=== PATIENT | female | born 1975 | race African-American/Black ===

== ENCOUNTER 2017-12-27 00:13 | Inpatient (IN) | payer SELFPAY ==
[2017-12-27 00:32] LABS: URINE HCG POC HCG NEGATIVE (Negative)
[2017-12-27 01:10] LABS: BARBITURATES NEG (NEG); BENZODIAZEPINES NEG (NEG); CANNABINOIDS POS (NEG); COCAINE NEG (NEG); METHADONE NEG (NEG); OPIATES NEG (NEG); PHENCYCLIDINE NEG (NEG)
[2017-12-27 01:21] LABS: AMPHETAMINE/METHAMPHETAMINE NEG (NEG); ETHANOL, URINE NEG (NEG)
[2017-12-27] MEDS: cloNIDine HCL 0.1 MG TABLET PO (01:47)
[2017-12-27 02:05] LABS: ADD MAN DIFF? NO
[2017-12-27 02:08] LABS: BASO # 0.1 x10^3/uL (0.0-0.2); BASO % 1 % (0-3); EOS # 0.1 x10^3/uL (0.0-0.7); EOS % 1 % (0-3); HEMATOCRIT 33.3 % (36.0-47.0); HEMOGLOBIN 11.2 g/dL (12.0-15.5); LYMPH # 4.9 x10^3/uL (1.0-4.8); LYMPH % 51 % (24-48); MEAN CORPUSCULAR HEMOGLOBIN 31 pg (25-35); MEAN CORPUSCULAR HGB CONC 34 g/dL (31-37); MEAN CORPUSCULAR VOLUME 91 fL (79-100); MONO # 0.3 x10^3/uL (0.0-1.1); MONO % 4 % (0-9); NEUT # 4.2 x10^3uL (1.8-7.7); NEUT % 44 % (31-73); PLATELET COUNT 275 x10^3/uL (140-400); RED BLOOD COUNT 3.65 x10^6/uL (3.50-5.40); RED CELL DISTRIBUTION WIDTH 13.5 % (11.5-14.5); WHITE BLOOD COUNT 9.6 x10^3/uL (4.0-11.0)
[2017-12-27 02:21] LABS: ANION GAP 9 (6-14); BLOOD UREA NITROGEN 7 mg/dL (7-20); BUN/CREATININE RATIO 12 (6-20); CALCIUM 8.9 mg/dL (8.5-10.1); CARBON DIOXIDE 25 mmol/L (21-32); CHLORIDE 102 mmol/L (98-107); CREATININE 0.6 mg/dL (0.6-1.0); GFR 132.7; GLUCOSE 256 mg/dL (70-99); NEG OBC SER NEG; POS OBC SER POS; POTASSIUM 3.6 mmol/L (3.5-5.1); PREG TEST PT QUAL NEGATIVE (NEG); SODIUM 136 mmol/L (136-145)
[2017-12-27 02:27] LABS: ALBUMIN 3.1 g/dL (3.4-5.0); ALBUMIN/GLOBULIN RATIO 0.8 (1.0-1.7); ALK PHOS 90 U/L (46-116); ALT (SGPT) 11 U/L (14-59); AST (SGOT) 8 U/L (15-37); LIPASE 125 U/L (73-393); TOTAL BILIRUBIN 0.2 mg/dL (0.2-1.0); TOTAL PROTEIN 7.2 g/dL (6.4-8.2)
[2017-12-27 02:29] LABS: TROPONINI < 0.017 ng/mL (0.000-0.055)
[2017-12-27 02:33] LABS: NT-PRO BNP 112 pg/mL (0-124)
[2017-12-27] MEDS: LABETALOL 20 MG/4 ML DISP.SYRIN. IVP (03:30)
[2017-12-27] MEDS ORDERED: LABETALOL 20 MG/4 ML DISP.SYRIN. IVP (03:30)
[2017-12-27] MEDS ORDERED: ONDANSETRON PF 4 MG/2 ML VIAL. IV (03:30)
[2017-12-27] MEDS ORDERED: INFLUENZA VAX SCREEN BY RX. MC (09:00)
[2017-12-27] MEDS: FLU VACC QS2017-18 (36MOS+)/PF 0.5 ML SYRINGE. VAX IM (09:00)
[2017-12-27 09:50] LABS: TROPONINI < 0.017 ng/mL (0.000-0.055)
[2017-12-27 10:41] LABS: ETHANOL < 10 mg/dL (0-10)
[2017-12-27 10:47] LABS: POC GLUCOSE 206 mg/dL (70-99)
[2017-12-27 11:34] LABS: CHOLESTEROL 145 mg/dL (0-200); HDLC 50 mg/dL (40-60); LDLC 83 mg/dL (0-100); NON-HDL CHOLESTEROL 95 mg/dL (0-129); TRIGLYCERIDES 58 mg/dL (0-150); VLDLC 12 mg/dL (0-40)
[2017-12-27 11:37] LABS: CHOLESTEROL/HDL RATIO 2.9
[2017-12-27 11:41] LABS: POC GLUCOSE 195 mg/dL (70-99)
[2017-12-27] MEDS: amLODIPine BESYLATE 10 MG TABLET PO (13:09)
[2017-12-27] MEDS: LISINOPRIL 5 MG TABLET. PO (13:09)
[2017-12-27] MEDS: hydroCHLOROthiazide 12.5 MG CAPSULE PO (13:09)
[2017-12-27] MEDS: ASPIRIN ENTERIC COATED 81 MG TABLET.DR. PO (13:09)
[2017-12-27 17:32] LABS: POC GLUCOSE 285 mg/dL (70-99)
[2017-12-28 08:05] LABS: POC GLUCOSE 256 mg/dL (70-99)
[2017-12-28] MEDS: glipiZIDE 5 MG TABLET PO (08:45)
[2017-12-28] MEDS ORDERED: ONDANSETRON PF 4 MG/2 ML VIAL. IV (08:45)
[2017-12-28] MEDS ORDERED: DEXTROSE 50% 25 GM / 50ML DISP.SYRIN. IV (08:45)
[2017-12-28] MEDS ORDERED: ACETAMINOPHEN 500 MG TABLET PO (08:45)
[2017-12-28] MEDS: clonazePAM 1 MG TABLET PO (10:32)
[2017-12-28] MEDS: ASPIRIN ENTERIC COATED 81 MG TABLET.DR. PO (10:32)
[2017-12-28] MEDS: hydroCHLOROthiazide 12.5 MG CAPSULE PO (10:32)
[2017-12-28] MEDS: LISINOPRIL 5 MG TABLET. PO (10:33)
[2017-12-28] MEDS: amLODIPine BESYLATE 10 MG TABLET PO (10:33)
[2017-12-28] MEDS ORDERED: INSULIN ASPART 300 UNITS/3 ML INSULN.PEN SQ (11:30)
[2017-12-28 12:00] LABS: POC GLUCOSE 305 mg/dL (70-99)
[2017-12-28] MEDS: metFORMIN 500 MG TABLET PO ×2 (12:49→18:01)
[2017-12-28] MEDS: INSULIN ASPART 300 UNITS/3 ML INSULN.PEN SQ ×4 (12:53→18:05)
[2017-12-28 17:29] LABS: POC GLUCOSE 184 mg/dL (70-99)
[2017-12-28] MEDS: diphenhydrAMINE HCL 25 MG CAPSULE PO (20:47)
[2017-12-28] MEDS: INSULIN DETEMIR 300 UNITS/3 ML INSULN.PEN. SQ (20:51)
[2017-12-28] MEDS ORDERED: INSULIN DETEMIR 300 UNITS/3 ML INSULN.PEN. SQ (21:00)
[2017-12-29 00:51] LABS: POC GLUCOSE 111 mg/dL (70-99)
[2017-12-29 01:08] LABS: HEMOGLOBIN A1C 9.9 % (4.8-5.6)
[2017-12-29 07:53] LABS: POC GLUCOSE 189 mg/dL (70-99)
[2017-12-29] MEDS: LISINOPRIL 5 MG TABLET. PO (09:26)
[2017-12-29] MEDS: metFORMIN 500 MG TABLET PO (09:26)
[2017-12-29] MEDS: amLODIPine BESYLATE 10 MG TABLET PO (09:27)
[2017-12-29] MEDS: ASPIRIN ENTERIC COATED 81 MG TABLET.DR. PO (09:27)
[2017-12-29] MEDS: hydroCHLOROthiazide 12.5 MG CAPSULE PO (09:27)
[2017-12-29] MEDS: INSULIN ASPART 300 UNITS/3 ML INSULN.PEN SQ ×4 (09:42→12:00)
[2017-12-29 12:30] LABS: POC GLUCOSE 84 mg/dL (70-99)
[2017-12-29] MEDS ORDERED: INSULIN DETEMIR 300 UNITS/3 ML INSULN.PEN. SQ (21:00)
== END 2017-12-29 16:20 | disposition home or self-care (01) | DRG 313 ==
LOC: ER 00:13 → 6 SOUTH 03:00
DX: R07.89 Other chest pain (principal); E11.65 Type 2 diabetes mellitus with hyperglycemia; E66.01 Morbid (severe) obesity due to excess calories; I10 Essential (primary) hypertension; E78.5 Hyperlipidemia, unspecified; F12.90 Cannabis use, unspecified, uncomplicated; F17.210 Nicotine dependence, cigarettes, uncomplicated; J44.9 Chronic obstructive pulmonary disease, unspecified; K21.9 Gastro-esophageal reflux disease without esophagitis; M19.90 Unspecified osteoarthritis, unspecified site; Z68.33 Body mass index [BMI] 33.0-33.9, adult; Z79.4 Long term (current) use of insulin; Z79.899 Other long term (current) drug therapy; Z82.3 Family history of stroke; Z82.49 Family history of ischemic heart disease and other diseases of the circulatory system; Z83.3 Family history of diabetes mellitus; Z91.19 Patient's noncompliance with other medical treatment and regimen; Z89.421 Acquired absence of other right toe(s)
CPT/HCPCS: 36415; 71045; 80053; 80061; 80307; 81025; 82962; 83036; 83690; 83880; 84443; 84484; 84703; 85025; 93005; 93306; 99285-25; 99406; G0480; J1815; Q0163

== ENCOUNTER 2019-06-01 03:44 | Inpatient (IN) | payer SELFPAY ==
[~2019-06-01] VITALS: Ht 165.1 cm; Wt 89.8 kg
[~2019-06-01 03:44] MED LIST: AMLO10TA4 PO; CLON2TAB PO; GLIP10TA13 PO; HYDR12.575 PO; INSU100C4 SQ; INSU100I13 SQ; INSU100V13 SQ; LISI-338 PO; METF10007 PO; METF500T16 PO
[2019-06-01] MEDS ORDERED: IV NORMAL SALINE 1000ML BAG 1,000 ML IV ONE ×2 (04:30→05:30)
[2019-06-01] MEDS ORDERED: ONDANSETRON PF 4 MG/2 ML VIAL. IV ONE (04:30)
[2019-06-01] MEDS ORDERED: METOCLOPRAMIDE HCL 10 MG/2 ML VIAL. IV ONE (04:30)
[2019-06-01 04:47] LABS: BASO # 0.1 x10^3/uL (0.0-0.2); BASO % 1 % (0-3); EOS % 0 % (0-3); HEMATOCRIT 39.3 % (36.0-47.0); HEMOGLOBIN 13.1 g/dL (12.0-15.5); LYMPH # 3.5 x10^3/uL (1.0-4.8); LYMPH % 23 % (24-48); MEAN CORPUSCULAR HEMOGLOBIN 30 pg (25-35); MEAN CORPUSCULAR HGB CONC 33 g/dL (31-37); MEAN CORPUSCULAR VOLUME 89 fL (79-100); MONO # 0.4 x10^3/uL (0.0-1.1); MONO % 3 % (0-9); NEUT # 10.9 x10^3/uL (1.8-7.7); NEUT % 73 % (31-73); PLATELET COUNT 338 x10^3/uL (140-400); RED BLOOD COUNT 4.41 x10^6/uL (3.50-5.40); RED CELL DISTRIBUTION WIDTH 14.7 % (11.5-14.5)
--- NOTE | 2019-06-01 04:51 | RAD ---
PORTABLE CHEST 1V Clinical Indication: Shortness of breath. Comparison: AP chest, 12/27/2017. Findings: There is tubing that projects over the left upper lung. The cardiomediastinal silhouette is normal. Lungs are clear. There is no pneumothorax. No pleural effusion is appreciated. No acute bone abnormality. IMPRESSION: No acute cardiopulmonary process. Electronically signed by: Cade Kramer MD (06/01/2019 4:49 AM) [facility]
[2019-06-01 05:00] LABS: CALCIUM 11.1 mg/dL (8.5-10.1); CREATININE 0.9 mg/dL (0.6-1.0); GFR 82.7; POTASSIUM 3.3 mmol/L (3.5-5.1); PREG TEST PT QUAL NEGATIVE (NEG)
[2019-06-01 05:03] LABS: ALBUMIN 4.4 g/dL (3.4-5.0); ALBUMIN/GLOBULIN RATIO 0.9 (1.0-1.7); TOTAL BILIRUBIN 0.6 mg/dL (0.2-1.0); TOTAL PROTEIN 9.2 g/dL (6.4-8.2)
[2019-06-01] MEDS ORDERED: ONDANSETRON PF 4 MG/2 ML VIAL. IV PRN (05:15)
--- NOTE | 2019-06-01 05:21 | PHYS DOC ---
Past Medical History Past Medical History: Diabetes-Type II, Hypertension Past Surgical History: Additional Past Surgical Histo: LEFT TOE AMPUTATION Alcohol Use: None Drug Use: Marijuana Adult General Chief Complaint Chief Complaint: NAUSEA/VOMITING/DIARRHA HPI HPI Patient is a 43 year old like 2. 2 more mild female who presents with chief complaint of vomiting. She has a history of high brought in by ambulance with chief complaint vomiting and high blood sugar. She has been off of her diabetes medicine since she got discharged from [facility] for his right toe amputation back in October. She says she has tried the [id number] insulin but "it doesn't wo rk for me" She has been vomiting for the last 24 hours she cannot keep anything down she has vomited 3 times in my presence in the few minutes was communicating with her initially. She really is not having any significant abdominal pain just some pressure in the upper abdomen no chest pain no trouble breathing she smokes cigarettes she says she denies alcohol or drugs I've ordered a drug screen that is pending at this time. Patient has occasional dysuria as well Review of Systems Review of Systems Constitutional: Denies fever or chills [] Eyes: Denies change in visual acuity, redness, or eye pain [] HENT: Denies nasal congestion or sore throat [] Respiratory: Denies cough or shortness of breath [] Cardiovascular: No additional information not addressed in HPI [] GI: Denies abdominal pain, nausea, vomiting, bloody stools or diarrhea [] : Denies dysuria or hematuria [] Musculoskeletal: Denies back pain or joint pain [] Integument: Denies rash or skin lesions [] Neurologic: Denies headache, focal weakness or sensory changes [] Endocrine: Denies polyuria or polydipsia [] All other systems were reviewed and found to be within normal limits, except as documented in this note. Current Medications Current Medications Current Medications Medications (Trade) Dose Ordered Sig/Tina Start Time Stop Time Status Last Admin Dose Admin Diphenhydramine HCl (Benadryl) 50 mg 1X ONCE 06/01/19 05:30 06/01/19 05:31 06/01/19 05:08 50 MG Insulin Human Regular (HumuLIN R VIAL) 10 unit 1X ONCE 06/01/19 05:30 06/01/19 05:31 Labetalol HCl (Normodyne Iv Push) 20 mg 1X ONCE 06/01/19 05:30 06/01/19 05:31 06/01/19 05:09 20 MG Metoclopramide HCl (Reglan Vial) 10 mg 1X ONCE 06/01/19 04:30 06/01/19 04:31 DC 06/01/19 04:41 10 MG Ondansetron HCl (Zofran) 4 mg PRN Q8HRS PRN 06/01/19 05:15 06/02/19 05:14 Sodium Chloride 1,000 ml @ 125 mls/hr Q8H 06/01/19 05:30 06/02/19 05:29 Allergies Allergies Allergies Coded Allergies Type Severity Reaction Last Updated Verified No Known Drug Allergies 12/27/17 No Physical Exam Physical Exam Constitutional: Well developed, well nourished, no acute distress, non-toxic appearance. [] HENT: Normocephalic, atraumatic, bilateral external ears normal, oropharynx moist, no oral exudates, nose normal. [] Eyes: PERRLA, EOMI, conjunctiva normal, no discharge. [] Neck: Normal range of motion, no tenderness, supple, no stridor. [] Cardiovascular:Heart rate regular rhythm, no murmur [] Lungs & Thorax: Bilateral breath sounds clear to auscultation [] Abdomen: Bowel sounds normal, soft, no tenderness, no masses, no pulsatile masses. [] Skin: Warm, dry, no erythema, no rash. [] Back: No tenderness, no CVA tenderness. [] Extremities: No tenderness, no cyanosis, no clubbing, ROM intact, no edema. [] Neurologic: Alert and oriented X 3, normal motor function, normal sensory function, no focal deficits noted. [] Psychologic: Affect normal, judgement normal, mood normal. [] Current Patient Data Vital Signs Vital Signs Date Time Temp Pulse Resp B/P (MAP) Pulse Ox O2 Delivery O2 Flow Rate FiO2 06/01/19 05:09 121 189/127 06/01/19 03:50 98.1 18 98 Room Air 98.1 Lab Values Laboratory Tests Test 06/01/19 04:40 White Blood Count 15.0 x10^3/uL (4.0-11.0) H Red Blood Count 4.41 x10^6/uL (3.50-5.40) Hemoglobin 13.1 g/dL (12.0-15.5) Hematocrit 39.3 % (36.0-47.0) Mean Corpuscular Volume 89 fL (79-100) Mean Corpuscular Hemoglobin 30 pg (25-35) Mean Corpuscular Hemoglobin Concent 33 g/dL (31-37) Red Cell Distribution Width 14.7 % (11.5-14.5) H Platelet Count 338 x10^3/uL (140-400) Neutrophils (%) (Auto) 73 % (31-73) Lymphocytes (%) (Auto) 23 % (24-48) L Monocytes (%) (Auto) 3 % (0-9) Eosinophils (%) (Auto) 0 % (0-3) Basophils (%) (Auto) 1 % (0-3) Neutrophils # (Auto) 10.9 x10^3/uL (1.8-7.7) H Lymphocytes # (Auto) 3.5 x10^3/uL (1.0-4.8) Monocytes # (Auto) 0.4 x10^3/uL (0.0-1.1) Eosinophils # (Auto) 0.0 x10^3/uL (0.0-0.7) Basophils # (Auto) 0.1 x10^3/uL (0.0-0.2) Sodium Level 135 mmol/L (136-145) L Potassium Level 3.3 mmol/L (3.5-5.1) L Chloride Level 92 mmol/L (98-107) L Carbon Dioxide Level 28 mmol/L (21-32) Anion Gap 15 (6-14) H Blood Urea Nitrogen 15 mg/dL (7-20) Creatinine 0.9 mg/dL (0.6-1.0) Estimated GFR (Cockcroft-Gault) 82.7 BUN/Creatinine Ratio 17 (6-20) Glucose Level 368 mg/dL (70-99) H Calcium Level 11.1 mg/dL (8.5-10.1) H Total Bilirubin 0.6 mg/dL (0.2-1.0) Aspartate Amino Transferase (AST) 14 U/L (15-37) L Alanine Aminotransferase (ALT) 24 U/L (14-59) Alkaline Phosphatase 130 U/L (46-116) H Troponin I Quantitative < 0.017 ng/mL (0.000-0.055) Total Protein 9.2 g/dL (6.4-8.2) H Albumin 4.4 g/dL (3.4-5.0) Albumin/Globulin Ratio 0.9 (1.0-1.7) L Lipase 75 U/L (73-393) Serum Test, Qualitative Negative (NEG) Laboratory Tests 06/01/19 04:40 Laboratory Tests 06/01/19 04:40 EKG EKG EKG shows sinus tach rate 128 there are some likely rate related ST depressions noted laterally E Baron also be related to hypokalemia of note the troponin was negative and patient denied chest pain[] Radiology/Procedures Radiology/Procedures [] Impressions: Findings: There is tubing that projects over the left upper lung. The cardiomediastinal silhouette is normal. Lungs are clear. There is no pneumothorax. No pleural effusion is appreciated. No acute bone abnormality. IMPRESSION: No acute cardiopulmonary process. Electronically signed by: Cade Del Angel MD (06/01/2019 4:49 AM) [facility] DICTATED and SIGNED BY: CADE DEL ANGEL MD DATE: 06/01/19 0449 Course & Med Decision Making Course & Med Decision Making Pertinent Labs and Imaging studies reviewed. (See chart for details) []Noted the leukocytosis is probably from vomiting urinalysis is not received yet. Chest x-ray was negative for pneumonia. Patient is not here regularly for this complaints I have opted to do a CT scan abdomen and pelvis to rule out occult obstruction or other infection. Patient will be admitted to the service of Dr. dixon for further evaluation and treatment of what is presumed to be gastroparesis. Potassium was a little low we will replete that otherwise we gave Reglan IV fluids and Zofran and Benadryl in the emergency room. In addition blood pressure was 190/120 with some tachycardia in the 115 120 range. This could be from her discomfort but she has has poorly controlled hypertension she is not taking medicine for that either side did give her dose of IV labetalol in the emergency room. At the time of this dictation his CT scan is currently pending. Blood sugar was elevated anion gap was 15 but the bicarbonate level was normal I do not think this is DKA I did give him 1 dose of IV insulin in the emergency room. Dragon Disclaimer Dragon Disclaimer This electronic medical record was generated, in whole or in part, using a voice recognition dictation system. Departure Departure Impression: Primary Impression: Gastroparesis Additional Impression: Hyperglycemia Disposition: ADMITTED INPATIENT Admitting Physician: BAYRON Condition: STABLE Referrals: NO PCP (PCP) Problem Qualifiers ALICIA BAUER MD Jun 01, 2019 05:21
[2019-06-01] MEDS ORDERED: LABETALOL 20 MG/4 ML DISP.SYRIN. IVP ONE (05:30)
[2019-06-01] MEDS ORDERED: INSULIN REGULAR 100 UNIT/ML 3ML VIAL. IV ONE (05:30)
[2019-06-01] MEDS ORDERED: diphenhydrAMINE 50 MG/ML VIAL IVP ONE (05:30)
[2019-06-01] MEDS: POTASSIUM CHLORIDE 10MEQ 100 ML IV SCH ×2 (05:38→06:49)
--- NOTE | 2019-06-01 06:14 | RAD ---
PQRS Compliance Statement: One or more of the following individualized dose reduction techniques were utilized for this examination: 1. Automated exposure control 2. Adjustment of the mA and/or kV according to patient size 3. Use of iterative reconstruction technique CT ABDOMEN PELVIS WO CONTRAST Clinical Indication: Poorly controlled diabetic, periumbilical pain and vomiting. Comparison: None. Technique: Helical CT imaging of the abdomen and pelvis is performed without IV or oral contrast. Findings: Evaluation of solid organs and bowel is limited without oral and IV contrast, decreasing sensitivity for detection of pathology. Respiratory motion artifact in the lung bases. Groundglass opacities in the bilateral lower lobes are probably atelectasis. No consolidation. Cardiac size normal. Liver, gallbladder, spleen, pancreas, adrenal glands, abdominal aorta, and kidneys are normal. Stomach unremarkable. No dilated small bowel. No colon wall thickening. The appendix is normal. No abdominal adenopathy or free fluid. The urinary bladder is mildly distended, otherwise normal. Uterus unremarkable. No pelvic free fluid. No acute bone abnormality. IMPRESSION: No acute abdominal or pelvic abnormality. Electronically signed by: Cade Kramer MD (06/01/2019 6:11 AM) [facility]
[2019-06-01] MEDS ORDERED: cloNIDine HCL 0.1 MG TABLET PO ONE (07:00)
--- NOTE | 2019-06-01 07:19 | EKG ---
[facility] [address] [place] [address] Test Date: 2019-06-01 Test Time: 04:52:19 Pat Name: NIKKI CAMPA Department: Room: Gender: F Fox Farmer: : 1975 Requested By: ALICIA BAUER Order Number: [id number] Reading MD: Measurements Intervals [place] Rate: 128 P: -82 NC: 152 QRS: 49 QRSD: 92 T: 76 QT: 298 QTc: 438 Interpretive Statements SINUS TACHYCARDIA LEFT ATRIAL ABNORMALITY LVH WITH REPOLARIZATION ABNORMALITY ABNORMAL ECG RI6.01 No previous ECG available for comparison
[2019-06-01] MEDS ORDERED: ACETAMINOPHEN/CODEINE 300/30MG TABLET. PO PRN (07:30)
[2019-06-01] MEDS ORDERED: DEXTROSE 50% 25 GM / 50ML DISP.SYRIN. IV PRN (07:30)
[2019-06-01] MEDS ORDERED: ACETAMINOPHEN 500 MG TABLET PO PRN (07:30)
[2019-06-01] MEDS: IV NORMAL SALINE 1000ML BAG 1,000 ML IV SCH ×3 (07:37→23:04)
--- NOTE | 2019-06-01 08:00 | NUR ---
Patient is a 43 year old female, admitted due to nausea, vomiting for 2 days. She arrived at the unit at 0700 via bed.The patient is sleeping but easily arousable, denies pain, claims that nausea is controlled. She is oriented to the unit and hospital policies; call light placed within reach.
[2019-06-01 08:33] VITALS: BP 102/66
[2019-06-01] MEDS ORDERED: NON FORMULARY ITEM (Insulin Detemir (Levemir) 10 UNIT) SQ SCH (09:00)
[2019-06-01] MEDS: LISINOPRIL 5 MG TABLET. PO SCH (09:57)
[2019-06-01] MEDS: INSULIN LISPRO 300 UNITS/3 ML INSULN.PEN. SQ SCH ×6 (10:06→17:00)
[2019-06-01] MEDS: ONDANSETRON PF 4 MG/2 ML VIAL. IV PRN ×2 (10:32→20:55)
[2019-06-01 10:58] VITALS: BP 194/170
[2019-06-01 11:00] VITALS: BP 195/88
--- NOTE | 2019-06-01 11:09 | PDOC1 ---
History and Physical Date of Admission Date of Admission DATE: 06/01/19 TIME: 11:04 Identification/Chief Complaint Chief Complaint n/v Source Source: Caregiver, Chart review, Patient History of Present Illness History of Present Illness 84-year-old -[place] female, obese with a BMI 34, known diabetes type 2 on Levemir 25 daily at bedtime and she cannot recall her short-acting insulin, self-pay, hence has been off meds with unknown A1c. Vomited 5 times at the ER. Still vomiting dry heaving and restless. Blood sugar was 400s on admission. No gap. Still dry heaving and has never had a formal gastric emptying test or gas troparesis diagnosis. She has been having this problem for years. Also mentions to me what sounds like sxs of neuropathy - not on any meds We will back down to nothing by mouth, continue normal saline, increase rate to 125 mL an hour, get gastric emptying test Start gabapentin, start a second agent antinausea meds Check A1c Blood pressure on the high side but currently dry heaving I have added when necessary's Hypokalemic 3.3 and GOT K replacement 20 IV total through the ER Mild pseudohyponatremia 135 with reactive leukocytosis 15 We'll check a UA in this bad diabetic Past Medical History Cardiovascular: HTN, Hyperlipidemia Pulmonary: No pertinent hx CENTRAL NERVOUS SYSTEM: Other GI: GERD Heme/Onc: No pertinent hx Hepatobiliary: No pertinent hx Psych: No pertinent hx Musculoskeletal: Osteoarthritis Rheumatologic: No pertinent hx Infectious disease: Other Renal/: No pertinent hx Endocrine: Diabetes Past Surgical History Past Surgical History: , Other Family History Family History: Coronary Artery Disease, Stroke Social History Smoke: No ALCOHOL: none Drugs: Marijuana Current Medications Current Medications Current Medications Metoclopramide HCl (Reglan Vial) 10 mg 1X ONCE IV Last administered on 06/01/19at 04:41; Start 06/01/19 at 04:30; Stop 06/01/19 at 04:31; Status DC Ondansetron HCl (Zofran) 4 mg 1X ONCE IV Last administered on 06/01/19at 04:42; Start 06/01/19 at 04:30; Stop 06/01/19 at 04:31; Status DC Sodium Chloride 1,000 ml @ 1,000 mls/hr 1X ONCE IV Last administered on 06/01/19at 04:41; Start 06/01/19 at 04:30; Stop 06/01/19 at 05:29; Status DC Labetalol HCl (Normodyne Iv Push) 20 mg 1X ONCE IVP Last administered on 06/01/19at 05:09; Start 06/01/19 at 05:30; Stop 06/01/19 at 05:31; Status DC Diphenhydramine HCl (Benadryl) 50 mg 1X ONCE IVP Last administered on at 05:08; Start 06/01/19 at 05:30; Stop 06/01/19 at 05:31; Status DC Sodium Chloride 1,000 ml @ 1,000 mls/hr 1X ONCE IV Last administered on 06/01/19at 05:08; Start 06/01/19 at 05:30; Stop 06/01/19 at 06:29; Status DC Insulin Human Regular (HumuLIN R VIAL) 10 unit 1X ONCE IV Last administered on 06/01/19at 05:37; Start 06/01/19 at 05:30; Stop 06/01/19 at 05:31; Status DC Ondansetron HCl (Zofran) 4 mg PRN Q8HRS PRN IV NAUSEA/VOMITING 1ST CHOICE; Start 06/01/19 at 05:15; Stop 06/01/19 at 07:30; Status DC Sodium Chloride 1,000 ml @ 125 mls/hr Q8H IV Last administered on 06/01/19at 07:37; Start 06/01/19 at 05:30; Stop 06/02/19 at 05:29 Potassium Chloride/Water 100 ml @ 100 mls/hr Q1H IV Last administered on 06/01/19at 06:49; Start 06/01/19 at 06:00; Stop 06/01/19 at 07:59; Status DC Clonidine HCl (Catapres) 0.1 mg 1X ONCE PO Last administered on 06/01/19at 06:38; Start 06/01/19 at 07:00; Stop 06/01/19 at 07:01; Status DC Ondansetron HCl (Zofran) 4 mg PRN Q6HRS PRN IV NAUSEA/VOMITING 1ST CHOICE Last administered on 06/01/19at 10:32; Start 06/01/19 at 07:30 Labetalol HCl (Normodyne Iv Push) 20 mg PRN Q2HR PRN IVP HYPERTENSION; Start 06/01/19 at 07:30 Acetaminophen (Tylenol) 500 mg PRN Q6HRS PRN PO HEADACHE / TEMP; Start 06/01/19 at 07:30 Acetaminophen/ Codeine Phosphate (Tylenol #3) 1 tab PRN Q6HRS PRN PO MILD PAIN 1-3; Start 06/01/19 at 07:30 Prochlorperazine Edisylate (Compazine) 10 mg PRN Q6HRS PRN IV NAUSEA/VOMITING; Start 06/01/19 at 07:30 Non-Formulary Medication (Insulin Detemir (Levemir)) 10 unit TID SQ ; Start 06/01/19 at 09:00; Stop 06/01/19 at 09:00; Status DC Insulin Glargine (Lantus) 30 units QHS SQ ; Start 06/01/19 at 21:00 Lisinopril (Prinivil) 5 mg DAILY PO Last administered on 06/01/19at 09:57; Start 06/01/19 at 09:00 Insulin Human Lispro (HumaLOG) 10 units TIDWMEALS SQ Last administered on 06/01/19at 10:06; Start 06/01/19 at 08:00 Insulin Human Lispro (HumaLOG) 0-9 UNITS TIDWMEALS SQ Last administered on 06/01/19at 10:06; Start 06/01/19 at 08:00 Dextrose (Dextrose 50%-Water Syringe) 12.5 gm PRN Q15MIN PRN IV SEE COMMENTS; Start 06/01/19 at 07:30 Active Scripts Active Metformin Hcl 500 Mg Tablet 500 Mg PO BIDWMEALS 30 Days Lisinopril 5 Mg Tablet 1 Tab PO DAILY Levemir (Insulin Detemir) 100 Unit/1 Ml Vial 30 Unit SQ QHS 30 Days Levemir (Insulin Detemir) 100 Unit/1 Ml Vial 10 Unit SQ TID 30 Days Reported Lisinopril 5 Mg Tablet 1 Tab PO DAILY Allergies Allergies: Coded Allergies: No Known Drug Allergies (Unverified , 12/27/17) ROS Review of System As per history of present illness, dry heaving, nausea, emesis, the rest of ROS 14 point negative Physical Exam General: Alert, Oriented X3, Cooperative, Other (looks uncomfortable, restless because of dry heaving) HEENT: Atraumatic, PERRLA Lungs: Clear to auscultation, Normal air movement Heart: S1S2, no thrills, no rubs, no gallops, no murmurs, other (sinus tachycardia) Abdomen: Normal bowel sounds, Soft, No tenderness, No hepatosplenomegaly, No masses Rectal Exam: not examined PELVIC: Nml ext genitalia Extremities: No clubbing, No cyanosis, No edema, Normal pulses, No tenderness/swelling Skin: No rashes, No breakdown, No significant lesion Neuro: Normal gait, Normal speech, Strength at 5/5 X4 ext, Normal tone, Sensation intact, Cranial nerves 3-12 NL, Reflexes 2+ Psych/Mental Status: Mental status NL, Mood NL Vitals Vitals Vital Signs Date Time Temp Pulse Resp B/P (MAP) Pulse Ox O2 Delivery O2 Flow Rate FiO2 06/01/19 10:58 98.9 111 16 194/170 (178) 100 Room Air 98.9 Labs Labs Laboratory Tests Test 06/01/19 04:40 06/01/19 09:34 White Blood Count 15.0 x10^3/uL (4.0-11.0) Red Blood Count 4.41 x10^6/uL (3.50-5.40) Hemoglobin 13.1 g/dL (12.0-15.5) Hematocrit 39.3 % (36.0-47.0) Mean Corpuscular Volume 89 fL (79-100) Mean Corpuscular Hemoglobin 30 pg (25-35) Mean Corpuscular Hemoglobin Concent 33 g/dL (31-37) Red Cell Distribution Width 14.7 % (11.5-14.5) Platelet Count 338 x10^3/uL (140-400) Neutrophils (%) (Auto) 73 % (31-73) Lymphocytes (%) (Auto) 23 % (24-48) Monocytes (%) (Auto) 3 % (0-9) Eosinophils (%) (Auto) 0 % (0-3) Basophils (%) (Auto) 1 % (0-3) Neutrophils # (Auto) 10.9 x10^3/uL (1.8-7.7) Lymphocytes # (Auto) 3.5 x10^3/uL (1.0-4.8) Monocytes # (Auto) 0.4 x10^3/uL (0.0-1.1) Eosinophils # (Auto) 0.0 x10^3/uL (0.0-0.7) Basophils # (Auto) 0.1 x10^3/uL (0.0-0.2) Sodium Level 135 mmol/L (136-145) Potassium Level 3.3 mmol/L (3.5-5.1) Chloride Level 92 mmol/L (98-107) Carbon Dioxide Level 28 mmol/L (21-32) Anion Gap 15 (6-14) Blood Urea Nitrogen 15 mg/dL (7-20) Creatinine 0.9 mg/dL (0.6-1.0) Estimated GFR (Cockcroft-Gault) 82.7 BUN/Creatinine Ratio 17 (6-20) Glucose Level 368 mg/dL (70-99) Calcium Level 11.1 mg/dL (8.5-10.1) Total Bilirubin 0.6 mg/dL (0.2-1.0) Aspartate Amino Transf (AST/SGOT) 14 U/L (15-37) Alanine Aminotransferase (ALT/SGPT) 24 U/L (14-59) Alkaline Phosphatase 130 U/L (46-116) Troponin I Quantitative < 0.017 ng/mL (0.000-0.055) Total Protein 9.2 g/dL (6.4-8.2) Albumin 4.4 g/dL (3.4-5.0) Albumin/Globulin Ratio 0.9 (1.0-1.7) Lipase 75 U/L (73-393) Serum Test, Qualitative Negative (NEG) Glucose (Fingerstick) 244 mg/dL (70-99) Laboratory Tests Test 06/01/19 04:40 06/01/19 09:34 White Blood Count 15.0 x10^3/uL (4.0-11.0) Red Blood Count 4.41 x10^6/uL (3.50-5.40) Hemoglobin 13.1 g/dL (12.0-15.5) Hematocrit 39.3 % (36.0-47.0) Mean Corpuscular Volume 89 fL (79-100) Mean Corpuscular Hemoglobin 30 pg (25-35) Mean Corpuscular Hemoglobin Concent 33 g/dL (31-37) Red Cell Distribution Width 14.7 % (11.5-14.5) Platelet Count 338 x10^3/uL (140-400) Neutrophils (%) (Auto) 73 % (31-73) Lymphocytes (%) (Auto) 23 % (24-48) Monocytes (%) (Auto) 3 % (0-9) Eosinophils (%) (Auto) 0 % (0-3) Basophils (%) (Auto) 1 % (0-3) Neutrophils # (Auto) 10.9 x10^3/uL (1.8-7.7) Lymphocytes # (Auto) 3.5 x10^3/uL (1.0-4.8) Monocytes # (Auto) 0.4 x10^3/uL (0.0-1.1) Eosinophils # (Auto) 0.0 x10^3/uL (0.0-0.7) Basophils # (Auto) 0.1 x10^3/uL (0.0-0.2) Sodium Level 135 mmol/L (136-145) Potassium Level 3.3 mmol/L (3.5-5.1) Chloride Level 92 mmol/L (98-107) Carbon Dioxide Level 28 mmol/L (21-32) Anion Gap 15 (6-14) Blood Urea Nitrogen 15 mg/dL (7-20) Creatinine 0.9 mg/dL (0.6-1.0) Estimated GFR (Cockcroft-Gault) 82.7 BUN/Creatinine Ratio 17 (6-20) Glucose Level 368 mg/dL (70-99) Calcium Level 11.1 mg/dL (8.5-10.1) Total Bilirubin 0.6 mg/dL (0.2-1.0) Aspartate Amino Transf (AST/SGOT) 14 U/L (15-37) Alanine Aminotransferase (ALT/SGPT) 24 U/L (14-59) Alkaline Phosphatase 130 U/L (46-116) Troponin I Quantitative < 0.017 ng/mL (0.000-0.055) Total Protein 9.2 g/dL (6.4-8.2) Albumin 4.4 g/dL (3.4-5.0) Albumin/Globulin Ratio 0.9 (1.0-1.7) Lipase 75 U/L (73-393) Serum Test, Qualitative Negative (NEG) Glucose (Fingerstick) 244 mg/dL (70-99) VTE Prophylaxis Ordered VTE Prophylaxis Devices: Yes VTE Pharmacological Prophylaxi: Yes Assessment/Plan Assessment/Plan DM 2 uncontrolled with unknown A1c HONK, mild with no coma Likely undiagnosed gastroparesis Hypokalemia secondary to vomiting Pseudohyponatremia Reactive leukocytosis-rule out UTI in this diabetic Sinus tachycardia Neuropathy PLAn: Admit 2 midnights Increase normal saline to 1 25 mL an hour Resume home Levemir Start NovoLog 10units 3 times a day Check A1c Gastric emptying test Add second agent antinausea meds No need for GI consult-I might be able to manage this Monitor that reactive leukocytosis Check a UA Recheck labs tomorrow Trial of gabapentin for the neuropathy TIERRA BAUMAN MD Jun 01, 2019 11:09
--- NOTE | 2019-06-01 11:17 | NUR ---
SW reviewed pt's medical chart and evaluated for potential needs. Pt is from home with spouse and was admitted for gastroparesis and hyperglycemia. Pt is on room air and PT/OT has not been ordered. Pt is uninsured and does not qualify for services unless she can private pay. At this time, there are no dc needs. SW will continue to follow and be available if dc planning is required.
[2019-06-01] MEDS: LABETALOL 20 MG/4 ML DISP.SYRIN. IVP PRN ×2 (11:29→22:50)
[2019-06-01] MEDS: GABAPENTIN 100 MG CAPSULE. PO SCH ×2 (14:00→21:00)
[2019-06-01 15:00] VITALS: BP 148/87
[2019-06-01] MEDS ORDERED: LIDO:MAALOX 1:1 20 ML SINGLE DOSE. PO PRN (16:15)
[2019-06-01] MEDS ORDERED: fentaNYL PF VIAL 100 MCG/2 ML VIAL IV PRN (16:15)
[2019-06-01] MEDS: PANTOPRAZOLE IV PUSH 40 MG VIAL. IVP SCH (16:19)
[2019-06-01] MEDS: PROCHLORPERAZINE 10 MG/2 ML VIAL. IV PRN (16:26)
[2019-06-01 19:02] VITALS: BP 87/49
[2019-06-01] MEDS ORDERED: ACETAMINOPHEN 650 MG SUPP.RECT. PR PRN (21:30)
[2019-06-01] MEDS: diphenhydrAMINE 50 MG/ML VIAL IVP PRN (22:25)
[2019-06-01] MEDS: INSULIN GLARGINE 300 UNITS/3 ML INSULN.PEN. SQ SCH (23:09)
[2019-06-01 23:52] VITALS: BP 99/55
[2019-06-02] VITALS (7 sets, daily range): BP systolic 74–216; BP diastolic 41–120
[2019-06-02 01:07] LABS: HEMOGLOBIN A1C 11.5 % (4.8-5.6)
[2019-06-02] MEDS: PROCHLORPERAZINE 10 MG/2 ML VIAL. IV PRN ×3 (03:36→18:14)
[2019-06-02] MEDS: LABETALOL 20 MG/4 ML DISP.SYRIN. IVP PRN (03:46)
[2019-06-02 04:38] LABS: BILIRUBIN,URINE NEGATIVE (NEG); CLARITY,URINE CLEAR; COLOR,URINE YELLOW; NITRITE,URINE NEGATIVE (NEG); PH,URINE 6.5; PROTEIN,URINE NEGATIVE (NEG-TRACE); UROBILINOGEN,URINE 0.2 mg/dL (0.2 mg/dL)
[2019-06-02 04:38] LABS: BASO # 0.1 x10^3/uL (0.0-0.2); BASO % 0 % (0-3); EOS % 0 % (0-3); HEMATOCRIT 37.1 % (36.0-47.0); HEMOGLOBIN 12.2 g/dL (12.0-15.5); LYMPH # 4.1 x10^3/uL (1.0-4.8); LYMPH % 26 % (24-48); MEAN CORPUSCULAR HEMOGLOBIN 30 pg (25-35); MEAN CORPUSCULAR HGB CONC 33 g/dL (31-37); MEAN CORPUSCULAR VOLUME 90 fL (79-100); MONO # 0.6 x10^3/uL (0.0-1.1); MONO % 4 % (0-9); NEUT # 11.2 x10^3/uL (1.8-7.7); NEUT % 70 % (31-73); PLATELET COUNT 303 x10^3/uL (140-400); RED BLOOD COUNT 4.12 x10^6/uL (3.50-5.40); RED CELL DISTRIBUTION WIDTH 14.8 % (11.5-14.5); WHITE BLOOD COUNT 15.9 x10^3/uL (4.0-11.0)
[2019-06-02 04:44] LABS: BARBITURATES NEG (NEG); BENZODIAZEPINES NEG (NEG); CANNABINOIDS POS (NEG); COCAINE NEG (NEG); METHADONE NEG (NEG); OPIATES NEG (NEG); PHENCYCLIDINE NEG (NEG)
[2019-06-02 04:46] LABS: AMPHETAMINE/METHAMPHETAMINE NEG (NEG)
[2019-06-02 04:51] LABS: BACTERIA,URINE MODERATE /HPF (0-FEW); RBC,URINE OCC /HPF (0-2); SQUAMOUS EPITHELIAL CELL,UR MOD /LPF
[2019-06-02 05:01] LABS: ALBUMIN 3.8 g/dL (3.4-5.0); ALBUMIN/GLOBULIN RATIO 0.9 (1.0-1.7); CALCIUM 9.1 mg/dL (8.5-10.1); CREATININE 0.7 mg/dL (0.6-1.0); GFR 110.5; POTASSIUM 3.1 mmol/L (3.5-5.1); TOTAL BILIRUBIN 0.8 mg/dL (0.2-1.0); TOTAL PROTEIN 8.2 g/dL (6.4-8.2)
[2019-06-02] MEDS: ONDANSETRON PF 4 MG/2 ML VIAL. IV PRN ×2 (06:16→15:25)
[2019-06-02] MEDS: INSULIN LISPRO 300 UNITS/3 ML INSULN.PEN. SQ SCH ×6 (08:00→17:56)
[2019-06-02] MEDS: LISINOPRIL 5 MG TABLET. PO SCH ×2 (09:00→10:03)
[2019-06-02] MEDS: GABAPENTIN 100 MG CAPSULE. PO SCH ×4 (09:00→20:51)
[2019-06-02] MEDS: PANTOPRAZOLE IV PUSH 40 MG VIAL. IVP SCH (10:01)
--- NOTE | 2019-06-02 12:14 | PDOC ---
PROGRESS NOTES Chief Complaint Chief Complaint LIKELY UNDIAGNOSED DM GASTROPARESIS WITH HYPOKALEMIA DM 2 uncontrolled with unknown A1c HONK, mild with no coma Hypokalemia secondary to vomiting - corrected Pseudohyponatremia, corrected Reactive leukocytosis- Neuropathy NO UTI History of Present Illness History of Present Illness Slightly better, at least not dry heaving or restless But still nauseated bucket at bedside Has yet to do the gastric emptying test - part 2 Blood sugars are better since I have adjusted insulin She will need scripts once she goes home tomorrow Plan: follow-up GET She will need RX once she gets home tomorrow Okay to be out of telemetry DC telemetry Okay to transfer out of telemetry floor NO UTI dw RN at bedside and pt Vitals Vitals Vital Signs Date Time Temp Pulse Resp B/P (MAP) Pulse Ox O2 Delivery O2 Flow Rate FiO2 06/02/19 07:25 98.5 100 16 136/84 (101) 99 Room Air 98.5 Physical Exam General: Alert, Oriented X3, Cooperative, Other (looks uncomfortable, restless because of dry heaving) Abdomen: Normal bowel sounds, Soft, No tenderness, No hepatosplenomegaly, No masses Extremities: No clubbing, No cyanosis, No edema, Normal pulses, No tenderness/swelling Skin: No rashes, No breakdown, No significant lesion Labs LABS Laboratory Tests Test 06/01/19 12:25 06/01/19 17:57 06/01/19 19:44 06/01/19 21:40 Glucose (Fingerstick) 162 mg/dL (70-99) 116 mg/dL (70-99) 120 mg/dL (70-99) 125 mg/dL (70-99) Test 06/02/19 00:42 06/02/19 03:19 06/02/19 03:20 06/02/19 07:34 Glucose (Fingerstick) 117 mg/dL (70-99) 172 mg/dL (70-99) Urine Collection Type Unknown Urine Color Yellow Urine Clarity Clear Urine pH 6.5 Urine Specific Franklin 1.010 Urine Protein Negative mg/dL (NEG-TRACE) Urine Glucose (UA) Negative mg/dL (NEG) Urine Ketones (Stick) 15 mg/dL (NEG) Urine Blood Negative (NEG) Urine Nitrite Negative (NEG) Urine Bilirubin Negative (NEG) Urine Urobilinogen Dipstick 0.2 mg/dL (0.2 mg/dL) Urine Leukocyte Esterase Trace (NEG) Urine RBC Occ /HPF (0-2) Urine WBC 5-10 /HPF (0-4) Urine Squamous Epithelial Cells Mod /LPF Urine Bacteria Moderate /HPF (0-FEW) Urine Mucus Slight /LPF Urine Opiates Screen Neg (NEG) Urine Methadone Screen Neg (NEG) Urine Barbiturates Neg (NEG) Urine Phencyclidine Screen Neg (NEG) Urine Amphetamine/Methamphetamine Neg (NEG) Urine Benzodiazepines Screen Neg (NEG) Urine Cocaine Screen Neg (NEG) Urine Cannabinoids Screen Pos (NEG) Urine Ethyl Alcohol Neg (NEG) White Blood Count 15.9 x10^3/uL (4.0-11.0) Red Blood Count 4.12 x10^6/uL (3.50-5.40) Hemoglobin 12.2 g/dL (12.0-15.5) Hematocrit 37.1 % (36.0-47.0) Mean Corpuscular Volume 90 fL (79-100) Mean Corpuscular Hemoglobin 30 pg (25-35) Mean Corpuscular Hemoglobin Concent 33 g/dL (31-37) Red Cell Distribution Width 14.8 % (11.5-14.5) Platelet Count 303 x10^3/uL (140-400) Neutrophils (%) (Auto) 70 % (31-73) Lymphocytes (%) (Auto) 26 % (24-48) Monocytes (%) (Auto) 4 % (0-9) Eosinophils (%) (Auto) 0 % (0-3) Basophils (%) (Auto) 0 % (0-3) Neutrophils # (Auto) 11.2 x10^3/uL (1.8-7.7) Lymphocytes # (Auto) 4.1 x10^3/uL (1.0-4.8) Monocytes # (Auto) 0.6 x10^3/uL (0.0-1.1) Eosinophils # (Auto) 0.0 x10^3/uL (0.0-0.7) Basophils # (Auto) 0.1 x10^3/uL (0.0-0.2) Sodium Level 138 mmol/L (136-145) Potassium Level 3.1 mmol/L (3.5-5.1) Chloride Level 97 mmol/L (98-107) Carbon Dioxide Level 25 mmol/L (21-32) Anion Gap 16 (6-14) Blood Urea Nitrogen 12 mg/dL (7-20) Creatinine 0.7 mg/dL (0.6-1.0) Estimated GFR (Cockcroft-Gault) 110.5 BUN/Creatinine Ratio 17 (6-20) Glucose Level 148 mg/dL (70-99) Calcium Level 9.1 mg/dL (8.5-10.1) Total Bilirubin 0.8 mg/dL (0.2-1.0) Aspartate Amino Transf (AST/SGOT) 16 U/L (15-37) Alanine Aminotransferase (ALT/SGPT) 21 U/L (14-59) Alkaline Phosphatase 109 U/L (46-116) Total Protein 8.2 g/dL (6.4-8.2) Albumin 3.8 g/dL (3.4-5.0) Albumin/Globulin Ratio 0.9 (1.0-1.7) Review of Systems Review of Systems nausea, no emesis, no chest pain, some minor abd dc, no fevers Comment Review of Relevant I have reviewed the following items dary (where applicable) has been applied. Labs Laboratory Tests Test 06/01/19 04:40 06/01/19 09:34 06/01/19 12:25 06/01/19 17:57 White Blood Count 15.0 x10^3/uL (4.0-11.0) Red Blood Count 4.41 x10^6/uL (3.50-5.40) Hemoglobin 13.1 g/dL (12.0-15.5) Hematocrit 39.3 % (36.0-47.0) Mean Corpuscular Volume 89 fL (79-100) Mean Corpuscular Hemoglobin 30 pg (25-35) Mean Corpuscular Hemoglobin Concent 33 g/dL (31-37) Red Cell Distribution Width 14.7 % (11.5-14.5) Platelet Count 338 x10^3/uL (140-400) Neutrophils (%) (Auto) 73 % (31-73) Lymphocytes (%) (Auto) 23 % (24-48) Monocytes (%) (Auto) 3 % (0-9) Eosinophils (%) (Auto) 0 % (0-3) Basophils (%) (Auto) 1 % (0-3) Neutrophils # (Auto) 10.9 x10^3/uL (1.8-7.7) Lymphocytes # (Auto) 3.5 x10^3/uL (1.0-4.8) Monocytes # (Auto) 0.4 x10^3/uL (0.0-1.1) Eosinophils # (Auto) 0.0 x10^3/uL (0.0-0.7) Basophils # (Auto) 0.1 x10^3/uL (0.0-0.2) Sodium Level 135 mmol/L (136-145) Potassium Level 3.3 mmol/L (3.5-5.1) Chloride Level 92 mmol/L (98-107) Carbon Dioxide Level 28 mmol/L (21-32) Anion Gap 15 (6-14) Blood Urea Nitrogen 15 mg/dL (7-20) Creatinine 0.9 mg/dL (0.6-1.0) Estimated GFR (Cockcroft-Gault) 82.7 BUN/Creatinine Ratio 17 (6-20) Glucose Level 368 mg/dL (70-99) Hemoglobin A1c 11.5 % (4.8-5.6) Calcium Level 11.1 mg/dL (8.5-10.1) Total Bilirubin 0.6 mg/dL (0.2-1.0) Aspartate Amino Transf (AST/SGOT) 14 U/L (15-37) Alanine Aminotransferase (ALT/SGPT) 24 U/L (14-59) Alkaline Phosphatase 130 U/L (46-116) Troponin I Quantitative < 0.017 ng/mL (0.000-0.055) Total Protein 9.2 g/dL (6.4-8.2) Albumin 4.4 g/dL (3.4-5.0) Albumin/Globulin Ratio 0.9 (1.0-1.7) Lipase 75 U/L (73-393) Serum Test, Qualitative Negative (NEG) Glucose (Fingerstick) 244 mg/dL (70-99) 162 mg/dL (70-99) 116 mg/dL (70-99) Test 06/01/19 19:44 06/01/19 21:40 06/02/19 00:42 06/02/19 03:19 Glucose (Fingerstick) 120 mg/dL (70-99) 125 mg/dL (70-99) 117 mg/dL (70-99) Urine Collection Type Unknown Urine Color Yellow Urine Clarity Clear Urine pH 6.5 Urine Specific Franklin 1.010 Urine Protein Negative mg/dL (NEG-TRACE) Urine Glucose (UA) Negative mg/dL (NEG) Urine Ketones (Stick) 15 mg/dL (NEG) Urine Blood Negative (NEG) Urine Nitrite Negative (NEG) Urine Bilirubin Negative (NEG) Urine Urobilinogen Dipstick 0.2 mg/dL (0.2 mg/dL) Urine Leukocyte Esterase Trace (NEG) Urine RBC Occ /HPF (0-2) Urine WBC 5-10 /HPF (0-4) Urine Squamous Epithelial Cells Mod /LPF Urine Bacteria Moderate /HPF (0-FEW) Urine Mucus Slight /LPF Urine Opiates Screen Neg (NEG) Urine Methadone Screen Neg (NEG) Urine Barbiturates Neg (NEG) Urine Phencyclidine Screen Neg (NEG) Urine Amphetamine/Methamphetamine Neg (NEG) Urine Benzodiazepines Screen Neg (NEG) Urine Cocaine Screen Neg (NEG) Urine Cannabinoids Screen Pos (NEG) Urine Ethyl Alcohol Neg (NEG) Test 06/02/19 03:20 06/02/19 07:34 White Blood Count 15.9 x10^3/uL (4.0-11.0) Red Blood Count 4.12 x10^6/uL (3.50-5.40) Hemoglobin 12.2 g/dL (12.0-15.5) Hematocrit 37.1 % (36.0-47.0) Mean Corpuscular Volume 90 fL (79-100) Mean Corpuscular Hemoglobin 30 pg (25-35) Mean Corpuscular Hemoglobin Concent 33 g/dL (31-37) Red Cell Distribution Width 14.8 % (11.5-14.5) Platelet Count 303 x10^3/uL (140-400) Neutrophils (%) (Auto) 70 % (31-73) Lymphocytes (%) (Auto) 26 % (24-48) Monocytes (%) (Auto) 4 % (0-9) Eosinophils (%) (Auto) 0 % (0-3) Basophils (%) (Auto) 0 % (0-3) Neutrophils # (Auto) 11.2 x10^3/uL (1.8-7.7) Lymphocytes # (Auto) 4.1 x10^3/uL (1.0-4.8) Monocytes # (Auto) 0.6 x10^3/uL (0.0-1.1) Eosinophils # (Auto) 0.0 x10^3/uL (0.0-0.7) Basophils # (Auto) 0.1 x10^3/uL (0.0-0.2) Sodium Level 138 mmol/L (136-145) Potassium Level 3.1 mmol/L (3.5-5.1) Chloride Level 97 mmol/L (98-107) Carbon Dioxide Level 25 mmol/L (21-32) Anion Gap 16 (6-14) Blood Urea Nitrogen 12 mg/dL (7-20) Creatinine 0.7 mg/dL (0.6-1.0) Estimated GFR (Cockcroft-Gault) 110.5 BUN/Creatinine Ratio 17 (6-20) Glucose Level 148 mg/dL (70-99) Calcium Level 9.1 mg/dL (8.5-10.1) Total Bilirubin 0.8 mg/dL (0.2-1.0) Aspartate Amino Transf (AST/SGOT) 16 U/L (15-37) Alanine Aminotransferase (ALT/SGPT) 21 U/L (14-59) Alkaline Phosphatase 109 U/L (46-116) Total Protein 8.2 g/dL (6.4-8.2) Albumin 3.8 g/dL (3.4-5.0) Albumin/Globulin Ratio 0.9 (1.0-1.7) Glucose (Fingerstick) 172 mg/dL (70-99) Laboratory Tests Test 06/01/19 12:25 06/01/19 17:57 06/01/19 19:44 06/01/19 21:40 Glucose (Fingerstick) 162 mg/dL (70-99) 116 mg/dL (70-99) 120 mg/dL (70-99) 125 mg/dL (70-99) Test 06/02/19 00:42 06/02/19 03:19 06/02/19 03:20 06/02/19 07:34 Glucose (Fingerstick) 117 mg/dL (70-99) 172 mg/dL (70-99) Urine Collection Type Unknown Urine Color Yellow Urine Clarity Clear Urine pH 6.5 Urine Specific Franklin 1.010 Urine Protein Negative mg/dL (NEG-TRACE) Urine Glucose (UA) Negative mg/dL (NEG) Urine Ketones (Stick) 15 mg/dL (NEG) Urine Blood Negative (NEG) Urine Nitrite Negative (NEG) Urine Bilirubin Negative (NEG) Urine Urobilinogen Dipstick 0.2 mg/dL (0.2 mg/dL) Urine Leukocyte Esterase Trace (NEG) Urine RBC Occ /HPF (0-2) Urine WBC 5-10 /HPF (0-4) Urine Squamous Epithelial Cells Mod /LPF Urine Bacteria Moderate /HPF (0-FEW) Urine Mucus Slight /LPF Urine Opiates Screen Neg (NEG) Urine Methadone Screen Neg (NEG) Urine Barbiturates Neg (NEG) Urine Phencyclidine Screen Neg (NEG) Urine Amphetamine/Methamphetamine Neg (NEG) Urine Benzodiazepines Screen Neg (NEG) Urine Cocaine Screen Neg (NEG) Urine Cannabinoids Screen Pos (NEG) Urine Ethyl Alcohol Neg (NEG) White Blood Count 15.9 x10^3/uL (4.0-11.0) Red Blood Count 4.12 x10^6/uL (3.50-5.40) Hemoglobin 12.2 g/dL (12.0-15.5) Hematocrit 37.1 % (36.0-47.0) Mean Corpuscular Volume 90 fL (79-100) Mean Corpuscular Hemoglobin 30 pg (25-35) Mean Corpuscular Hemoglobin Concent 33 g/dL (31-37) Red Cell Distribution Width 14.8 % (11.5-14.5) Platelet Count 303 x10^3/uL (140-400) Neutrophils (%) (Auto) 70 % (31-73) Lymphocytes (%) (Auto) 26 % (24-48) Monocytes (%) (Auto) 4 % (0-9) Eosinophils (%) (Auto) 0 % (0-3) Basophils (%) (Auto) 0 % (0-3) Neutrophils # (Auto) 11.2 x10^3/uL (1.8-7.7) Lymphocytes # (Auto) 4.1 x10^3/uL (1.0-4.8) Monocytes # (Auto) 0.6 x10^3/uL (0.0-1.1) Eosinophils # (Auto) 0.0 x10^3/uL (0.0-0.7) Basophils # (Auto) 0.1 x10^3/uL (0.0-0.2) Sodium Level 138 mmol/L (136-145) Potassium Level 3.1 mmol/L (3.5-5.1) Chloride Level 97 mmol/L (98-107) Carbon Dioxide Level 25 mmol/L (21-32) Anion Gap 16 (6-14) Blood Urea Nitrogen 12 mg/dL (7-20) Creatinine 0.7 mg/dL (0.6-1.0) Estimated GFR (Cockcroft-Gault) 110.5 BUN/Creatinine Ratio 17 (6-20) Glucose Level 148 mg/dL (70-99) Calcium Level 9.1 mg/dL (8.5-10.1) Total Bilirubin 0.8 mg/dL (0.2-1.0) Aspartate Amino Transf (AST/SGOT) 16 U/L (15-37) Alanine Aminotransferase (ALT/SGPT) 21 U/L (14-59) Alkaline Phosphatase 109 U/L (46-116) Total Protein 8.2 g/dL (6.4-8.2) Albumin 3.8 g/dL (3.4-5.0) Albumin/Globulin Ratio 0.9 (1.0-1.7) Medications Current Medications Metoclopramide HCl (Reglan Vial) 10 mg 1X ONCE IV Last administered on 06/01/19at 04:41; Start 06/01/19 at 04:30; Stop 06/01/19 at 04:31; Status DC Ondansetron HCl (Zofran) 4 mg 1X ONCE IV Last administered on 06/01/19at 04:42; Start 06/01/19 at 04:30; Stop 06/01/19 at 04:31; Status DC Sodium Chloride 1,000 ml @ 1,000 mls/hr 1X ONCE IV Last administered on 06/01/19at 04:41; Start 06/01/19 at 04:30; Stop 06/01/19 at 05:29; Status DC Labetalol HCl (Normodyne Iv Push) 20 mg 1X ONCE IVP Last administered on 06/01/19at 05:09; Start 06/01/19 at 05:30; Stop 06/01/19 at 05:31; Status DC Diphenhydramine HCl (Benadryl) 50 mg 1X ONCE IVP Last administered on 06/01/19at 05:08; Start 06/01/19 at 05:30; Stop 06/01/19 at 05:31; Status DC Sodium Chloride 1,000 ml @ 1,000 mls/hr 1X ONCE IV Last administered on 06/01/19at 05:08; Start 06/01/19 at 05:30; Stop 06/01/19 at 06:29; Status DC Insulin Human Regular (HumuLIN R VIAL) 10 unit 1X ONCE IV Last administered on 06/01/19at 05:37; Start 06/01/19 at 05:30; Stop 06/01/19 at 05:31; Status DC Ondansetron HCl (Zofran) 4 mg PRN Q8HRS PRN IV NAUSEA/VOMITING 1ST CHOICE; Start 06/01/19 at 05:15; Stop 06/01/19 at 07:30; Status DC Sodium Chloride 1,000 ml @ 125 mls/hr Q8H IV Last administered on 06/01/19at 23:04; Start 06/01/19 at 05:30; Stop 06/02/19 at 05:29; Status DC Potassium Chloride/Water 100 ml @ 100 mls/hr Q1H IV Last administered on 06/01/19at 06:49; Start 06/01/19 at 06:00; Stop 06/01/19 at 07:59; Status DC Clonidine HCl (Catapres) 0.1 mg 1X ONCE PO Last administered on 06/01/19at 06:38; Start 06/01/19 at 07:00; Stop 06/01/19 at 07:01; Status DC Ondansetron HCl (Zofran) 4 mg PRN Q6HRS PRN IV NAUSEA/VOMITING 1ST CHOICE Last administered on 06/02/19at 06:16; Start 06/01/19 at 07:30 Labetalol HCl (Normodyne Iv Push) 20 mg PRN Q2HR PRN IVP HYPERTENSION Last administered on 06/02/19at 03:46; Start 06/01/19 at 07:30 Acetaminophen (Tylenol) 500 mg PRN Q6HRS PRN PO HEADACHE / TEMP; Start 06/01/19 at 07:30 Acetaminophen/ Codeine Phosphate (Tylenol #3) 1 tab PRN Q6HRS PRN PO MILD PAIN 1-3; Start 06/01/19 at 07:30 Prochlorperazine Edisylate (Compazine) 10 mg PRN Q6HRS PRN IV NAUSEA/VOMITING, 2ND CHOICE Last administered on 06/02/19 10:01; Start 06/01/19 at 07:30 Non-Formulary Medication (Insulin Detemir (Levemir)) 10 unit TID SQ ; Start 06/01/19 at 09:00; Stop 06/01/19 at 09:00; Status DC Insulin Glargine (Lantus) 30 units QHS SQ Last administered on 06/01/19at 23:09; Start 06/01/19 at 21:00 Lisinopril (Prinivil) 5 mg DAILY PO Last administered on 06/01/19at 09:57; Start 06/01/19 at 09:00 Insulin Human Lispro (HumaLOG) 10 units TIDWMEALS SQ Last administered on 06/01/19 13:26; Start 06/01/19 at 08:00 Insulin Human Lispro (HumaLOG) 0-9 UNITS TIDWMEALS SQ Last administered on 06/01/19 10:06; Start 06/01/19 at 08:00 Dextrose (Dextrose 50%-Water Syringe) 12.5 gm PRN Q15MIN PRN IV SEE COMMENTS; Start 06/01/19 at 07:30 Gabapentin (Neurontin) 100 mg TID PO ; Start 06/01/19 at 14:00 Pantoprazole Sodium (PROTONIX VIAL for IV PUSH) 40 mg DAILYAC IVP Last administered on 06/02/19 10:01; Start 06/01/19 at 16:45 Multi-Ingredient Mouthwash/Gargle (Gi Cocktail) 20 ml PRN QID PRN PO CHEST PAIN; Start 06/01/19 at 16:15 Fentanyl Citrate (Fentanyl 2ml Vial) 50 mcg PRN Q2HR PRN IV PAIN Last administered on 06/01/19at 16:27; Start 06/01/19 at 16:15 Diphenhydramine HCl (Benadryl) 25 mg PRN Q6HRS PRN IVP ITCHING Last administered on 06/01/19at 22:25; Start 06/01/19 at 21:30 Acetaminophen (Tylenol Supp) 650 mg PRN Q6HRS PRN GA MILD PAIN / TEMP; Start 06/01/19 at 21:30 Active Scripts Active Metformin Hcl 500 Mg Tablet 500 Mg PO BIDWMEALS 30 Days Lisinopril 5 Mg Tablet 1 Tab PO DAILY Levemir (Insulin Detemir) 100 Unit/1 Ml Vial 30 Unit SQ QHS 30 Days Levemir (Insulin Detemir) 100 Unit/1 Ml Vial 10 Unit SQ TID 30 Days Reported Lisinopril 5 Mg Tablet 1 Tab PO DAILY Vitals/I & O Vital Sign - Last 24 Hours 06/01/19 06/01/19 06/01/19 06/01/19 15:00 16:27 17:00 19:02 Temp 99.2 100.4 99.2 100.4 Pulse 100 105 Resp 12 19 18 18 B/P (MAP) 148/87 (107) 87/49 (62) Pulse Ox 97 100 100 91 O2 Delivery Room Air Room Air Room Air Room Air 06/01/19 06/01/19 06/01/19 06/02/19 20:30 22:50 23:52 03:46 Temp 99.1 99.1 Pulse 109 100 104 Resp 20 B/P (MAP) 208/91 99/55 (70) 211/103 Pulse Ox 94 O2 Delivery Room Air Room Air 06/02/19 06/02/19 03:54 07:25 Temp 99.2 98.5 99.2 98.5 Pulse 104 100 Resp 20 16 B/P (MAP) 211/103 (139) 136/84 (101) Pulse Ox 96 99 O2 Delivery Room Air Room Air Intake and Output 06/01/19 06/01/19 06/02/19 15:00 23:00 07:00 Intake Total 0 ml 100 ml 50 ml Output Total 30 ml 350 ml Balance 0 ml 70 ml -300 ml TIERRA BAUMAN MD Jun 02, 2019 12:14
--- NOTE | 2019-06-02 15:39 | NUR ---
Report called and pt transferred to room 526. Telemetry no longer needed.
--- NOTE | 2019-06-02 16:41 | RAD ---
History: Nausea and vomiting Procedure: The patient ate a standard meal containing 2.1 mCi Tc-99m sulfur colloid. Scintigraphic images of the abdomen were obtained. Regions of interest were drawn around the stomach to generate a gastric emptying time/activity curve. Findings: Time to half emptying for solids is 50 minutes. Impression: Time until half emptying for solids is 50 minutes which is not delayed. Electronically signed by: Martin Heredia MD (06/02/2019 4:38 PM) [facility]
[2019-06-02] MEDS: IV RINGERS,LACTATED 1000ML 1,000 ML IV SCH (20:52)
[2019-06-02] MEDS: POTASSIUM CHLORIDE 10MEQ 100 ML IV SCH ×2 (20:52→23:34)
[2019-06-02] MEDS: INSULIN GLARGINE 300 UNITS/3 ML INSULN.PEN. SQ SCH (21:00)
[2019-06-03] MEDS: ONDANSETRON PF 4 MG/2 ML VIAL. IV PRN (01:03)
[2019-06-03] MEDS: POTASSIUM CHLORIDE 10MEQ 100 ML IV SCH ×2 (01:03→02:30)
[2019-06-03 02:56] VITALS: BP 97/56
[2019-06-03] MEDS: diphenhydrAMINE 50 MG/ML VIAL IVP PRN (03:05)
[2019-06-03] MEDS ORDERED: cefTRIAXone IV Push 1 GM VIAL. IVP SCH (05:00)
[2019-06-03] MEDS ORDERED: DOXYCYCLINE HYCLATE 100 MG TABLET PO SCH (05:00)
[2019-06-03 07:00] VITALS: BP 149/89
[2019-06-03] MEDS ORDERED: PANTOPRAZOLE 40 MG TABLET.DR. PO SCH (07:30)
[2019-06-03] MEDS: INSULIN LISPRO 300 UNITS/3 ML INSULN.PEN. SQ SCH ×4 (07:42→12:00)
[2019-06-03] MEDS: IV RINGERS,LACTATED 1000ML 1,000 ML IV SCH ×2 (08:20→08:32)
[2019-06-03] MEDS: GABAPENTIN 100 MG CAPSULE. PO SCH (08:31)
[2019-06-03 08:32] VITALS: BP 149/89
[2019-06-03] MEDS: LISINOPRIL 5 MG TABLET. PO SCH (08:32)
--- NOTE | 2019-06-03 08:37 | PDOC ---
PROGRESS NOTES Chief Complaint Chief Complaint Nausea and vomiting DM 2 uncontrolled with A1c 11.5 HONK, mild with no coma Hypokalemia secondary to vomiting - corrected Pseudohyponatremia, corrected Reactive leukocytosis- Neuropathy Dysuria - UTI - e. coli History of Present Illness History of Present Illness Slightly better, at least not dry heaving or restless But still nauseated bucket at bedside Negative gastric emptying test She will need scripts once she goes home today for her insulin, states she will use NPH 18 u BID Plan: She will need RX once she gets home D/c with ceftin for UTI dw RN at bedside and pt Vitals Vitals Vital Signs Date Time Temp Pulse Resp B/P (MAP) Pulse Ox O2 Delivery O2 Flow Rate FiO2 06/03/19 07:00 98.0 99 14 149/89 (109) 95 Room Air 98.0 Physical Exam General: Alert, Oriented X3, Cooperative, Other (looks uncomfortable, restless because of dry heaving) Abdomen: Normal bowel sounds, Soft, No tenderness, No hepatosplenomegaly, No masses Extremities: No clubbing, No cyanosis, No edema, Normal pulses, No te nderness/swelling Skin: No rashes, No breakdown, No significant lesion Labs LABS Laboratory Tests Test 06/02/19 12:06 06/02/19 17:51 06/02/19 20:58 06/03/19 05:00 Glucose (Fingerstick) 188 mg/dL (70-99) 258 mg/dL (70-99) 80 mg/dL (70-99) Lactic Acid Level 1.8 mmol/L (0.4-2.0) Test 06/03/19 07:34 Glucose (Fingerstick) 144 mg/dL (70-99) Comment Review of Relevant I have reviewed the following items dary (where applicable) has been applied. Labs Laboratory Tests Test 06/01/19 09:34 06/01/19 12:25 06/01/19 17:57 06/01/19 19:44 Glucose (Fingerstick) 244 mg/dL (70-99) 162 mg/dL (70-99) 116 mg/dL (70-99) 120 mg/dL (70-99) Test 06/01/19 21:40 06/02/19 00:42 06/02/19 03:19 7/23/19 03:20 Glucose (Fingerstick) 125 mg/dL (70-99) 117 mg/dL (70-99) Urine Collection Type Unknown Urine Color Yellow Urine Clarity Clear Urine pH 6.5 Urine Specific Sherman 1.010 Urine Protein Negative mg/dL (NEG-TRACE) Urine Glucose (UA) Negative mg/dL (NEG) Urine Ketones (Stick) 15 mg/dL (NEG) Urine Blood Negative (NEG) Urine Nitrite Negative (NEG) Urine Bilirubin Negative (NEG) Urine Urobilinogen Dipstick 0.2 mg/dL (0.2 mg/dL) Urine Leukocyte Esterase Trace (NEG) Urine RBC Occ /HPF (0-2) Urine WBC 5-10 /HPF (0-4) Urine Squamous Epithelial Cells Mod /LPF Urine Bacteria Moderate /HPF (0-FEW) Urine Mucus Slight /LPF Urine Opiates Screen Neg (NEG) Urine Methadone Screen Neg (NEG) Urine Barbiturates Neg (NEG) Urine Phencyclidine Screen Neg (NEG) Urine Amphetamine/Methamphetamine Neg (NEG) Urine Benzodiazepines Screen Neg (NEG) Urine Cocaine Screen Neg (NEG) Urine Cannabinoids Screen Pos (NEG) Urine Ethyl Alcohol Neg (NEG) White Blood Count 15.9 x10^3/uL (4.0-11.0) Red Blood Count 4.12 x10^6/uL (3.50-5.40) Hemoglobin 12.2 g/dL (12.0-15.5) Hematocrit 37.1 % (36.0-47.0) Mean Corpuscular Volume 90 fL (79-100) Mean Corpuscular Hemoglobin 30 pg (25-35) Mean Corpuscular Hemoglobin Concent 33 g/dL (31-37) Red Cell Distribution Width 14.8 % (11.5-14.5) Platelet Count 303 x10^3/uL (140-400) Neutrophils (%) (Auto) 70 % (31-73) Lymphocytes (%) (Auto) 26 % (24-48) Monocytes (%) (Auto) 4 % (0-9) Eosinophils (%) (Auto) 0 % (0-3) Basophils (%) (Auto) 0 % (0-3) Neutrophils # (Auto) 11.2 x10^3/uL (1.8-7.7) Lymphocytes # (Auto) 4.1 x10^3/uL (1.0-4.8) Monocytes # (Auto) 0.6 x10^3/uL (0.0-1.1) Eosinophils # (Auto) 0.0 x10^3/uL (0.0-0.7) Basophils # (Auto) 0.1 x10^3/uL (0.0-0.2) Sodium Level 138 mmol/L (136-145) Potassium Level 3.1 mmol/L (3.5-5.1) Chloride Level 97 mmol/L (98-107) Carbon Dioxide Level 25 mmol/L (21-32) Anion Gap 16 (6-14) Blood Urea Nitrogen 12 mg/dL (7-20) Creatinine 0.7 mg/dL (0.6-1.0) Estimated GFR (Cockcroft-Gault) 110.5 BUN/Creatinine Ratio 17 (6-20) Glucose Level 148 mg/dL (70-99) Calcium Level 9.1 mg/dL (8.5-10.1) Total Bilirubin 0.8 mg/dL (0.2-1.0) Aspartate Amino Transf (AST/SGOT) 16 U/L (15-37) Alanine Aminotransferase (ALT/SGPT) 21 U/L (14-59) Alkaline Phosphatase 109 U/L (46-116) Total Protein 8.2 g/dL (6.4-8.2) Albumin 3.8 g/dL (3.4-5.0) Albumin/Globulin Ratio 0.9 (1.0-1.7) Test 06/02/19 07:34 06/02/19 12:06 06/02/19 17:51 06/02/19 20:58 Glucose (Fingerstick) 172 mg/dL (70-99) 188 mg/dL (70-99) 258 mg/dL (70-99) 80 mg/dL (70-99) Test 06/03/19 05:00 06/03/19 07:34 Lactic Acid Level 1.8 mmol/L (0.4-2.0) Glucose (Fingerstick) 144 mg/dL (70-99) Laboratory Tests Test 06/02/19 12:06 06/02/19 17:51 06/02/19 20:58 06/03/19 05:00 Glucose (Fingerstick) 188 mg/dL (70-99) 258 mg/dL (70-99) 80 mg/dL (70-99) Lactic Acid Level 1.8 mmol/L (0.4-2.0) Test 06/03/19 07:34 Glucose (Fingerstick) 144 mg/dL (70-99) Medications Current Medications Metoclopramide HCl (Reglan Vial) 10 mg 1X ONCE IV Last administered on 06/01/19at 04:41; Start 06/01/19 at 04:30; Stop 06/01/19 at 04:31; Status DC Ondansetron HCl (Zofran) 4 mg 1X ONCE IV Last administered on 06/01/19at 04:42; Start 06/01/19 at 04:30; Stop 06/01/19 at 04:31; Status DC Sodium Chloride 1,000 ml @ 1,000 mls/hr 1X ONCE IV Last administered on 06/01/19at 04:41; Start 06/01/19 at 04:30; Stop 06/01/19 at 05:29; Status DC Labetalol HCl (Normodyne Iv Push) 20 mg 1X ONCE IVP Last administered on 06/01/19at 05:09; Start 06/01/19 at 05:30; Stop 06/01/19 at 05:31; Status DC Diphenhydramine HCl (Benadryl) 50 mg 1X ONCE IVP Last administered on 06/01/19at 05:08; Start 06/01/19 at 05:30; Stop 06/01/19 at 05:31; Status DC Sodium Chloride 1,000 ml @ 1,000 mls/hr 1X ONCE IV Last administered on 06/01/19at 05:08; Start 06/01/19 at 05:30; Stop 06/01/19 at 06:29; Status DC Insulin Human Regular (HumuLIN R VIAL) 10 unit 1X ONCE IV Last administered on 06/01/19at 05:37; Start 06/01/19 at 05:30; Stop 06/01/19 at 05:31; Status DC Ondansetron HCl (Zofran) 4 mg PRN Q8HRS PRN IV NAUSEA/VOMITING 1ST CHOICE; Start 06/01/19 at 05:15; Stop 06/01/19 at 07:30; Status DC Sodium Chloride 1,000 ml @ 125 mls/hr Q8H IV Last administered on 06/01/19 23:04; Start 06/01/19 at 05:30; Stop 06/02/19 at 05:29; Status DC Potassium Chloride/Water 100 ml @ 100 mls/hr Q1H IV Last administered on 06/01/19 06:49; Start 06/01/19 at 06:00; Stop 06/01/19 at 07:59; Status DC Clonidine HCl (Catapres) 0.1 mg 1X ONCE PO Last administered on 06/01/19 06:38; Start 06/01/19 at 07:00; Stop 06/01/19 at 07:01; Status DC Ondansetron HCl (Zofran) 4 mg PRN Q6HRS PRN IV NAUSEA/VOMITING 1ST CHOICE Last administered on 06/03/19 01:03; Start 06/01/19 at 07:30 Labetalol HCl (Normodyne Iv Push) 20 mg PRN Q2HR PRN IVP HYPERTENSION Last administered on 06/02/19 03:46; Start 06/01/19 at 07:30 Acetaminophen (Tylenol) 500 mg PRN Q6HRS PRN PO HEADACHE / TEMP; Start 06/01/19 at 07:30 Acetaminophen/ Codeine Phosphate (Tylenol #3) 1 tab PRN Q6HRS PRN PO MILD PAIN 1-3; Start 06/01/19 at 07:30 Prochlorperazine Edisylate (Compazine) 10 mg PRN Q6HRS PRN IV NAUSEA/VOMITING, 2ND CHOICE Last administered on 06/02/19 18:14; Start 06/01/19 at 07:30 Non-Formulary Medication (Insulin Detemir (Levemir)) 10 unit TID SQ ; Start 06/01/19 at 09:00; Stop 06/01/19 at 09:00; Status DC Insulin Glargine (Lantus) 30 units QHS SQ Last administered on 06/01/19at 23:09; Start 06/01/19 at 21:00 Lisinopril (Prinivil) 5 mg DAILY PO Last administered on 06/01/19 09:57; Start 06/01/19 at 09:00 Insulin Human Lispro (HumaLOG) 10 units TIDWMEALS SQ Last administered on 06/02/19 17:56; Start 06/01/19 at 08:00 Insulin Human Lispro (HumaLOG) 0-9 UNITS TIDWMEALS SQ Last administered on 06/02/19 17:55; Start 06/01/19 at 08:00 Dextrose (Dextrose 50%-Water Syringe) 12.5 gm PRN Q15MIN PRN IV SEE COMMENTS; Start 06/01/19 at 07:30 Gabapentin (Neurontin) 100 mg TID PO Last administered on 06/02/19 20:51; Start 06/01/19 at 14:00 Pantoprazole Sodium (PROTONIX VIAL for IV PUSH) 40 mg DAILYAC IVP Last administered on 06/02/19 10:01; Start 06/01/19 at 16:45; Stop 06/02/19 at 12:11; Status DC Multi-Ingredient Mouthwash/Gargle (Gi Cocktail) 20 ml PRN QID PRN PO CHEST PAIN; Start 06/01/19 at 16:15 Fentanyl Citrate (Fentanyl 2ml Vial) 50 mcg PRN Q2HR PRN IV PAIN Last administered on 06/01/19 16:27; Start 06/01/19 at 16:15 Diphenhydramine HCl (Benadryl) 25 mg PRN Q6HRS PRN IVP ITCHING Last administered on 06/03/19 03:05; Start 06/01/19 at 21:30 Acetaminophen (Tylenol Supp) 650 mg PRN Q6HRS PRN [place] MILD PAIN / TEMP; Start 06/01/19 at 21:30 Pantoprazole Sodium (Protonix) 40 mg DAILYAC PO ; Start 06/03/19 at 07:30 Ringer's Solution 1,000 ml @ 75 mls/hr [id number] IV Last administered on 06/02/19 20:52; Start 06/02/19 at 19:00 Potassium Chloride/Water 100 ml @ 100 mls/hr Q1H IV Last administered on 06/03/19 02:30; Start 06/02/19 at 19:00; Stop 06/02/19 at 22:59; Status DC Ceftriaxone Sodium (Rocephin) 1 gm Q24H IVP Last administered on 06/03/19 05:18; Start 06/03/19 at 05:00 Doxycycline Hyclate (Vibra-Tab) 100 mg BID PO Last administered on 06/03/19at 05:18; Start 06/03/19 at 05:00 Active Scripts Active Metformin Hcl 500 Mg Tablet 500 Mg PO BIDWMEALS 30 Days Lisinopril 5 Mg Tablet 1 Tab PO DAILY Levemir (Insulin Detemir) 100 Unit/1 Ml Vial 30 Unit SQ QHS 30 Days Levemir (Insulin Detemir) 100 Unit/1 Ml Vial 10 Unit SQ TID 30 Days Reported Lisinopril 5 Mg Tablet 1 Tab PO DAILY Vitals/I & O Vital Sign - Last 24 Hours 06/02/19 06/02/19 06/02/19 06/02/19 11:45 15:20 15:45 16:30 Temp 99.7 98.4 98.2 99.7 98.4 98.2 Pulse 112 107 100 Resp 16 18 16 B/P (MAP) 216/120 (152) 116/71 (86) 125/98 (107) Pulse Ox 96 96 98 O2 Delivery Room Air Room Air Room Air Room Air 06/02/19 06/02/19 06/02/19 06/03/19 19:00 20:00 23:00 02:56 Temp 98.9 98.5 98.4 98.9 98.5 98.4 Pulse 101 87 103 Resp 18 18 18 B/P (MAP) 121/81 (94) 74/41 (52) 97/56 (70) Pulse Ox 97 94 95 O2 Delivery Room Air Room Air Room Air Room Air 06/03/19 07:00 Temp 98.0 98.0 Pulse 99 Resp 14 B/P (MAP) 149/89 (109) Pulse Ox 95 O2 Delivery Room Air Intake and Output 06/02/19 06/02/19 06/03/19 14:59 22:59 06:59 Intake Total 240 ml Balance 240 ml DARSHAN YAÑEZ MD Jun 03, 2019 08:37
[2019-06-03 11:08] LABS: BASO # 0.1 x10^3/uL (0.0-0.2); BASO % 1 % (0-3); EOS # 0.1 x10^3/uL (0.0-0.7); EOS % 1 % (0-3); HEMATOCRIT 38.1 % (36.0-47.0); HEMOGLOBIN 12.6 g/dL (12.0-15.5); LYMPH # 5.9 x10^3/uL (1.0-4.8); LYMPH % 44 % (24-48); MEAN CORPUSCULAR HEMOGLOBIN 30 pg (25-35); MEAN CORPUSCULAR HGB CONC 33 g/dL (31-37); MEAN CORPUSCULAR VOLUME 90 fL (79-100); MONO # 0.7 x10^3/uL (0.0-1.1); MONO % 5 % (0-9); NEUT # 6.5 x10^3/uL (1.8-7.7); NEUT % 49 % (31-73); PLATELET COUNT 325 x10^3/uL (140-400); RED BLOOD COUNT 4.24 x10^6/uL (3.50-5.40); RED CELL DISTRIBUTION WIDTH 15.1 % (11.5-14.5); WHITE BLOOD COUNT 13.4 x10^3/uL (4.0-11.0)
[2019-06-03] MEDS ORDERED: PANT40TA77 PO (11:10)
[2019-06-03] MEDS ORDERED: DOXY100C14 PO (11:10)
[2019-06-03] MEDS ORDERED: METF500T16 PO (11:10)
[2019-06-03] MEDS ORDERED: INSU100V13 SQ (11:10)
[2019-06-03 11:16] LABS: CALCIUM 9.6 mg/dL (8.5-10.1); CREATININE 1.7 mg/dL (0.6-1.0); GFR 39.7; POTASSIUM 3.3 mmol/L (3.5-5.1)
[2019-06-03] MEDS ORDERED: POTASSIUM CHLORIDE 20 MEQ TABLET.ER. PO ONE (12:00)
--- NOTE | 2019-06-03 12:26 | NUR ---
SS following for discharge planning. Pt is self pay pt. HCFS following for self pay status. Pt is from home and is currently on room air. No discharge needs noted at this time. Discharge order on the chart.
--- NOTE | 2019-06-03 12:27 | NUR ---
Discharge Note: NIKKI CAMPA5 [place] Discharge instructions and discharge home medications reviewed with Patient and a copy given. All questions have been answered and understanding verbalized. The following instructions and handouts were given: discharge instructions, new prescriptions, education and follow up recommendations. Discontinued lines and drains: Peripheral IV discontinued intact. Patient discharged to Home or Self Care with Family Member via Wheelchair off unit by RN
--- NOTE | 2019-06-04 16:46 | PDOC3 ---
Discharge Summary Visit Information Date of Admission: Jun 02, 2019 Date of Discharge: Jun 03, 2019 Admitting Diagnosis: Nausea and vomiting Final Diagnosis Nausea and vomiting Brief Hospital Course Allergies Allergies Coded Allergies Type Severity Reaction Last Updated Verified No Known Drug Allergies 12/27/17 No Vital Signs Vital Signs Date Time Temp Pulse Resp B/P (MAP) Pulse Ox O2 Delivery O2 Flow Rate FiO2 06/03/19 08:32 99 149/89 06/03/19 08:30 Room Air 06/03/19 07:00 98.0 14 95 98.0 Lab Results Laboratory Tests Test 06/02/19 17:51 06/02/19 20:58 06/03/19 05:00 06/03/19 07:34 Glucose (Fingerstick) 258 mg/dL (70-99) 80 mg/dL (70-99) 144 mg/dL (70-99) Lactic Acid Level 1.8 mmol/L (0.4-2.0) Test 06/03/19 10:33 06/03/19 11:02 White Blood Count 13.4 x10^3/uL (4.0-11.0) Red Blood Count 4.24 x10^6/uL (3.50-5.40) Hemoglobin 12.6 g/dL (12.0-15.5) Hematocrit 38.1 % (36.0-47.0) Mean Corpuscular Volume 90 fL (79-100) Mean Corpuscular Hemoglobin 30 pg (25-35) Mean Corpuscular Hemoglobin Concent 33 g/dL (31-37) Red Cell Distribution Width 15.1 % (11.5-14.5) Platelet Count 325 x10^3/uL (140-400) Neutrophils (%) (Auto) 49 % (31-73) Lymphocytes (%) (Auto) 44 % (24-48) Monocytes (%) (Auto) 5 % (0-9) Eosinophils (%) (Auto) 1 % (0-3) Basophils (%) (Auto) 1 % (0-3) Neutrophils # (Auto) 6.5 x10^3/uL (1.8-7.7) Lymphocytes # (Auto) 5.9 x10^3/uL (1.0-4.8) Monocytes # (Auto) 0.7 x10^3/uL (0.0-1.1) Eosinophils # (Auto) 0.1 x10^3/uL (0.0-0.7) Basophils # (Auto) 0.1 x10^3/uL (0.0-0.2) Sodium Level 137 mmol/L (136-145) Potassium Level 3.3 mmol/L (3.5-5.1) Chloride Level 98 mmol/L (98-107) Carbon Dioxide Level 29 mmol/L (21-32) Anion Gap 10 (6-14) Blood Urea Nitrogen 21 mg/dL (7-20) Creatinine 1.7 mg/dL (0.6-1.0) Estimated GFR (Cockcroft-Gault) 39.7 Glucose Level 160 mg/dL (70-99) Calcium Level 9.6 mg/dL (8.5-10.1) Glucose (Fingerstick) 155 mg/dL (70-99) Brief Hospital Course 43-year-old -[place] female, obese with a BMI 34, known diabetes type 2 on Levemir 25 daily at bedtime and she cannot recall her short-acting insulin, self-pay, hence has been off meds with unknown A1c. Vomited 5 times at the ER. S till vomiting dry heaving and restless. Blood sugar was 400s on admission. No gap. Still dry heaving and has never had a formal gastric emptying test or gastroparesis diagnosis. She has been having this problem for years. Also mentions to me what sounds like sxs of neuropathy - not on any meds We will back down to nothing by mouth, continue normal saline, increase rate to 125 mL an hour, get gastric emptying test Started gabapentin, start a second agent antinausea meds Blood pressure on the high side but currently dry heaving I have added when necessary's Hypokalemic 3.3 and GOT K replacement 20 IV total through the ER Mild pseudohyponatremia 135 with reactive leukocytosis 15 Slightly better, at least not dry heaving or restless But still nauseated bucket at bedside Negative gastric emptying test She will need scripts once she goes home today for her insulin, states she will use NPH 18 u BID Plan: She will need RX once she gets home D/c with ceftin for UTI dw RN at bedside and pt Greater than 30 minutes spent on discharge Discharge Information Condition at Discharge: Improved Follow Up: Weeks Disposition/Orders: D/C to Home Scheduled Doxycycline Monohydrate (Doxycycline Monohydrate) 100 Mg Capsule, 1 CAP PO BID for Infection for 7 Days, #14 Prescribed by: DARSHAN YAÑEZ MD on 06/03/190 Insulin Detemir (Levemir) 100 Unit/1 Ml Vial, 30 UNIT SQ QHS for 30 Days Prescribed by: TIERRA BAUMAN on 12/29/171154 Last Action: Converted on 06/01/19728 by TIERRA BAUMAN Insulin Detemir (Levemir) 100 Unit/1 Ml Vial, 18 UNIT SQ BID for dm2 for 30 Days, #1 Ref 2 Prescribed by: DARSHAN YAÑEZ MD on 06/03/190 Lisinopril (Lisinopril) 5 Mg Tablet, 1 TAB PO DAILY, #30 Ref 5 Prescribed by: TIERRA BAUMAN on 12/29/171154 Last Action: Converted on 06/01/19728 by TIERRA BAUMNA Metformin Hcl (Metformin Hcl) 500 Mg Tablet, 500 MG PO BIDWMEALS for ANTI- DIABETIC for 30 Days, #60 Ref 0 Prescribed by: DARSHAN YAÑEZ MD on 06/03/19 111 Pantoprazole Sodium (Pantoprazole Sodium ) 40 Mg Tablet.dr, 40 MG PO DAILYAC for GERD for 30 Days, #30 Prescribed by: DARSHAN YAÑEZ MD on 06/03/19 1110 Discontinued Medications Lisinopril (Lisinopril) 5 Mg Tablet, 1 TAB PO DAILY, #30 Ref 5 (Reported) Entered as Reported by: JANETTE ACOSTA on 12/27/17601 Last Action: HELD on 06/01/19728 by DARSHAN WHITE MD Jun 04, 2019 16:46
== END 2019-06-03 12:28 | disposition home or self-care (01) | DRG 638 ==
LOC: ER 03:44 → 6 SOUTH 05:00 → 5 NORTH 06-02 15:56
PROVIDERS: ADMIT Internal Medicine; ATTEND Internal Medicine
DX: E11.00 Type 2 diabetes mellitus with hyperosmolarity without nonketotic hyperglycemic-hyperosmolar coma (NKHHC) (principal); N39.0 Urinary tract infection, site not specified; E11.43 Type 2 diabetes mellitus with diabetic autonomic (poly)neuropathy; K31.84 Gastroparesis; I10 Essential (primary) hypertension; E78.5 Hyperlipidemia, unspecified; K21.9 Gastro-esophageal reflux disease without esophagitis; M19.90 Unspecified osteoarthritis, unspecified site; E11.65 Type 2 diabetes mellitus with hyperglycemia; E87.6 Hypokalemia; D72.828 Other elevated white blood cell count; B96.20 Unspecified Escherichia coli [E. coli] as the cause of diseases classified elsewhere; E66.9 Obesity, unspecified; F12.90 Cannabis use, unspecified, uncomplicated; Z82.49 Family history of ischemic heart disease and other diseases of the circulatory system; Z82.3 Family history of stroke; Z79.4 Long term (current) use of insulin; Z98.891 History of uterine scar from previous surgery
CPT/HCPCS: 36415; 71045; 74176; 78264; 80048; 80053; 80307; 81001; 82962; 83036; 83605; 83690; 84484; 84703; 85025; 87040; 87086; 93005; 96361; 96365; 96375; A9541; C9113; J0696; J0780; J1200; J1815; J2405; J2765; J3010; J3480; J3490; J7030; J7120; 99285-25

== ENCOUNTER 2019-10-03 18:15 | Emergency (ER) | payer OTHER ==
[~2019-10-03 18:15] MED LIST changes: +DOXY100C14 PO; +PANT40TA77 PO
== END 2019-10-03 18:28 | disposition left against medical advice (07) ==
LOC: ER 18:15
DX: R07.89 Other chest pain (principal); F41.0 Panic disorder [episodic paroxysmal anxiety]; Z53.21 Procedure and treatment not carried out due to patient leaving prior to being seen by health care provider

== ENCOUNTER 2019-10-19 12:34 | Inpatient (IN) | payer OTHER ==
[~2019-10-19] VITALS: Ht 165.1 cm; Wt 90.7 kg
[2019-10-19] MEDS ORDERED: ONDANSETRON PF 4 MG/2 ML VIAL. ONE (12:48)
[2019-10-19] MEDS ORDERED: IV NORMAL SALINE 1000ML BAG 1,000 ML IV SCH (12:49)
[2019-10-19 13:16] LABS: BILIRUBIN,URINE NEGATIVE (NEG); CLARITY,URINE CLEAR; COLOR,URINE YELLOW; NITRITE,URINE NEGATIVE (NEG); PH,URINE 5.5; PROTEIN,URINE 30 mg/dL (NEG-TRACE); UROBILINOGEN,URINE 0.2 mg/dL (0.2 mg/dL)
[2019-10-19 13:22] LABS: BARBITURATES NEG (NEG); BENZODIAZEPINES NEG (NEG); CANNABINOIDS POS (NEG); COCAINE NEG (NEG); METHADONE NEG (NEG); OPIATES NEG (NEG); PHENCYCLIDINE NEG (NEG)
[2019-10-19 13:24] LABS: AMPHETAMINE/METHAMPHETAMINE NEG (NEG)
[2019-10-19 13:28] LABS: HYALINE CASTS, URINE MODERATE /HPF; SQUAMOUS EPITHELIAL CELL,UR MOD /LPF
[2019-10-19 13:29] LABS: BACTERIA,URINE FEW /HPF (0-FEW); RBC,URINE 20-40 /HPF (0-2); TRICHOMONAS,URINE PRESENT
[2019-10-19] MEDS ORDERED: ONDANSETRON PF 4 MG/2 ML VIAL. IV ONE (13:30)
[2019-10-19 13:31] LABS: GASTRIC OB PAT POSITIVE (NEG)
--- NOTE | 2019-10-19 13:45 | RAD ---
Examination: ABDOMEN LTD History: Nausea and vomiting. Abdominal pain for 2 weeks. Comparison/Correlation: 06/01/2019 CT abdomen and pelvis without contrast Findings: Limited right upper quadrant ultrasound was performed. Mild fatty infiltration of the liver is present. Gallbladder is unremarkable with no cholelithiasis or findings of cholecystitis. Common bile duct is unremarkable. Portal venous flow is normal. No biliary dilatation. Proximal pancreas is normal. Distal pancreas is obscured by bowel gas. Right kidney measures 10 cm longitudinally. No right hydronephrosis. Normal right renal contour and echotexture. Inferior vena cava is unremarkable. No right upper quadrant ascites. Impression: Mild fatty infiltration of the liver. Electronically signed by: Tacos Ortiz MD (10/19/2019 1:42 PM) [facility]
[2019-10-19 14:05] LABS: BASO % 0 % (0-3); EOS % 0 % (0-3); HEMOGLOBIN 12.4 g/dL (12.0-15.5); LYMPH # 2.7 x10^3/uL (1.0-4.8); LYMPH % 17 % (24-48); MEAN CORPUSCULAR HEMOGLOBIN 29 pg (25-35); MEAN CORPUSCULAR HGB CONC 33 g/dL (31-37); MEAN CORPUSCULAR VOLUME 90 fL (79-100); MONO # 0.3 x10^3/uL (0.0-1.1); MONO % 2 % (0-9); NEUT # 12.9 x10^3/uL (1.8-7.7); NEUT % 81 % (31-73); PLATELET COUNT 334 x10^3/uL (140-400); RED BLOOD COUNT 4.23 x10^6/uL (3.50-5.40); RED CELL DISTRIBUTION WIDTH 13.9 % (11.5-14.5)
[2019-10-19 14:13] LABS: PROTHROMBIN TIME PATIENT 12.6 SEC (11.7-14.0)
[2019-10-19 14:14] LABS: CALCIUM 10.1 mg/dL (8.5-10.1); CREATININE 0.9 mg/dL (0.6-1.0); GFR 82.7; POTASSIUM 3.8 mmol/L (3.5-5.1)
[2019-10-19 14:28] LABS: ALBUMIN 4.4 g/dL (3.4-5.0); MAGNESIUM 2.1 mg/dL (1.8-2.4); TOTAL BILIRUBIN 0.7 mg/dL (0.2-1.0); TOTAL PROTEIN 8.8 g/dL (6.4-8.2)
[2019-10-19] MEDS ORDERED: INSULIN REGULAR 100 UNIT/ML 3ML VIAL. IV ONE (14:30)
[2019-10-19] MEDS ORDERED: IV NORMAL SALINE 1000ML BAG 1,000 ML IV ONE (14:30)
[2019-10-19 14:55] LABS: BASE EXCESS ABG -2 mmol/L (-3-3); HCO3 ABG 21 mmol/L (21-28); PCO2 ABG 32 mmHg (35-46); PO2 ABG 92 mmHg (75-108); SAT O2 ABG 97 % (92-99)
[2019-10-19 14:57] LABS: FIO2 ABG 21
[2019-10-19] MEDS ORDERED: PANTOPRAZOLE IV PUSH 40 MG VIAL. IVP ONE (15:15)
[2019-10-19 15:29] LABS: % BANDS 1 % (0-9); % LYMPHS 16 % (24-48); % MONOS 2 % (0-10); % SEGS 81 % (35-66)
[2019-10-19 15:30] LABS: PLT ESTIMATE ADEQUATE (ADEQUATE)
--- NOTE | 2019-10-19 15:31 | PHYS DOC ---
Past Medical History Past Medical History: Diabetes-Type II, High Cholesterol, Hypertension Past Surgical History: Additional Past Surgical Histo: LEFT TOE AMPUTATION Alcohol Use: None Drug Use: Marijuana Adult General Chief Complaint Chief Complaint: NAUSEA/VOMITING/DIARRHA HPI HPI Patient is a 43 year old female with history of hypertension, dyslipidemia, diabetes mellitus who presents with complaining of nausea and vomiting. Patient complaining of 5-6 episodes of vomiting today with constant nausea for the last 2 weeks without abdominal pain, urinary symptoms, chills, chest pain, shortness of breath and constipation. Patient complaining of few episode of diarrhea yesterday. Patient admits to use marijuana and denies history of the same problem previously. Review of Systems Review of Systems Constitutional: Denies fever or chills [] Eyes: Denies change in visual acuity, redness, or eye pain [] HENT: Denies nasal congestion or sore throat [] Respiratory: Denies cough or shortness of breath [] Cardiovascular: No additional information not addressed in HPI [] GI: Denies abdominal pain, bloody stools or diarrhea, reports nausea and vomiting [] : Denies dysuria or hematuria [] Musculoskeletal: Denies back pain or joint pain [] Integument: Denies rash or skin lesions [] Neurologic: Denies headache, focal weakness or sensory changes [] Endocrine: Denies polyuria or polydipsia [] All other systems were reviewed and found to be within normal limits, except as documented in this note. Current Medications Current Medications Current Medications Medications (Trade) Dose Ordered Sig/Tina Start Time Stop Time Status Last Admin Dose Admin Insulin Human Regular (HumuLIN R VIAL) 10 unit 1X ONCE 10/19/19 14:30 10/19/19 14:31 DC Lorazepam (Ativan Inj) 1 mg 1X ONCE 10/19/19 13:30 10/19/19 13:31 DC Ondansetron HCl (Zofran) 4 mg 1X ONCE 10/19/19 13:30 10/19/19 13:31 DC 10/19/19 13:46 4 MG Pantoprazole Sodium (PROTONIX VIAL for IV PUSH) 40 mg 1X ONCE 10/19/19 15:15 10/19/19 15:16 Sodium Chloride 1,000 ml @ 1,000 mls/hr 1X ONCE 10/19/19 14:30 10/19/19 15:29 Allergies Allergies Allergies Coded Allergies Type Severity Reaction Last Updated Verified No Known Drug Allergies 12/27/17 No Physical Exam Physical Exam Constitutional: Well developed, well nourished, moderate distress, non-toxic appearance. [] HENT: Normocephalic, atraumatic, bilateral external ears normal, oropharynx dry, no oral exudates, nose normal. [] Eyes: PERRLA, EOMI, conjunctiva normal, no discharge. [] Neck: Normal range of motion, no tenderness, supple, no stridor. [] Cardiovascular: Tachycardia, no murmur [] Lungs & Thorax: Bilateral breath sounds clear to auscultation [] Abdomen: Bowel sounds normal, soft, no tenderness, no masses, no pulsatile ma sses. [] Skin: Warm, dry, no erythema, no rash. [] Back: No tenderness, no CVA tenderness. [] Extremities: No tenderness, no cyanosis, no clubbing, ROM intact, no edema. [] Neurologic: Alert and oriented X 3, normal motor function, normal sensory function, no focal deficits noted. [] Psychologic: Affect anxious, judgement normal, mood normal. [] Current Patient Data Vital Signs Vital Signs Date Time Temp Pulse Resp B/P (MAP) Pulse Ox O2 Delivery O2 Flow Rate FiO2 10/19/19 12:39 98.3 131 22 183/129 (147) 96 Room Air 98.3 Lab Values Laboratory Tests Test 10/19/19 12:47 10/19/19 13:00 10/19/19 14:00 10/19/19 14:45 POC Urine HCG, Qualitative Hcg negative (Negative) Urine Collection Type Unknown Urine Color Yellow Urine Clarity Clear Urine pH 5.5 Urine Specific [place] >=1.030 Urine Protein 30 mg/dL (NEG-TRACE) Urine Glucose (UA) >=1000 mg/dL (NEG) Urine Ketones (Stick) 40 mg/dL (NEG) Urine Blood Large (NEG) Urine Nitrite Negative (NEG) Urine Bilirubin Negative (NEG) Urine Urobilinogen Dipstick 0.2 mg/dL (0.2 mg/dL) Urine Leukocyte Esterase Negative (NEG) Urine RBC 20-40 /HPF (0-2) Urine WBC 1-4 /HPF (0-4) Urine Squamous Epithelial Cells Mod /LPF Urine Bacteria Few /HPF (0-FEW) Urine Hyaline Casts Moderate /HPF Urine Mucus Slight /LPF Urine Trichomonas Present Gastric Fluid Occult Blood Positive (NEG) Urine Opiates Screen Neg (NEG) Urine Methadone Screen Neg (NEG) Urine Barbiturates Neg (NEG) Urine Phencyclidine Screen Neg (NEG) Urine Amphetamine/Methamphetamine Neg (NEG) Urine Benzodiazepines Screen Neg (NEG) Urine Cocaine Screen Neg (NEG) Urine Cannabinoids Screen Pos (NEG) Urine Ethyl Alcohol Neg (NEG) White Blood Count 16.0 x10^3/uL (4.0-11.0) H Red Blood Count 4.23 x10^6/uL (3.50-5.40) Hemoglobin 12.4 g/dL (12.0-15.5) Hematocrit 38.0 % (36.0-47.0) Mean Corpuscular Volume 90 fL (79-100) Mean Corpuscular Hemoglobin 29 pg (25-35) Mean Corpuscular Hemoglobin Concent 33 g/dL (31-37) Red Cell Distribution Width 13.9 % (11.5-14.5) Platelet Count 334 x10^3/uL (140-400) Neutrophils (%) (Auto) 81 % (31-73) H Lymphocytes (%) (Auto) 17 % (24-48) L Monocytes (%) (Auto) 2 % (0-9) Eosinophils (%) (Auto) 0 % (0-3) Basophils (%) (Auto) 0 % (0-3) Neutrophils # (Auto) 12.9 x10^3/uL (1.8-7.7) H Lymphocytes # (Auto) 2.7 x10^3/uL (1.0-4.8) Monocytes # (Auto) 0.3 x10^3/uL (0.0-1.1) Eosinophils # (Auto) 0.0 x10^3/uL (0.0-0.7) Basophils # (Auto) 0.0 x10^3/uL (0.0-0.2) Platelet Estimate Pending Prothrombin Time 12.6 SEC (11.7-14.0) Prothrombin Time INR 1.0 (0.8-1.1) Sodium Level 133 mmol/L (136-145) L Potassium Level 3.8 mmol/L (3.5-5.1) Chloride Level 91 mmol/L (98-107) L Carbon Dioxide Level 22 mmol/L (21-32) Anion Gap 20 (6-14) H Blood Urea Nitrogen 11 mg/dL (7-20) Creatinine 0.9 mg/dL (0.6-1.0) Estimated GFR (Cockcroft-Gault) 82.7 BUN/Creatinine Ratio 12 (6-20) Glucose Level 473 mg/dL (70-99) H Lactic Acid Level 1.7 mmol/L (0.4-2.0) Calcium Level 10.1 mg/dL (8.5-10.1) Magnesium Level 2.1 mg/dL (1.8-2.4) Total Bilirubin 0.7 mg/dL (0.2-1.0) Aspartate Amino Transferase (AST) 14 U/L (15-37) L Alanine Aminotransferase (ALT) 20 U/L (14-59) Alkaline Phosphatase 145 U/L (46-116) H Total Protein 8.8 g/dL (6.4-8.2) H Albumin 4.4 g/dL (3.4-5.0) Albumin/Globulin Ratio 1.0 (1.0-1.7) Lipase 74 U/L (73-393) Acetone Level Sm pos (NEG) O2 Saturation 97 % (92-99) Arterial Blood pH 7.44 (7.35-7.45) Arterial Blood pCO2 at Patient Temp 32 mmHg (35-46) L Arterial Blood pO2 at Patient Temp 92 mmHg (75-108) Arterial Blood HCO3 21 mmol/L (21-28) Arterial Blood Base Excess -2 mmol/L (-3-3) FiO2 21 Laboratory Tests 10/19/19 14:00 Laboratory Tests 10/19/19 14:00 EKG EKG [] Radiology/Procedures Radiology/Procedures [][facility] [address] [place] [address] IMAGING REPORT Signed PATIENT: NIKKI CAMPA JACCOUNT: [id number] : 1975 LOCATION: ER AGE: 43 SEX: F EXAM STATUS: REG ER ORD. PHYSICIAN: ALIZA BROWN MD REASON: nausea and vomiting and abdominal pain for 2 weeks PROCEDURE: ABDOMEN LTD Examination: ABDOMEN LTD History: Nausea and vomiting. Abdominal pain for 2 weeks. Comparison/Correlation: 06/01/2019 CT abdomen and pelvis without contrast Findings: Limited right upper quadrant ultrasound was performed. Mild fatty infiltration of the liver is present. Gallbladder is unremarkable with no cholelithiasis or findings of cholecystitis. Common bile duct is unremarkable. Portal venous flow is normal. No biliary dilatation. Proximal pancreas is normal. Distal pancreas is obscured by bowel gas. Right kidney measures 10 cm longitudinally. No right hydronephrosis. Normal right renal contour and echotexture. Inferior vena cava is unremarkable. No right upper quadrant ascites. Impression: Mild fatty infiltration of the liver. Electronically signed by: Tacos Palm MD (10/19/2019 1:42 PM) [facility] DICTATED and SIGNED BY: TACOS PALM MD DATE: 10/19/19 1343 Course & Med Decision Making Course & Med Decision Making Pertinent Labs and Imaging studies reviewed. (See chart for details) Evaluation of patient in ER showed 43-year-old female patient with episodes of nausea and vomiting for 2 weeks. She had had a large amount of liquid vomiting with small coffee-ground material inside of that with positive gastrocolic and treated with Protonix. Patient also had blood sugar of more than 400 and treated with IV fluids and insulin and Zofran with improvement of vomiting. White count was 16,000 without elevation of lactic acid. Gallbladder ultrasound was unremarkable.she had blood in urine related to vaginal bleeding. Patient requiring admission for further evaluation and treatment. Discussed with Dr. Pinon who is in agreement with admission. Discussed findings and plan with patient and family, who acknowledge understanding and agreement. Dragon Disclaimer Dragon Disclaimer This electronic medical record was generated, in whole or in part, using a voice recognition dictation system. Departure Departure Impression: Primary Impression: Hyperglycemia Additional Impressions: Intractable nausea and vomiting GI bleeding Marijuana abuse Disposition: ADMITTED INPATIENT (at 1510) Admitting Physician: BAYRON (Dr Archuleta accepted admission at 1510) Condition: IMPROVED Referrals: NO PCP (PCP) Problem Qualifiers Additional Impressions: GI bleeding GI bleed type/associated pathology: unspecified gastrointestinal hemorrhage type Qualified Codes: K92.2 - Gastrointestinal hemorrhage, unspecified ALIZA BROWN MD Oct 19, 2019 15:31
[2019-10-19] MEDS ORDERED: DEXTROSE 50% 25 GM / 50ML DISP.SYRIN. IV PRN (15:45)
[2019-10-19] MEDS ORDERED: ONDANSETRON PF 4 MG/2 ML VIAL. IV PRN (15:45)
[2019-10-19] MEDS ORDERED: diphenhydrAMINE 50 MG/ML VIAL IVP ONE (16:15)
--- NOTE | 2019-10-19 16:27 | HP ---
ADMIT DATE: 10/19/2019 CHIEF COMPLAINT: Abdominal pain, nausea, vomiting, high glucose. HISTORY OF PRESENT ILLNESS: The patient is a pleasant 43-year-old female who has advanced diabetes. Basically, she presented with nausea, vomiting, some diarrhea, and abdominal pain. It has been occurring for several weeks, rates it at 7/10. She has associated anxiety, described as agonizing. She increased her home meds; that did not work. I discussed the case with the ER physician. It appears the patient has leukocytosis with hyperglycemia with a glucose of 473. She also has an anion gap metabolic acidosis. We are going to admit the patient and give her some insulin and fluids, antiemetics, and get her electrolytes corrected and I am going to use some empiric IV antibiotics as well. PAST MEDICAL HISTORY: Diabetes, hypertension, hyperlipidemia, , toe amputation, marijuana use. ALLERGIES: None. FAMILY HISTORY: Diabetes. SOCIAL HISTORY: She does not drink, smoke or take drugs. MEDICATIONS: Reviewed, please refer to the MRAD. REVIEW OF SYSTEMS: GENERAL: No history of weight change, weakness or fevers. SKIN: No bruising, hair changes or rashes. EYES: No blurred, double or loss of vision. NOSE AND THROAT: No history of nosebleeds, hoarseness or sore throat. HEART: No history of palpitations, chest pain or shortness of breath on exertion. LUNGS: Denies cough, hemoptysis, wheezing or shortness of breath. GASTROINTESTINAL: She complains of nausea, vomiting and diarrhea for the last month. GENITOURINARY: No history of frequency, urgency, hesitancy or nocturia. NEUROLOGIC: Denies history of numbness, tingling, tremor or weakness. PSYCHIATRIC: No history of panic, anxiety or depression. ENDOCRINE: No history of heat or cold intolerance, polyuria or polydipsia. EXTREMITIES: Denies muscle weakness, joint pain, pain on walking or stiffness. PHYSICAL EXAMINATION: VITALS: Within normal limits and are stable. GENERAL: Alert and oriented. She is complaining of nausea. She just vomited. HEENT: Normal cephalic atraumatic, external auditory canals are patent EYES: Extraocular muscles are intact, pupils are equally round and reactive to light and accommodation MUSCULOSKELETAL: Well developed, well nourished, good range of motion ENDOCRINE: No thyromegaly was palpated LYMPHATICS: No cervical chain or axillary nodes were noted HEMATOPOIETIC: No bruising NECK: Supple, no JVD, no thyromegaly was noted. LUNGS: Clear to auscultation in all lung chen without rhonchi or wheezing. HEART: RRR, S1, S2 present. Peripheral pulses intact, no obvious murmurs were noted. ABDOMEN: Soft, nontender. She has decreased bowel sounds. No organomegaly, normal bowel sounds. EXTREMITIES: Without any cyanosis, clubbing, or edema. Pedal pulses intact, Homans sign is negative. NEUROLOGIC: Normal speech, normal tone. A & O x 3, moves all extremities, no obvious focal deficits. PSYCHIATRIC: Normal affect, normal mood. Stable. SKIN: No ulcerations or rashes, good skin turgor, no jaundice. VASCULAR: Good capillary refill, neurovascular bundle appears to be intact. LABORATORY DATA: White count 16, hemoglobin 12, platelets 234. Electrolytes: Sodium 133, potassium 3.8, chloride 91, bicarbonate 22, BUN 11, creatinine 0.9, glucose 473. Anion gap is 20. Drug screen positive for cannabinoids. Urinalysis negative. INR is 1. Gastroccult positive. ASSESSMENT AND PLAN: Hyperglycemia, anion gap metabolic acidosis, leukocytosis, electrolyte disturbance with hyponatremia. Plan is to start IV fluids, IV insulin, consult GI, correct her electrolytes, empiric IV antibiotics, home meds, DVT prophylaxis. Full code. AMADO LIVE DO DR: KELLY/lizz JOB#: [id number] / [id number]
[2019-10-19] MEDS ORDERED: fentaNYL PF VIAL 100 MCG/2 ML VIAL IVP ONE (17:00)
[2019-10-19] MEDS: IV NORMAL SALINE 1000ML BAG 1,000 ML IV SCH ×2 (17:30→20:41)
[2019-10-19] MEDS: PANTOPRAZOLE SODIUM IV DRIP 80 MG in IV NORMAL SALINE 100ML 100 ML IV SCH (17:30)
--- NOTE | 2019-10-19 18:17 | PDOC2 ---
CONSULT Date of Consult Date of Consult DATE: 10/19/19 TIME: 18:15 Reason for Consult Reason for Consult: n/v Past Medical History Cardiovascular: HTN, Hyperlipidemia Pulmonary: No pertinent hx CENTRAL NERVOUS SYSTEM: Other GI: GERD Heme/Onc: No pertinent hx Hepatobiliary: No pertinent hx Psych: No pertinent hx Musculoskeletal: Osteoarthritis Rheumatologic: No pertinent hx Infectious disease: Other Renal/: No pertinent hx Endocrine: Diabetes Past Surgical History Past Surgical History: , Other Family History Family History: Coronary Artery Disease, Stroke Social History ALCOHOL: none Drugs: Marijuana Lives: with Family Current Problem List Problem List Problems Medical Problems: (1) GI bleeding Status: Acute (2) Intractable nausea and vomiting Status: Acute (3) Marijuana abuse Status: Acute Current Medications Current Medications Current Medications Ondansetron HCl (Zofran) 4 mg STK-MED ONCE .ROUTE ; Start 10/19/19 at 12:48; Stop 10/19/19 at 12:49; Status DC Sodium Chloride 1,000 ml @ 1,000 mls/hr Q1H IV Last administered on 10/19/19at 13:47; Start 10/19/19 at 12:49; Stop 10/19/19 at 13:48; Status DC Ondansetron HCl (Zofran) 4 mg 1X ONCE IV Last administered on 10/19/19at 13:46; Start 10/19/19 at 13:30; Stop 10/19/19 at 13:31; Status DC Lorazepam (Ativan Inj) 1 mg 1X ONCE IVP ; Start 10/19/19 at 13:30; Stop 10/19/19 at 13:31; Status DC Insulin Human Regular (HumuLIN R VIAL) 10 unit 1X ONCE IV Last administered on 10/19/19at 15:33; Start 10/19/19 at 14:30; Stop 10/19/19 at 14:31; Status DC Sodium Chloride 1,000 ml @ 1,000 mls/hr 1X ONCE IV Last administered on 10/19/19at 15:33; Start 10/19/19 at 14:30; Stop 10/19/19 at 15:29; Status DC Pantoprazole Sodium (PROTONIX VIAL for IV PUSH) 40 mg 1X ONCE IVP Last administered on 10/19/19at 15:32; Start 10/19/19 at 15:15; Stop 10/19/19 at 15:16; Status DC Ondansetron HCl (Zofran) 4 mg PRN Q8HRS PRN IV NAUSEA/VOMITING; Start 10/19/19 at 15:45; Stop 10/19/19 at 20:00 Sodium Chloride 1,000 ml @ 150 mls/hr Q6H40M IV ; Start 10/19/19 at 15:42; Stop 10/20/19 at 15:41 Dextrose (Dextrose 50%-Water Syringe) 12.5 gm PRN Q15MIN PRN IV SEE COMMENTS; Start 10/19/19 at 15:45 Ceftriaxone Sodium (Rocephin) 1 gm Q24H IVP ; Start 10/19/19 at 17:00 Diphenhydramine HCl (Benadryl) 25 mg 1X ONCE IVP Last administered on 10/19/19at 16:40; Start 10/19/19 at 16:15; Stop 10/19/19 at 16:16; Status DC Pantoprazole Sodium 80 mg/ Sodium Chloride 100 ml @ 10 mls/hr Q10H IV ; Start 10/19/19 at 17:00 Fentanyl Citrate (Fentanyl 2ml Vial) 50 mcg 1X ONCE IVP ; Start 10/19/19 at 17:00; Stop 10/19/19 at 17:01; Status DC Active Scripts Active Doxycycline Monohydrate 100 Mg Capsule 1 Cap PO BID 7 Days Pantoprazole Sodium (Pantoprazole Sodium) 40 Mg Tablet.dr 40 Mg PO DAILYAC 30 Days Metformin Hcl 500 Mg Tablet 500 Mg PO BIDWMEALS 30 Days Levemir (Insulin Detemir) 100 Unit/1 Ml Vial 18 Unit SQ BID 30 Days Lisinopril 5 Mg Tablet 1 Tab PO DAILY Levemir (Insulin Detemir) 100 Unit/1 Ml Vial 30 Unit SQ QHS 30 Days Allergies Allergies: Coded Allergies: No Known Drug Allergies (Unverified , 12/27/17) Vitals VITALS Vital Signs Date Time Temp Pulse Resp B/P (MAP) Pulse Ox O2 Delivery O2 Flow Rate FiO2 10/19/19 12:39 98.3 131 22 183/129 (147) 96 Room Air 98.3 Labs Labs Laboratory Tests Test 10/19/19 12:47 10/19/19 13:00 10/19/19 14:00 10/19/19 14:45 Bedside Urine HCG, Qualitative Hcg negative (Negative) Urine Collection Type Unknown Urine Color Yellow Urine Clarity Clear Urine pH 5.5 Urine Specific [place] >=1.030 Urine Protein 30 mg/dL (NEG-TRACE) Urine Glucose (UA) >=1000 mg/dL (NEG) Urine Ketones (Stick) 40 mg/dL (NEG) Urine Blood Large (NEG) Urine Nitrite Negative (NEG) Urine Bilirubin Negative (NEG) Urine Urobilinogen Dipstick 0.2 mg/dL (0.2 mg/dL) Urine Leukocyte Esterase Negative (NEG) Urine RBC 20-40 /HPF (0-2) Urine WBC 1-4 /HPF (0-4) Urine Squamous Epithelial Cells Mod /LPF Urine Bacteria Few /HPF (0-FEW) Urine Hyaline Casts Moderate /HPF Urine Mucus Slight /LPF Urine Trichomonas Present Gastric Fluid Occult Blood Positive (NEG) Urine Opiates Screen Neg (NEG) Urine Methadone Screen Neg (NEG) Urine Barbiturates Neg (NEG) Urine Phencyclidine Screen Neg (NEG) Urine Amphetamine/Methamphetamine Neg (NEG) Urine Benzodiazepines Screen Neg (NEG) Urine Cocaine Screen Neg (NEG) Urine Cannabinoids Screen Pos (NEG) Urine Ethyl Alcohol Neg (NEG) White Blood Count 16.0 x10^3/uL (4.0-11.0) Red Blood Count 4.23 x10^6/uL (3.50-5.40) Hemoglobin 12.4 g/dL (12.0-15.5) Hematocrit 38.0 % (36.0-47.0) Mean Corpuscular Volume 90 fL (79-100) Mean Corpuscular Hemoglobin 29 pg (25-35) Mean Corpuscular Hemoglobin Concent 33 g/dL (31-37) Red Cell Distribution Width 13.9 % (11.5-14.5) Platelet Count 334 x10^3/uL (140-400) Neutrophils (%) (Auto) 81 % (31-73) Lymphocytes (%) (Auto) 17 % (24-48) Monocytes (%) (Auto) 2 % (0-9) Eosinophils (%) (Auto) 0 % (0-3) Basophils (%) (Auto) 0 % (0-3) Neutrophils # (Auto) 12.9 x10^3/uL (1.8-7.7) Lymphocytes # (Auto) 2.7 x10^3/uL (1.0-4.8) Monocytes # (Auto) 0.3 x10^3/uL (0.0-1.1) Eosinophils # (Auto) 0.0 x10^3/uL (0.0-0.7) Basophils # (Auto) 0.0 x10^3/uL (0.0-0.2) Segmented Neutrophils % 81 % (35-66) Band Neutrophils % 1 % (0-9) Lymphocytes % 16 % (24-48) Monocytes % 2 % (0-10) Platelet Estimate Adequate (ADEQUATE) Prothrombin Time 12.6 SEC (11.7-14.0) Prothromb Time International Ratio 1.0 (0.8-1.1) Sodium Level 133 mmol/L (136-145) Potassium Level 3.8 mmol/L (3.5-5.1) Chloride Level 91 mmol/L (98-107) Carbon Dioxide Level 22 mmol/L (21-32) Anion Gap 20 (6-14) Blood Urea Nitrogen 11 mg/dL (7-20) Creatinine 0.9 mg/dL (0.6-1.0) Estimated GFR (Cockcroft-Gault) 82.7 BUN/Creatinine Ratio 12 (6-20) Glucose Level 473 mg/dL (70-99) Lactic Acid Level 1.7 mmol/L (0.4-2.0) Calcium Level 10.1 mg/dL (8.5-10.1) Magnesium Level 2.1 mg/dL (1.8-2.4) Total Bilirubin 0.7 mg/dL (0.2-1.0) Aspartate Amino Transf (AST/SGOT) 14 U/L (15-37) Alanine Aminotransferase (ALT/SGPT) 20 U/L (14-59) Alkaline Phosphatase 145 U/L (46-116) Troponin I Quantitative < 0.017 ng/mL (0.000-0.055) Total Protein 8.8 g/dL (6.4-8.2) Albumin 4.4 g/dL (3.4-5.0) Albumin/Globulin Ratio 1.0 (1.0-1.7) Lipase 74 U/L (73-393) Acetone Level Sm pos (NEG) O2 Saturation 97 % (92-99) Arterial Blood pH 7.44 (7.35-7.45) Arterial Blood pCO2 at Patient Temp 32 mmHg (35-46) Arterial Blood pO2 at Patient Temp 92 mmHg (75-108) Arterial Blood HCO3 21 mmol/L (21-28) Arterial Blood Base Excess -2 mmol/L (-3-3) FiO2 21 Test 10/19/19 17:34 Glucose (Fingerstick) 259 mg/dL (70-99) Laboratory Tests Test 10/19/19 12:47 10/19/19 13:00 10/19/19 14:00 10/19/19 14:45 Bedside Urine HCG, Qualitative Hcg negative (Negative) Urine Collection Type Unknown Urine Color Yellow Urine Clarity Clear Urine pH 5.5 Urine Specific [place] >=1.030 Urine Protein 30 mg/dL (NEG-TRACE) Urine Glucose (UA) >=1000 mg/dL (NEG) Urine Ketones (Stick) 40 mg/dL (NEG) Urine Blood Large (NEG) Urine Nitrite Negative (NEG) Urine Bilirubin Negative (NEG) Urine Urobilinogen Dipstick 0.2 mg/dL (0.2 mg/dL) Urine Leukocyte Esterase Negative (NEG) Urine RBC 20-40 /HPF (0-2) Urine WBC 1-4 /HPF (0-4) Urine Squamous Epithelial Cells Mod /LPF Urine Bacteria Few /HPF (0-FEW) Urine Hyaline Casts Moderate /HPF Urine Mucus Slight /LPF Urine Trichomonas Present Gastric Fluid Occult Blood Positive (NEG) Urine Opiates Screen Neg (NEG) Urine Methadone Screen Neg (NEG) Urine Barbiturates Neg (NEG) Urine Phencyclidine Screen Neg (NEG) Urine Amphetamine/Methamphetamine Neg (NEG) Urine Benzodiazepines Screen Neg (NEG) Urine Cocaine Screen Neg (NEG) Urine Cannabinoids Screen Pos (NEG) Urine Ethyl Alcohol Neg (NEG) White Blood Count 16.0 x10^3/uL (4.0-11.0) Red Blood Count 4.23 x10^6/uL (3.50-5.40) Hemoglobin 12.4 g/dL (12.0-15.5) Hematocrit 38.0 % (36.0-47.0) Mean Corpuscular Volume 90 fL (79-100) Mean Corpuscular Hemoglobin 29 pg (25-35) Mean Corpuscular Hemoglobin Concent 33 g/dL (31-37) Red Cell Distribution Width 13.9 % (11.5-14.5) Platelet Count 334 x10^3/uL (140-400) Neutrophils (%) (Auto) 81 % (31-73) Lymphocytes (%) (Auto) 17 % (24-48) Monocytes (%) (Auto) 2 % (0-9) Eosinophils (%) (Auto) 0 % (0-3) Basophils (%) (Auto) 0 % (0-3) Neutrophils # (Auto) 12.9 x10^3/uL (1.8-7.7) Lymphocytes # (Auto) 2.7 x10^3/uL (1.0-4.8) Monocytes # (Auto) 0.3 x10^3/uL (0.0-1.1) Eosinophils # (Auto) 0.0 x10^3/uL (0.0-0.7) Basophils # (Auto) 0.0 x10^3/uL (0.0-0.2) Segmented Neutrophils % 81 % (35-66) Band Neutrophils % 1 % (0-9) Lymphocytes % 16 % (24-48) Monocytes % 2 % (0-10) Platelet Estimate Adequate (ADEQUATE) Prothrombin Time 12.6 SEC (11.7-14.0) Prothromb Time International Ratio 1.0 (0.8-1.1) Sodium Level 133 mmol/L (136-145) Potassium Level 3.8 mmol/L (3.5-5.1) Chloride Level 91 mmol/L (98-107) Carbon Dioxide Level 22 mmol/L (21-32) Anion Gap 20 (6-14) Blood Urea Nitrogen 11 mg/dL (7-20) Creatinine 0.9 mg/dL (0.6-1.0) Estimated GFR (Cockcroft-Gault) 82.7 BUN/Creatinine Ratio 12 (6-20) Glucose Level 473 mg/dL (70-99) Lactic Acid Level 1.7 mmol/L (0.4-2.0) Calcium Level 10.1 mg/dL (8.5-10.1) Magnesium Level 2.1 mg/dL (1.8-2.4) Total Bilirubin 0.7 mg/dL (0.2-1.0) Aspartate Amino Transf (AST/SGOT) 14 U/L (15-37) Alanine Aminotransferase (ALT/SGPT) 20 U/L (14-59) Alkaline Phosphatase 145 U/L (46-116) Troponin I Quantitative < 0.017 ng/mL (0.000-0.055) Total Protein 8.8 g/dL (6.4-8.2) Albumin 4.4 g/dL (3.4-5.0) Albumin/Globulin Ratio 1.0 (1.0-1.7) Lipase 74 U/L (73-393) Acetone Level Sm pos (NEG) O2 Saturation 97 % (92-99) Arterial Blood pH 7.44 (7.35-7.45) Arterial Blood pCO2 at Patient Temp 32 mmHg (35-46) Arterial Blood pO2 at Patient Temp 92 mmHg (75-108) Arterial Blood HCO3 21 mmol/L (21-28) Arterial Blood Base Excess -2 mmol/L (-3-3) FiO2 21 Test 10/19/19 17:34 Glucose (Fingerstick) 259 mg/dL (70-99) Assessment/Plan Assessment/Plan n/v- with poorly controlled DM. most likely secondary to gastroparesis. PUD, GB disease, and/or paraesophageal hernia in differential. Plan PPI therapy US liver consider EGD.UGI if symptoms persist imprved glycemic control Full note dictated SONIYA EDUARDO MD Oct 19, 2019 18:17
[2019-10-19] MEDS: cefTRIAXone IV Push 1 GM VIAL. IVP SCH (19:00)
[2019-10-19 19:45] VITALS: BP 135/66
[2019-10-19 23:50] VITALS: BP 184/104
[2019-10-20] MEDS: hydrALAZINE 20 MG/ML VIAL. IVP PRN ×3 (00:18→20:16)
[2019-10-20] MEDS: diphenhydrAMINE 50 MG/ML VIAL IVP PRN ×4 (00:19→20:14)
[2019-10-20] MEDS: PANTOPRAZOLE SODIUM IV DRIP 80 MG in IV NORMAL SALINE 100ML 100 ML IV SCH (02:43)
--- NOTE | 2019-10-20 03:05 | CONS ---
DATE OF CONSULTATION: 10/19/2019 REASON FOR CONSULTATION: Nausea and vomiting. HISTORY OF PRESENT ILLNESS: This is a 43-year-old -[place] female with past medical history significant for longstanding diabetes mellitus type 2 with noncompliance, hyperlipidemia, hypertension, status post , status post left toe amputation who was admitted to [facility] with intractable nausea and vomiting. She says she has had 5-6 episodes of vomiting daily for the past 2 weeks without any abdominal pain, chest pain, shortness of breath or additional constitutional symptoms. No one else at home is presently ill. Gallbladder surgery has been previously noted. She states she has used marijuana as an antiemetic, but has not been doing any vaping. With continued issues, she has been admitted to the hospital for further evaluation and care. PAST MEDICAL HISTORY: Diabetes, hyperlipidemia, hypertension, status post , and left toe amputation. ALLERGIES: None. MEDICATIONS: Include Protonix, ceftriaxone, and sodium chloride. SOCIAL HISTORY: She is a smoker, not a drinker. FAMILY HISTORY: Noncontributory. REVIEW OF SYSTEMS: Per records. PHYSICAL EXAMINATION: GENERAL: Reveals a well-nourished, well-developed -[place] female. VITAL SIGNS: Temperature is 98.3, pulse 131, respiratory rate 22 and blood pressure is 183/128. HEENT: Reveals normocephalic, atraumatic head. Pupils and extraocular muscles are not tested. Sclerae anicteric. NECK: Supple. LUNGS: Clear. CARDIOVASCULAR: Reveals an S1, S2 without S3, S4 or appreciable murmur. ABDOMEN: With a soft abdomen, normal bowel sounds, without appreciable hepatosplenomegaly. EXTREMITIES: Reveals no cyanosis, clubbing or edema. LABORATORY STUDIES: Hemoglobin 12.4, hematocrit 35.0, white count 16, and platelet count 334,000. Sodium 133, potassium 3.8, BUN is 11, creatinine 0.9, glucose of 473, calcium is 10.1, magnesium 2.1, total bilirubin 0.7, AST 14, ALT 20, alkaline phosphatase 145. Troponin 0.017, total protein 8.8, albumin 4.4 and lipase is 74. IMPRESSION AND PLAN: Nausea and vomiting, most likely secondary to poorly-controlled diabetes, diabetic gastroparesis, gallbladder disease and peptic ulcer disease certainly are possible as well. Therefore, I recommend PPI therapy. An ultrasound of the gallbladder to further assess and improved glycemia control in longer term. SONIYA EDUARDO MD DR: WILLI/lizz JOB#: [id number] / [id number]
[2019-10-20 03:50] VITALS: BP 176/86
[2019-10-20] MEDS: IV NORMAL SALINE 1000ML BAG 1,000 ML IV SCH ×2 (05:02→11:42)
[2019-10-20] MEDS: ONDANSETRON PF 4 MG/2 ML VIAL. IVP PRN ×3 (05:36→17:08)
[2019-10-20 07:00] VITALS: BP 107/65
[2019-10-20] MEDS ORDERED: DEXTROSE 50% 25 GM / 50ML DISP.SYRIN. IV PRN (08:15)
[2019-10-20] MEDS: INSULIN LISPRO 300 UNITS/3 ML VIAL. SQ SCH ×3 (09:18→17:49)
--- NOTE | 2019-10-20 09:18 | PDOC ---
PROGRESS NOTES History of Present Illness History of Present Illness ASSESSMENT AND PLAN: Hyperglycemia, anion gap metabolic acidosis, leukocytosis, electrolyte disturbance hyponatremia. THC ABUSE DIABETES, UNCONTROLLED HTN UNCONTROLLED Mild fatty infiltration of the liver. HX NONCOMPLIANCE MORBID OBESITY Plan admit IV fluids, IV insulin, consult GI, replete electrolytes, empiric IV antibiotics, home meds, DVT prophylaxis. Full code CONTROL GLUCOSE. A1C IV HYDRALAZINE 10MG Q 4 HRS PRN BP SUPPORT 38 MIN PT exam, chart review, > 50% of time spent with exam, chart review, pt care coordination Vitals Vitals Vital Signs Date Time Temp Pulse Resp B/P (MAP) Pulse Ox O2 Delivery O2 Flow Rate FiO2 10/20/19 07:00 99.4 107 16 107/65 (79) 94 Room Air 99.4 Physical Exam Physical Exam MUSCULOSKELETAL: Well developed, well nourished, good range of motion ENDOCRINE: No thyromegaly was palpated LYMPHATICS: No cervical chain or axillary nodes were noted HEMATOPOIETIC: No bruising NECK: Supple, no JVD, no thyromegaly was noted. LUNGS: Clear to auscultation in all lung chen without rhonchi or wheezing. HEART: RRR, S1, S2 present. Peripheral pulses intact, no obvious murmurs were noted. ABDOMEN: Soft, nontender. She has decreased bowel sounds. No organomegaly, normal bowel sounds. EXTREMITIES: Without any cyanosis, clubbing, or edema. Pedal pulses intact, Homans sign is negative. NEUROLOGIC: Normal speech, normal tone. A & O x 3, moves all extremities, no obvious focal deficits. PSYCHIATRIC: Normal affect, normal mood. Stable. SKIN: No ulcerations or rashes, good skin turgor, no jaundice. VASCULAR: Good capillary refill, neurovascular bundle appears to be intact. LABORATORY DATA: White count 16, hemoglobin 12, platelets 234. Electrolytes: Sodium 133, potassium 3.8, chloride 91, bicarbonate 22, BUN 11, creatinine 0.9, glucose 473. Anion gap is 20. Drug screen positive for cannabinoids. Urinalysis negative. INR is 1. Gastroccult positive. General: Alert, Oriented X3, Cooperative, No acute distress Heart: Regular rate Lungs: Clear Abdomen: Soft Extremities: No cyanosis Labs LABS SEX: F EXAM STATUS: REG ER ORD. PHYSICIAN: ALIZA BROWN MD REASON: nausea and vomiting and abdominal pain for 2 weeks PROCEDURE: ABDOMEN LTD Examination: ABDOMEN LTD History: Nausea and vomiting. Abdominal pain for 2 weeks. Comparison/Correlation: 06/01/2019 CT abdomen and pelvis without contrast Findings: Limited right upper quadrant ultrasound was performed. Mild fatty infiltration of the liver is present. Gallbladder is unremarkable with no cholelithiasis or findings of cholecystitis. Common bile duct is unremarkable. Portal venous flow is normal. No biliary dilatation. Proximal pancreas is normal. Distal pancreas is obscured by bowel gas. Right kidney measures 10 cm longitudinally. No right hydronephrosis. Normal right renal contour and echotexture. Inferior vena cava is unremarkable. No right upper quadrant ascites. Impression: Mild fatty infiltration of the liver. Electronically signed by: Tacos Palm MD (10/19/2019 1:42 PM) [facility] DICTATED and SIGNED BY: TACOS PALM MD DATE: 10/19/19 1342 Laboratory Tests Test 10/19/19 12:47 10/19/19 13:00 10/19/19 14:00 10/19/19 14:45 Bedside Urine HCG, Qualitative Hcg negative (Negative) Urine Collection Type Unknown Urine Color Yellow Urine Clarity Clear Urine pH 5.5 Urine Specific [place] >=1.030 Urine Protein 30 mg/dL (NEG-TRACE) Urine Glucose (UA) >=1000 mg/dL (NEG) Urine Ketones (Stick) 40 mg/dL (NEG) Urine Blood Large (NEG) Urine Nitrite Negative (NEG) Urine Bilirubin Negative (NEG) Urine Urobilinogen Dipstick 0.2 mg/dL (0.2 mg/dL) Urine Leukocyte Esterase Negative (NEG) Urine RBC 20-40 /HPF (0-2) Urine WBC 1-4 /HPF (0-4) Urine Squamous Epithelial Cells Mod /LPF Urine Bacteria Few /HPF (0-FEW) Urine Hyaline Casts Moderate /HPF Urine Mucus Slight /LPF Urine Trichomonas Present Gastric Fluid Occult Blood Positive (NEG) Urine Opiates Screen Neg (NEG) Urine Methadone Screen Neg (NEG) Urine Barbiturates Neg (NEG) Urine Phencyclidine Screen Neg (NEG) Urine Amphetamine/Methamphetamine Neg (NEG) Urine Benzodiazepines Screen Neg (NEG) Urine Cocaine Screen Neg (NEG) Urine Cannabinoids Screen Pos (NEG) Urine Ethyl Alcohol Neg (NEG) White Blood Count 16.0 x10^3/uL (4.0-11.0) Red Blood Count 4.23 x10^6/uL (3.50-5.40) Hemoglobin 12.4 g/dL (12.0-15.5) Hematocrit 38.0 % (36.0-47.0) Mean Corpuscular Volume 90 fL (79-100) Mean Corpuscular Hemoglobin 29 pg (25-35) Mean Corpuscular Hemoglobin Concent 33 g/dL (31-37) Red Cell Distribution Width 13.9 % (11.5-14.5) Platelet Count 334 x10^3/uL (140-400) Neutrophils (%) (Auto) 81 % (31-73) Lymphocytes (%) (Auto) 17 % (24-48) Monocytes (%) (Auto) 2 % (0-9) Eosinophils (%) (Auto) 0 % (0-3) Basophils (%) (Auto) 0 % (0-3) Neutrophils # (Auto) 12.9 x10^3/uL (1.8-7.7) Lymphocytes # (Auto) 2.7 x10^3/uL (1.0-4.8) Monocytes # (Auto) 0.3 x10^3/uL (0.0-1.1) Eosinophils # (Auto) 0.0 x10^3/uL (0.0-0.7) Basophils # (Auto) 0.0 x10^3/uL (0.0-0.2) Segmented Neutrophils % 81 % (35-66) Band Neutrophils % 1 % (0-9) Lymphocytes % 16 % (24-48) Monocytes % 2 % (0-10) Platelet Estimate Adequate (ADEQUATE) Prothrombin Time 12.6 SEC (11.7-14.0) Prothromb Time International Ratio 1.0 (0.8-1.1) Sodium Level 133 mmol/L (136-145) Potassium Level 3.8 mmol/L (3.5-5.1) Chloride Level 91 mmol/L (98-107) Carbon Dioxide Level 22 mmol/L (21-32) Anion Gap 20 (6-14) Blood Urea Nitrogen 11 mg/dL (7-20) Creatinine 0.9 mg/dL (0.6-1.0) Estimated GFR (Cockcroft-Gault) 82.7 BUN/Creatinine Ratio 12 (6-20) Glucose Level 473 mg/dL (70-99) Lactic Acid Level 1.7 mmol/L (0.4-2.0) Calcium Level 10.1 mg/dL (8.5-10.1) Magnesium Level 2.1 mg/dL (1.8-2.4) Total Bilirubin 0.7 mg/dL (0.2-1.0) Aspartate Amino Transf (AST/SGOT) 14 U/L (15-37) Alanine Aminotransferase (ALT/SGPT) 20 U/L (14-59) Alkaline Phosphatase 145 U/L (46-116) Troponin I Quantitative < 0.017 ng/mL (0.000-0.055) Total Protein 8.8 g/dL (6.4-8.2) Albumin 4.4 g/dL (3.4-5.0) Albumin/Globulin Ratio 1.0 (1.0-1.7) Lipase 74 U/L (73-393) Acetone Level Sm pos (NEG) O2 Saturation 97 % (92-99) Arterial Blood pH 7.44 (7.35-7.45) Arterial Blood pCO2 at Patient Temp 32 mmHg (35-46) Arterial Blood pO2 at Patient Temp 92 mmHg (75-108) Arterial Blood HCO3 21 mmol/L (21-28) Arterial Blood Base Excess -2 mmol/L (-3-3) FiO2 21 Test 10/19/19 17:34 10/19/19 22:05 10/20/19 07:31 Glucose (Fingerstick) 259 mg/dL (70-99) 246 mg/dL (70-99) 403 mg/dL (70-99) Assessment and Plan Assessmemt and Plan Problems Medical Problems: (1) GI bleeding Status: Acute (2) Intractable nausea and vomiting Status: Acute (3) Marijuana abuse Status: Acute Comment Review of Relevant I have reviewed the following items dary (where applicable) has been applied. Labs Laboratory Tests Test 10/19/19 12:47 10/19/19 13:00 10/19/19 14:00 10/19/19 14:45 Bedside Urine HCG, Qualitative Hcg negative (Negative) Urine Collection Type Unknown Urine Color Yellow Urine Clarity Clear Urine pH 5.5 Urine Specific [place] >=1.030 Urine Protein 30 mg/dL (NEG-TRACE) Urine Glucose (UA) >=1000 mg/dL (NEG) Urine Ketones (Stick) 40 mg/dL (NEG) Urine Blood Large (NEG) Urine Nitrite Negative (NEG) Urine Bilirubin Negative (NEG) Urine Urobilinogen Dipstick 0.2 mg/dL (0.2 mg/dL) Urine Leukocyte Esterase Negative (NEG) Urine RBC 20-40 /HPF (0-2) Urine WBC 1-4 /HPF (0-4) Urine Squamous Epithelial Cells Mod /LPF Urine Bacteria Few /HPF (0-FEW) Urine Hyaline Casts Moderate /HPF Urine Mucus Slight /LPF Urine Trichomonas Present Gastric Fluid Occult Blood Positive (NEG) Urine Opiates Screen Neg (NEG) Urine Methadone Screen Neg (NEG) Urine Barbiturates Neg (NEG) Urine Phencyclidine Screen Neg (NEG) Urine Amphetamine/Methamphetamine Neg (NEG) Urine Benzodiazepines Screen Neg (NEG) Urine Cocaine Screen Neg (NEG) Urine Cannabinoids Screen Pos (NEG) Urine Ethyl Alcohol Neg (NEG) White Blood Count 16.0 x10^3/uL (4.0-11.0) Red Blood Count 4.23 x10^6/uL (3.50-5.40) Hemoglobin 12.4 g/dL (12.0-15.5) Hematocrit 38.0 % (36.0-47.0) Mean Corpuscular Volume 90 fL (79-100) Mean Corpuscular Hemoglobin 29 pg (25-35) Mean Corpuscular Hemoglobin Concent 33 g/dL (31-37) Red Cell Distribution Width 13.9 % (11.5-14.5) Platelet Count 334 x10^3/uL (140-400) Neutrophils (%) (Auto) 81 % (31-73) Lymphocytes (%) (Auto) 17 % (24-48) Monocytes (%) (Auto) 2 % (0-9) Eosinophils (%) (Auto) 0 % (0-3) Basophils (%) (Auto) 0 % (0-3) Neutrophils # (Auto) 12.9 x10^3/uL (1.8-7.7) Lymphocytes # (Auto) 2.7 x10^3/uL (1.0-4.8) Monocytes # (Auto) 0.3 x10^3/uL (0.0-1.1) Eosinophils # (Auto) 0.0 x10^3/uL (0.0-0.7) Basophils # (Auto) 0.0 x10^3/uL (0.0-0.2) Segmented Neutrophils % 81 % (35-66) Band Neutrophils % 1 % (0-9) Lymphocytes % 16 % (24-48) Monocytes % 2 % (0-10) Platelet Estimate Adequate (ADEQUATE) Prothrombin Time 12.6 SEC (11.7-14.0) Prothromb Time International Ratio 1.0 (0.8-1.1) Sodium Level 133 mmol/L (136-145) Potassium Level 3.8 mmol/L (3.5-5.1) Chloride Level 91 mmol/L (98-107) Carbon Dioxide Level 22 mmol/L (21-32) Anion Gap 20 (6-14) Blood Urea Nitrogen 11 mg/dL (7-20) Creatinine 0.9 mg/dL (0.6-1.0) Estimated GFR (Cockcroft-Gault) 82.7 BUN/Creatinine Ratio 12 (6-20) Glucose Level 473 mg/dL (70-99) Lactic Acid Level 1.7 mmol/L (0.4-2.0) Calcium Level 10.1 mg/dL (8.5-10.1) Magnesium Level 2.1 mg/dL (1.8-2.4) Total Bilirubin 0.7 mg/dL (0.2-1.0) Aspartate Amino Transf (AST/SGOT) 14 U/L (15-37) Alanine Aminotransferase (ALT/SGPT) 20 U/L (14-59) Alkaline Phosphatase 145 U/L (46-116) Troponin I Quantitative < 0.017 ng/mL (0.000-0.055) Total Protein 8.8 g/dL (6.4-8.2) Albumin 4.4 g/dL (3.4-5.0) Albumin/Globulin Ratio 1.0 (1.0-1.7) Lipase 74 U/L (73-393) Acetone Level Sm pos (NEG) O2 Saturation 97 % (92-99) Arterial Blood pH 7.44 (7.35-7.45) Arterial Blood pCO2 at Patient Temp 32 mmHg (35-46) Arterial Blood pO2 at Patient Temp 92 mmHg (75-108) Arterial Blood HCO3 21 mmol/L (21-28) Arterial Blood Base Excess -2 mmol/L (-3-3) FiO2 21 Test 10/19/19 17:34 10/19/19 22:05 10/20/19 07:31 Glucose (Fingerstick) 259 mg/dL (70-99) 246 mg/dL (70-99) 403 mg/dL (70-99) Laboratory Tests Test 10/19/19 12:47 10/19/19 13:00 10/19/19 14:00 10/19/19 14:45 Bedside Urine HCG, Qualitative Hcg negative (Negative) Urine Collection Type Unknown Urine Color Yellow Urine Clarity Clear Urine pH 5.5 Urine Specific [place] >=1.030 Urine Protein 30 mg/dL (NEG-TRACE) Urine Glucose (UA) >=1000 mg/dL (NEG) Urine Ketones (Stick) 40 mg/dL (NEG) Urine Blood Large (NEG) Urine Nitrite Negative (NEG) Urine Bilirubin Negative (NEG) Urine Urobilinogen Dipstick 0.2 mg/dL (0.2 mg/dL) Urine Leukocyte Esterase Negative (NEG) Urine RBC 20-40 /HPF (0-2) Urine WBC 1-4 /HPF (0-4) Urine Squamous Epithelial Cells Mod /LPF Urine Bacteria Few /HPF (0-FEW) Urine Hyaline Casts Moderate /HPF Urine Mucus Slight /LPF Urine Trichomonas Present Gastric Fluid Occult Blood Positive (NEG) Urine Opiates Screen Neg (NEG) Urine Methadone Screen Neg (NEG) Urine Barbiturates Neg (NEG) Urine Phencyclidine Screen Neg (NEG) Urine Amphetamine/Methamphetamine Neg (NEG) Urine Benzodiazepines Screen Neg (NEG) Urine Cocaine Screen Neg (NEG) Urine Cannabinoids Screen Pos (NEG) Urine Ethyl Alcohol Neg (NEG) White Blood Count 16.0 x10^3/uL (4.0-11.0) Red Blood Count 4.23 x10^6/uL (3.50-5.40) Hemoglobin 12.4 g/dL (12.0-15.5) Hematocrit 38.0 % (36.0-47.0) Mean Corpuscular Volume 90 fL (79-100) Mean Corpuscular Hemoglobin 29 pg (25-35) Mean Corpuscular Hemoglobin Concent 33 g/dL (31-37) Red Cell Distribution Width 13.9 % (11.5-14.5) Platelet Count 334 x10^3/uL (140-400) Neutrophils (%) (Auto) 81 % (31-73) Lymphocytes (%) (Auto) 17 % (24-48) Monocytes (%) (Auto) 2 % (0-9) Eosinophils (%) (Auto) 0 % (0-3) Basophils (%) (Auto) 0 % (0-3) Neutrophils # (Auto) 12.9 x10^3/uL (1.8-7.7) Lymphocytes # (Auto) 2.7 x10^3/uL (1.0-4.8) Monocytes # (Auto) 0.3 x10^3/uL (0.0-1.1) Eosinophils # (Auto) 0.0 x10^3/uL (0.0-0.7) Basophils # (Auto) 0.0 x10^3/uL (0.0-0.2) Segmented Neutrophils % 81 % (35-66) Band Neutrophils % 1 % (0-9) Lymphocytes % 16 % (24-48) Monocytes % 2 % (0-10) Platelet Estimate Adequate (ADEQUATE) Prothrombin Time 12.6 SEC (11.7-14.0) Prothromb Time International Ratio 1.0 (0.8-1.1) Sodium Level 133 mmol/L (136-145) Potassium Level 3.8 mmol/L (3.5-5.1) Chloride Level 91 mmol/L (98-107) Carbon Dioxide Level 22 mmol/L (21-32) Anion Gap 20 (6-14) Blood Urea Nitrogen 11 mg/dL (7-20) Creatinine 0.9 mg/dL (0.6-1.0) Estimated GFR (Cockcroft-Gault) 82.7 BUN/Creatinine Ratio 12 (6-20) Glucose Level 473 mg/dL (70-99) Lactic Acid Level 1.7 mmol/L (0.4-2.0) Calcium Level 10.1 mg/dL (8.5-10.1) Magnesium Level 2.1 mg/dL (1.8-2.4) Total Bilirubin 0.7 mg/dL (0.2-1.0) Aspartate Amino Transf (AST/SGOT) 14 U/L (15-37) Alanine Aminotransferase (ALT/SGPT) 20 U/L (14-59) Alkaline Phosphatase 145 U/L (46-116) Troponin I Quantitative < 0.017 ng/mL (0.000-0.055) Total Protein 8.8 g/dL (6.4-8.2) Albumin 4.4 g/dL (3.4-5.0) Albumin/Globulin Ratio 1.0 (1.0-1.7) Lipase 74 U/L (73-393) Acetone Level Sm pos (NEG) O2 Saturation 97 % (92-99) Arterial Blood pH 7.44 (7.35-7.45) Arterial Blood pCO2 at Patient Temp 32 mmHg (35-46) Arterial Blood pO2 at Patient Temp 92 mmHg (75-108) Arterial Blood HCO3 21 mmol/L (21-28) Arterial Blood Base Excess -2 mmol/L (-3-3) FiO2 21 Test 10/19/19 17:34 10/19/19 22:05 10/20/19 07:31 Glucose (Fingerstick) 259 mg/dL (70-99) 246 mg/dL (70-99) 403 mg/dL (70-99) Medications Current Medications Ondansetron HCl (Zofran) 4 mg STK-MED ONCE .ROUTE ; Start 10/19/19 at 12:48; Stop 10/19/19 at 12:49; Status DC Sodium Chloride 1,000 ml @ 1,000 mls/hr Q1H IV Last administered on 10/19/19at 13:47; Start 10/19/19 at 12:49; Stop 10/19/19 at 13:48; Status DC Ondansetron HCl (Zofran) 4 mg 1X ONCE IV Last administered on 10/19/19at 13:46; Start 10/19/19 at 13:30; Stop 10/19/19 at 13:31; Status DC Lorazepam (Ativan Inj) 1 mg 1X ONCE IVP ; Start 10/19/19 at 13:30; Stop 10/19/19 at 13:31; Status DC Insulin Human Regular (HumuLIN R VIAL) 10 unit 1X ONCE IV Last administered on 10/19/19at 15:33; Start 10/19/19 at 14:30; Stop 10/19/19 at 14:31; Status DC Sodium Chloride 1,000 ml @ 1,000 mls/hr 1X ONCE IV Last administered on 10/19/19at 15:33; Start 10/19/19 at 14:30; Stop 10/19/19 at 15:29; Status DC Pantoprazole Sodium (PROTONIX VIAL for IV PUSH) 40 mg 1X ONCE IVP Last administered on 10/19/19at 15:32; Start 10/19/19 at 15:15; Stop 10/19/19 at 15:16; Status DC Ondansetron HCl (Zofran) 4 mg PRN Q8HRS PRN IV NAUSEA/VOMITING; Start 10/19/19 at 15:45; Stop 10/19/19 at 20:00; Status DC Sodium Chloride 1,000 ml @ 150 mls/hr Q6H40M IV Last administered on 10/20/19at 05:02; Start 10/19/19 at 15:42; Stop 10/20/19 at 15:41 Dextrose (Dextrose 50%-Water Syringe) 12.5 gm PRN Q15MIN PRN IV SEE COMMENTS; Start 10/19/19 at 15:45 Ceftriaxone Sodium (Rocephin) 1 gm Q24H IVP Last administered on 10/19/19at 19:00; Start 10/19/19 at 17:00 Diphenhydramine HCl (Benadryl) 25 mg 1X ONCE IVP Last administered on 10/19/19at 16:40; Start 10/19/19 at 16:15; Stop 10/19/19 at 16:16; Status DC Pantoprazole Sodium 80 mg/ Sodium Chloride 100 ml @ 10 mls/hr Q10H IV Last administered on 10/20/19at 02:43; Start 10/19/19 at 17:00 Fentanyl Citrate (Fentanyl 2ml Vial) 50 mcg 1X ONCE IVP ; Start 10/19/19 at 17:00; Stop 10/19/19 at 17:01; Status DC Lorazepam (Ativan Inj) 1 mg 1X ONCE IVP Last administered on 10/19/19at 23:25; Start 10/19/19 at 23:45; Stop 10/19/19 at 23:46; Status DC Diphenhydramine HCl (Benadryl) 12.5 mg PRN Q6HRS PRN IVP ITCHING Last administered on 10/20/19at 06:05; Start 10/20/19 at 00:15 Hydralazine HCl (Apresoline Inj) 10 mg PRN Q6HRS PRN IVP ELEVATED BP, SBP>170 Last administered on 10/20/19at 00:18; Start 10/20/19 at 00:15 Lorazepam (Ativan Inj) 0.5 mg PRN Q4HRS PRN IVP ANXIETY / AGITATION; Start 10/20/19 at 00:15 Ondansetron HCl (Zofran) 4 mg PRN Q6HRS PRN IVP NAUSEA/VOMITING 1ST CHOICE Last administered on 10/20/19at 05:36; Start 10/20/19 at 05:30 Insulin Human Lispro (HumaLOG) 0-7 UNITS TIDWMEALS SQ ; Start 10/20/19 at 08:30 Dextrose (Dextrose 50%-Water Syringe) 12.5 gm PRN Q15MIN PRN IV SEE COMMENTS; Start 10/20/19 at 08:15 Active Scripts Active Doxycycline Monohydrate 100 Mg Capsule 1 Cap PO BID 7 Days Pantoprazole Sodium (Pantoprazole Sodium) 40 Mg Tablet.dr 40 Mg PO DAILYAC 30 Days Metformin Hcl 500 Mg Tablet 500 Mg PO BIDWMEALS 30 Days Levemir (Insulin Detemir) 100 Unit/1 Ml Vial 18 Unit SQ BID 30 Days Lisinopril 5 Mg Tablet 1 Tab PO DAILY Levemir (Insulin Detemir) 100 Unit/1 Ml Vial 30 Unit SQ QHS 30 Days Vitals/I & O Vital Sign - Last 24 Hours 10/19/19 10/19/19 10/19/19 10/19/19 12:39 19:43 19:45 23:50 Temp 98.3 99.2 98.0 98.3 99.2 98.0 Pulse 131 118 127 Resp 22 17 17 B/P (MAP) 183/129 (147) 135/66 (89) 184/104 (130) Pulse Ox 96 95 98 O2 Delivery Room Air Room Air Room Air Room Air 10/20/19 10/20/19 10/20/19 00:18 03:50 07:00 Temp 98.8 99.4 98.8 99.4 Pulse 132 125 107 Resp 18 16 B/P (MAP) 193/115 176/86 (116) 107/65 (79) Pulse Ox 96 94 O2 Delivery Room Air Room Air Intake and Output 10/19/19 10/19/19 10/20/19 15:00 23:00 07:00 Intake Total 2000 ml 0 ml Balance 2000 ml 0 ml ROLA GALO MD Oct 20, 2019 09:18
--- NOTE | 2019-10-20 09:53 | PDOC ---
Subjective: Subjective: Nausea but no vomiting. Lower abd is sore. Last stool was loose a couple days ago. Wants to know if she can go home. Has been NPO. Objective: Vital Signs: Vital Signs Date Time Temp Pulse Resp B/P (MAP) Pulse Ox O2 Delivery O2 Flow Rate FiO2 10/20/19 07:00 99.4 107 16 107/65 (79) 94 Room Air 99.4 Labs: Laboratory Tests Test 10/19/19 12:47 10/19/19 13:00 10/19/19 14:00 10/19/19 14:45 Bedside Urine HCG, Qualitative Hcg negative Urine Collection Type Unknown Urine Color Yellow Urine Clarity Clear Urine pH 5.5 Urine Specific [place] >=1.030 Urine Protein 30 mg/dL Urine Glucose (UA) >=1000 mg/dL Urine Ketones (Stick) 40 mg/dL Urine Blood Large Urine Nitrite Negative Urine Bilirubin Negative Urine Urobilinogen Dipstick 0.2 mg/dL Urine Leukocyte Esterase Negative Urine RBC 20-40 /HPF Urine WBC 1-4 /HPF Urine Squamous Epithelial Cells Mod /LPF Urine Bacteria Few /HPF Urine Hyaline Casts Moderate /HPF Urine Mucus Slight /LPF Urine Trichomonas Present Gastric Fluid Occult Blood Positive Urine Opiates Screen Neg Urine Methadone Screen Neg Urine Barbiturates Neg Urine Phencyclidine Screen Neg Urine Amphetamine/Methamphetamine Neg Urine Benzodiazepines Screen Neg Urine Cocaine Screen Neg Urine Cannabinoids Screen Pos Urine Ethyl Alcohol Neg White Blood Count 16.0 x10^3/uL Red Blood Count 4.23 x10^6/uL Hemoglobin 12.4 g/dL Hematocrit 38.0 % Mean Corpuscular Volume 90 fL Mean Corpuscular Hemoglobin 29 pg Mean Corpuscular Hemoglobin Concent 33 g/dL Red Cell Distribution Width 13.9 % Platelet Count 334 x10^3/uL Neutrophils (%) (Auto) 81 % Lymphocytes (%) (Auto) 17 % Monocytes (%) (Auto) 2 % Eosinophils (%) (Auto) 0 % Basophils (%) (Auto) 0 % Neutrophils # (Auto) 12.9 x10^3/uL Lymphocytes # (Auto) 2.7 x10^3/uL Monocytes # (Auto) 0.3 x10^3/uL Eosinophils # (Auto) 0.0 x10^3/uL Basophils # (Auto) 0.0 x10^3/uL Segmented Neutrophils % 81 % Band Neutrophils % 1 % Lymphocytes % 16 % Monocytes % 2 % Platelet Estimate Adequate Prothrombin Time 12.6 SEC Prothromb Time International Ratio 1.0 Sodium Level 133 mmol/L Potassium Level 3.8 mmol/L Chloride Level 91 mmol/L Carbon Dioxide Level 22 mmol/L Anion Gap 20 Blood Urea Nitrogen 11 mg/dL Creatinine 0.9 mg/dL Estimated GFR (Cockcroft-Gault) 82.7 BUN/Creatinine Ratio 12 Glucose Level 473 mg/dL Lactic Acid Level 1.7 mmol/L Calcium Level 10.1 mg/dL Magnesium Level 2.1 mg/dL Total Bilirubin 0.7 mg/dL Aspartate Amino Transf (AST/SGOT) 14 U/L Alanine Aminotransferase (ALT/SGPT) 20 U/L Alkaline Phosphatase 145 U/L Troponin I Quantitative < 0.017 ng/mL Total Protein 8.8 g/dL Albumin 4.4 g/dL Albumin/Globulin Ratio 1.0 Lipase 74 U/L Acetone Level Sm pos O2 Saturation 97 % Arterial Blood pH 7.44 Arterial Blood pCO2 at Patient Temp 32 mmHg Arterial Blood pO2 at Patient Temp 92 mmHg Arterial Blood HCO3 21 mmol/L Arterial Blood Base Excess -2 mmol/L FiO2 21 Test 10/19/19 17:34 10/19/19 22:05 10/20/19 07:31 Glucose (Fingerstick) 259 mg/dL 246 mg/dL 403 mg/dL Imaging: RUQ US Findings: Limited right upper quadrant ultrasound was performed. Mild fatty infiltration of the liver is present. Gallbladder is unremarkable with no cholelithiasis or findings of cholecystitis. Common bile duct is unremarkable. Portal venous flow is normal. No biliary dilatation. Proximal pancreas is normal. Distal pancreas is obscured by bowel gas. Right kidney measures 10 cm longitudinally. No right hydronephrosis. Normal right renal contour and echotexture. Inferior vena cava is unremarkable. No right upper quadrant ascites. Impression: Mild fatty infiltration of the liver. PE: GEN: NAD, walking around room, nurse and family present LUNGS: CTAB HEART: RRR ABD: tender RLQ to suprapubic to LLQ - ?MSK NEURO/PSYCH: A & O 3 A/P: N/v Leukocytosis Hepatic steatosis DM - last A1c >11 +cannabinoids -- Try clears, change to PO PPI. If tolerates diet, could consider DC w/ possible outpt EGD and/or GES. CARI ROTHMAN Oct 20, 2019 09:53
[2019-10-20 11:00] VITALS: BP_SYST 180; BP_SYST 204; BP_DIAS 112; BP_DIAS 120
[2019-10-20 12:02] VITALS: BP 155/73
--- NOTE | 2019-10-20 14:08 | NUR ---
SS following for discharge planning. SS reviewed pt chart. Pt is from home and is currently on room air. SS will continue to follow for discharge planning.
[2019-10-20] MEDS ORDERED: METF500T16 PO (14:54)
[2019-10-20] MEDS ORDERED: INSU100I27 SQ (14:54)
[2019-10-20] MEDS ORDERED: AMLO10TA8 PO (14:54)
[2019-10-20] MEDS ORDERED: LOSA-73 PO (14:54)
[2019-10-20] MEDS ORDERED: GABA800T5 PO (14:54)
[2019-10-20 15:00] VITALS: BP 151/97
[2019-10-20] MEDS ORDERED: LISINOPRIL 5 MG TABLET. PO SCH (15:00)
[2019-10-20 15:25] LABS: BASO # 0.2 x10^3/uL (0.0-0.2); BASO % 1 % (0-3); EOS % 0 % (0-3); HEMATOCRIT 35.8 % (36.0-47.0); LYMPH # 3.8 x10^3/uL (1.0-4.8); LYMPH % 27 % (24-48); MEAN CORPUSCULAR HEMOGLOBIN 30 pg (25-35); MEAN CORPUSCULAR HGB CONC 33 g/dL (31-37); MEAN CORPUSCULAR VOLUME 89 fL (79-100); MONO # 0.7 x10^3/uL (0.0-1.1); MONO % 5 % (0-9); NEUT # 9.4 x10^3/uL (1.8-7.7); NEUT % 67 % (31-73); PLATELET COUNT 310 x10^3/uL (140-400); RED BLOOD COUNT 4.04 x10^6/uL (3.50-5.40); RED CELL DISTRIBUTION WIDTH 14.1 % (11.5-14.5)
[2019-10-20 15:37] LABS: CALCIUM 9.2 mg/dL (8.5-10.1); CREATININE 0.7 mg/dL (0.6-1.0); POTASSIUM 3.3 mmol/L (3.5-5.1)
--- NOTE | 2019-10-20 16:30 | NUR ---
Midline Pre-Insertion Note Allergies and reactions NKDA INR 1.0 BUN 9 Cr 0.7 Platelets 310 Blood culture done n/a blood culture results n/a Order Verified yes Consent signed yes Previous Midline placement unknown Past Medical/Surgical history and current diagnosis reviewed yes Patient Medical /Surgical History Related to Midline placement Diabetes Special considerations for PICC line placement None PICC placement indication Poor peripheral intravenous access name of PICC Nurse Katie Gardner RN Addendum: 10/20/19 at 1704 by SARA GARDNER RN Amended: Links added.
--- NOTE | 2019-10-20 16:55 | NUR ---
Midline Insertion Note Procedure: Following complete explanation of the Midline procedure including the indications, risks, and potential complications, informed consent was obtained. The possibility for infection was discussed along with signs, symptoms, and prevention. All the questions were answered. Written and verbal patient education was provided. Hand hygiene performed. Standardized central line checklist was utilized. The patient was placed in the supine position, the arm was prepped with chlorhexidine and patient draped with maximum sterile barrier. 2 mL 1% lidocaine was infiltrated into the skin to provide local anesthesia. A thorough assessment of left upper extremity completed. Using real-time ultrasound guidance and standardized micro puncture set, the brachial vein was punctured and a peel away sheath was placed using the modified Seldinger technique. A tip location device was used to ensure adequate catheter placement. The catheter was secured using a securement device and an antimicrobial patch was applied directly on the insertion site followed by a transparent dressing. All ports withdraw blood and flush without resistance. Patient tolerated the procedure without apparent complication(s). Single Lumen Power Midline placement successful and uncomplicated. Tip located in the Left Axilla. Complications: none Catheter trimmed at 13cm with 0cm visible at insertion site.
[2019-10-20] MEDS ORDERED: INSULIN GLARGINE SYRINGE. SQ SCH ×3 (17:00→21:00)
[2019-10-20] MEDS ORDERED: metFORMIN 500 MG TABLET PO SCH (17:00)
[2019-10-20] MEDS: cefTRIAXone IV Push 1 GM VIAL. IVP SCH (17:08)
[2019-10-20 19:55] VITALS: BP 186/113
[2019-10-20] MEDS: GABAPENTIN 400 MG CAPSULE. PO SCH (20:18)
[2019-10-20] MEDS: LACTOBACILLUS RHAMNOSUS GG 1 CAPSULE. PO SCH (20:18)
[2019-10-20] MEDS ORDERED: INSULIN DETEMIR 30 UNIT SQ SCH (21:00)
[2019-10-20] MEDS: LOSARTAN POTASSIUM 25 MG TABLET. PO SCH (23:00)
[2019-10-20] MEDS: METOPROLOL TART IMMED RELEASE 25 MG TABLET. PO SCH (23:00)
[2019-10-21] VITALS (7 sets, daily range): BP systolic 77–172; BP diastolic 45–97
[2019-10-21] MEDS: hydrALAZINE 20 MG/ML VIAL. IVP PRN (03:43)
[2019-10-21 04:08] LABS: HEMOGLOBIN A1C 11.8 % (4.8-5.6)
--- NOTE | 2019-10-21 05:02 | NUR ---
at around 340 patient reported feeling unsteady, having pain in the left arm and intermittent chest pain. She also reported forgetfullness. blood pressure was 172/97.....hydralazine was given and pressure dropped to 137/79. stat EKG and Troponin labs were drawn. Patient stated that unsteady feeling and forgetfullness had started off and on 10 days ago.
[2019-10-21] MEDS: diphenhydrAMINE 50 MG/ML VIAL IVP PRN ×2 (05:09→22:34)
--- NOTE | 2019-10-21 05:20 | EKG ---
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
[2019-10-21] MEDS: ONDANSETRON PF 4 MG/2 ML VIAL. IVP PRN (06:18)
[2019-10-21] MEDS ORDERED: PANTOPRAZOLE 40 MG TABLET.DR. PO SCH (07:30)
--- NOTE | 2019-10-21 07:59 | NUR ---
0355-nurse arrived to rapid response call for patient that was complaining of a shooting sharp pain that goes down her left arm and sometimes to center chest. She was not in pain upon arrival of this nurse. "It comes and goes." This pain is not new per patient. VSS. 12 lead EKG obtained and troponin drawn. [address] elevation noted. Patient to remain on floor. Troponin negative.
[2019-10-21] MEDS ORDERED: LOSARTAN POTASSIUM 25 MG TABLET. PO SCH (09:00)
[2019-10-21] MEDS: LACTOBACILLUS RHAMNOSUS GG 1 CAPSULE. PO SCH ×2 (09:08→22:32)
[2019-10-21] MEDS: amLODIPine BESYLATE 10 MG TABLET PO SCH (09:09)
[2019-10-21] MEDS: GABAPENTIN 400 MG CAPSULE. PO SCH ×3 (09:10→22:32)
[2019-10-21] MEDS: METOPROLOL TART IMMED RELEASE 25 MG TABLET. PO SCH ×2 (09:10→21:00)
[2019-10-21] MEDS: LOSARTAN POTASSIUM 25 MG TABLET. PO SCH (09:10)
[2019-10-21] MEDS: INSULIN LISPRO 300 UNITS/3 ML VIAL. SQ SCH ×3 (09:15→18:04)
[2019-10-21] MEDS: LIDO:MAALOX 1:1 20 ML SINGLE DOSE. PO PRN ×2 (09:59→19:42)
--- NOTE | 2019-10-21 10:04 | PDOC ---
PROGRESS NOTES History of Present Illness History of Present Illness ASSESSMENT AND PLAN: Hyperglycemia, anion gap metabolic acidosis, leukocytosis, electrolyte disturbance hyponatremia. THC ABUSE DIABETES, UNCONTROLLED HTN UNCONTROLLED, improving Mild fatty infiltration of the liver. HX NONCOMPLIANCE MORBID OBESITY LEUKOCYTOSIS 10/21 rapid response overnight for chest and arm pain. Plan admit IV fluids, IV insulin, consult GI, replete electrolytes, empiric IV antibiotics, home meds, DVT prophylaxis. Full code CONTROL GLUCOSE. A1C IV HYDRALAZINE 10MG Q 4 HRS PRN BP SUPPORT lantus 16 units sq q hs 38 MIN PT exam, chart review, > 50% of time spent with exam, chart review, pt care coordination Vitals Vitals Vital Signs Date Time Temp Pulse Resp B/P (MAP) Pulse Ox O2 Delivery O2 Flow Rate FiO2 10/21/19 09:10 118 127/87 10/21/19 07:00 18 90 Room Air 10/21/19 03:45 98.4 98.4 Physical Exam Physical Exam MUSCULOSKELETAL: Well developed, well nourished, good range of motion ENDOCRINE: No thyromegaly was palpated LYMPHATICS: No cervical chain or axillary nodes were noted HEMATOPOIETIC: No bruising NECK: Supple, no JVD, no thyromegaly was noted. LUNGS: Clear to auscultation in all lung chen without rhonchi or wheezing. HEART: RRR, S1, S2 present. Peripheral pulses intact, no obvious murmurs were noted. ABDOMEN: Soft, nontender. She has decreased bowel sounds. No organomegaly, normal bowel sounds. EXTREMITIES: Without any cyanosis, clubbing, or edema. Pedal pulses intact, Homans sign is negative. NEUROLOGIC: Normal speech, normal tone. A & O x 3, moves all extremities, no obvious focal deficits. PSYCHIATRIC: Normal affect, normal mood. Stable. SKIN: No ulcerations or rashes, good skin turgor, no jaundice. VASCULAR: Good capillary refill, neurovascular bundle appears to be intact. LABORATORY DATA: Drug screen positive for cannabinoids. Urinalysis negative. INR is 1. Gastroccult positive. General: Alert, Oriented X3, Cooperative, No acute distress, mild distress Heart: Regular rate, Normal S1 Lungs: Clear Abdomen: Normal bowel sounds, Soft, No tenderness Extremities: No cyanosis, No edema Labs LABS Examination: ABDOMEN LTD History: Nausea and vomiting. Abdominal pain for 2 weeks. Comparison/Correlation: 06/01/2019 CT abdomen and pelvis without contrast Findings: Limited right upper quadrant ultrasound was performed. Mild fatty infiltration of the liver is present. Gallbladder is unremarkable with no cholelithiasis or findings of cholecystitis. Common bile duct is unremarkable. Portal venous flow is normal. No biliary dilatation. Proximal pancreas is normal. Distal pancreas is obscured by bowel gas. Right kidney measures 10 cm longitudinally. No right hydronephrosis. Normal right renal contour and echotexture. Inferior vena cava is unremarkable. No right upper quadrant ascites. Impression: Mild fatty infiltration of the liver. Electronically signed by: Maryanne Palm MD (10/19/2019 1:42 PM) [facility] DICTATED and SIGNED BY: MARYANNE PALM MD DATE: 10/19/19 1340 Laboratory Tests Test 10/20/19 10:04 10/20/19 11:53 10/20/19 15:10 10/20/19 15:23 Glucose (Fingerstick) 355 mg/dL (70-99) 280 mg/dL (70-99) 219 mg/dL (70-99) White Blood Count 14.0 x10^3/uL (4.0-11.0) Red Blood Count 4.04 x10^6/uL (3.50-5.40) Hemoglobin 12.0 g/dL (12.0-15.5) Hematocrit 35.8 % (36.0-47.0) Mean Corpuscular Volume 89 fL (79-100) Mean Corpuscular Hemoglobin 30 pg (25-35) Mean Corpuscular Hemoglobin Concent 33 g/dL (31-37) Red Cell Distribution Width 14.1 % (11.5-14.5) Platelet Count 310 x10^3/uL (140-400) Neutrophils (%) (Auto) 67 % (31-73) Lymphocytes (%) (Auto) 27 % (24-48) Monocytes (%) (Auto) 5 % (0-9) Eosinophils (%) (Auto) 0 % (0-3) Basophils (%) (Auto) 1 % (0-3) Neutrophils # (Auto) 9.4 x10^3/uL (1.8-7.7) Lymphocytes # (Auto) 3.8 x10^3/uL (1.0-4.8) Monocytes # (Auto) 0.7 x10^3/uL (0.0-1.1) Eosinophils # (Auto) 0.0 x10^3/uL (0.0-0.7) Basophils # (Auto) 0.2 x10^3/uL (0.0-0.2) Sodium Level 134 mmol/L (136-145) Potassium Level 3.3 mmol/L (3.5-5.1) Chloride Level 97 mmol/L (98-107) Carbon Dioxide Level 24 mmol/L (21-32) Anion Gap 13 (6-14) Blood Urea Nitrogen 9 mg/dL (7-20) Creatinine 0.7 mg/dL (0.6-1.0) Estimated GFR (Cockcroft-Gault) 110.0 Glucose Level 266 mg/dL (70-99) Hemoglobin A1c 11.8 % (4.8-5.6) Calcium Level 9.2 mg/dL (8.5-10.1) Test 10/20/19 20:58 10/21/19 03:56 10/21/19 04:40 10/21/19 07:36 Glucose (Fingerstick) 241 mg/dL (70-99) 186 mg/dL (70-99) 350 mg/dL (70-99) Troponin I Quantitative < 0.017 ng/mL (0.000-0.055) Assessment and Plan Assessmemt and Plan Problems Medical Problems: (1) GI bleeding Status: Acute (2) Intractable nausea and vomiting Status: Acute (3) Marijuana abuse Status: Acute Comment Review of Relevant I have reviewed the following items dary (where applicable) has been applied. Labs Laboratory Tests Test 10/19/19 12:47 10/19/19 13:00 10/19/19 14:00 10/19/19 14:45 Bedside Urine HCG, Qualitative Hcg negative (Negative) Urine Collection Type Unknown Urine Color Yellow Urine Clarity Clear Urine pH 5.5 Urine Specific [place] >=1.030 Urine Protein 30 mg/dL (NEG-TRACE) Urine Glucose (UA) >=1000 mg/dL (NEG) Urine Ketones (Stick) 40 mg/dL (NEG) Urine Blood Large (NEG) Urine Nitrite Negative (NEG) Urine Bilirubin Negative (NEG) Urine Urobilinogen Dipstick 0.2 mg/dL (0.2 mg/dL) Urine Leukocyte Esterase Negative (NEG) Urine RBC 20-40 /HPF (0-2) Urine WBC 1-4 /HPF (0-4) Urine Squamous Epithelial Cells Mod /LPF Urine Bacteria Few /HPF (0-FEW) Urine Hyaline Casts Moderate /HPF Urine Mucus Slight /LPF Urine Trichomonas Present Gastric Fluid Occult Blood Positive (NEG) Urine Opiates Screen Neg (NEG) Urine Methadone Screen Neg (NEG) Urine Barbiturates Neg (NEG) Urine Phencyclidine Screen Neg (NEG) Urine Amphetamine/Methamphetamine Neg (NEG) Urine Benzodiazepines Screen Neg (NEG) Urine Cocaine Screen Neg (NEG) Urine Cannabinoids Screen Pos (NEG) Urine Ethyl Alcohol Neg (NEG) White Blood Count 16.0 x10^3/uL (4.0-11.0) Red Blood Count 4.23 x10^6/uL (3.50-5.40) Hemoglobin 12.4 g/dL (12.0-15.5) Hematocrit 38.0 % (36.0-47.0) Mean Corpuscular Volume 90 fL (79-100) Mean Corpuscular Hemoglobin 29 pg (25-35) Mean Corpuscular Hemoglobin Concent 33 g/dL (31-37) Red Cell Distribution Width 13.9 % (11.5-14.5) Platelet Count 334 x10^3/uL (140-400) Neutrophils (%) (Auto) 81 % (31-73) Lymphocytes (%) (Auto) 17 % (24-48) Monocytes (%) (Auto) 2 % (0-9) Eosinophils (%) (Auto) 0 % (0-3) Basophils (%) (Auto) 0 % (0-3) Neutrophils # (Auto) 12.9 x10^3/uL (1.8-7.7) Lymphocytes # (Auto) 2.7 x10^3/uL (1.0-4.8) Monocytes # (Auto) 0.3 x10^3/uL (0.0-1.1) Eosinophils # (Auto) 0.0 x10^3/uL (0.0-0.7) Basophils # (Auto) 0.0 x10^3/uL (0.0-0.2) Segmented Neutrophils % 81 % (35-66) Band Neutrophils % 1 % (0-9) Lymphocytes % 16 % (24-48) Monocytes % 2 % (0-10) Platelet Estimate Adequate (ADEQUATE) Prothrombin Time 12.6 SEC (11.7-14.0) Prothromb Time International Ratio 1.0 (0.8-1.1) Sodium Level 133 mmol/L (136-145) Potassium Level 3.8 mmol/L (3.5-5.1) Chloride Level 91 mmol/L (98-107) Carbon Dioxide Level 22 mmol/L (21-32) Anion Gap 20 (6-14) Blood Urea Nitrogen 11 mg/dL (7-20) Creatinine 0.9 mg/dL (0.6-1.0) Estimated GFR (Cockcroft-Gault) 82.7 BUN/Creatinine Ratio 12 (6-20) Glucose Level 473 mg/dL (70-99) Lactic Acid Level 1.7 mmol/L (0.4-2.0) Calcium Level 10.1 mg/dL (8.5-10.1) Magnesium Level 2.1 mg/dL (1.8-2.4) Total Bilirubin 0.7 mg/dL (0.2-1.0) Aspartate Amino Transf (AST/SGOT) 14 U/L (15-37) Alanine Aminotransferase (ALT/SGPT) 20 U/L (14-59) Alkaline Phosphatase 145 U/L (46-116) Troponin I Quantitative < 0.017 ng/mL (0.000-0.055) Total Protein 8.8 g/dL (6.4-8.2) Albumin 4.4 g/dL (3.4-5.0) Albumin/Globulin Ratio 1.0 (1.0-1.7) Lipase 74 U/L (73-393) Acetone Level Sm pos (NEG) O2 Saturation 97 % (92-99) Arterial Blood pH 7.44 (7.35-7.45) Arterial Blood pCO2 at Patient Temp 32 mmHg (35-46) Arterial Blood pO2 at Patient Temp 92 mmHg (75-108) Arterial Blood HCO3 21 mmol/L (21-28) Arterial Blood Base Excess -2 mmol/L (-3-3) FiO2 21 Test 10/19/19 17:34 10/19/19 22:05 10/20/19 07:31 10/20/19 10:04 Glucose (Fingerstick) 259 mg/dL (70-99) 246 mg/dL (70-99) 403 mg/dL (70-99) 355 mg/dL (70-99) Test 10/20/19 11:53 10/20/19 15:10 10/20/19 15:23 10/20/19 20:58 Glucose (Fingerstick) 280 mg/dL (70-99) 219 mg/dL (70-99) 241 mg/dL (70-99) White Blood Count 14.0 x10^3/uL (4.0-11.0) Red Blood Count 4.04 x10^6/uL (3.50-5.40) Hemoglobin 12.0 g/dL (12.0-15.5) Hematocrit 35.8 % (36.0-47.0) Mean Corpuscular Volume 89 fL (79-100) Mean Corpuscular Hemoglobin 30 pg (25-35) Mean Corpuscular Hemoglobin Concent 33 g/dL (31-37) Red Cell Distribution Width 14.1 % (11.5-14.5) Platelet Count 310 x10^3/uL (140-400) Neutrophils (%) (Auto) 67 % (31-73) Lymphocytes (%) (Auto) 27 % (24-48) Monocytes (%) (Auto) 5 % (0-9) Eosinophils (%) (Auto) 0 % (0-3) Basophils (%) (Auto) 1 % (0-3) Neutrophils # (Auto) 9.4 x10^3/uL (1.8-7.7) Lymphocytes # (Auto) 3.8 x10^3/uL (1.0-4.8) Monocytes # (Auto) 0.7 x10^3/uL (0.0-1.1) Eosinophils # (Auto) 0.0 x10^3/uL (0.0-0.7) Basophils # (Auto) 0.2 x10^3/uL (0.0-0.2) Sodium Level 134 mmol/L (136-145) Potassium Level 3.3 mmol/L (3.5-5.1) Chloride Level 97 mmol/L (98-107) Carbon Dioxide Level 24 mmol/L (21-32) Anion Gap 13 (6-14) Blood Urea Nitrogen 9 mg/dL (7-20) Creatinine 0.7 mg/dL (0.6-1.0) Estimated GFR (Cockcroft-Gault) 110.0 Glucose Level 266 mg/dL (70-99) Hemoglobin A1c 11.8 % (4.8-5.6) Calcium Level 9.2 mg/dL (8.5-10.1) Test 10/21/19 03:56 10/21/19 04:40 10/21/19 07:36 Glucose (Fingerstick) 186 mg/dL (70-99) 350 mg/dL (70-99) Troponin I Quantitative < 0.017 ng/mL (0.000-0.055) Laboratory Tests Test 10/20/19 10:04 10/20/19 11:53 10/20/19 15:10 10/20/19 15:23 Glucose (Fingerstick) 355 mg/dL (70-99) 280 mg/dL (70-99) 219 mg/dL (70-99) White Blood Count 14.0 x10^3/uL (4.0-11.0) Red Blood Count 4.04 x10^6/uL (3.50-5.40) Hemoglobin 12.0 g/dL (12.0-15.5) Hematocrit 35.8 % (36.0-47.0) Mean Corpuscular Volume 89 fL (79-100) Mean Corpuscular Hemoglobin 30 pg (25-35) Mean Corpuscular Hemoglobin Concent 33 g/dL (31-37) Red Cell Distribution Width 14.1 % (11.5-14.5) Platelet Count 310 x10^3/uL (140-400) Neutrophils (%) (Auto) 67 % (31-73) Lymphocytes (%) (Auto) 27 % (24-48) Monocytes (%) (Auto) 5 % (0-9) Eosinophils (%) (Auto) 0 % (0-3) Basophils (%) (Auto) 1 % (0-3) Neutrophils # (Auto) 9.4 x10^3/uL (1.8-7.7) Lymphocytes # (Auto) 3.8 x10^3/uL (1.0-4.8) Monocytes # (Auto) 0.7 x10^3/uL (0.0-1.1) Eosinophils # (Auto) 0.0 x10^3/uL (0.0-0.7) Basophils # (Auto) 0.2 x10^3/uL (0.0-0.2) Sodium Level 134 mmol/L (136-145) Potassium Level 3.3 mmol/L (3.5-5.1) Chloride Level 97 mmol/L (98-107) Carbon Dioxide Level 24 mmol/L (21-32) Anion Gap 13 (6-14) Blood Urea Nitrogen 9 mg/dL (7-20) Creatinine 0.7 mg/dL (0.6-1.0) Estimated GFR (Cockcroft-Gault) 110.0 Glucose Level 266 mg/dL (70-99) Hemoglobin A1c 11.8 % (4.8-5.6) Calcium Level 9.2 mg/dL (8.5-10.1) Test 10/20/19 20:58 10/21/19 03:56 10/21/19 04:40 10/21/19 07:36 Glucose (Fingerstick) 241 mg/dL (70-99) 186 mg/dL (70-99) 350 mg/dL (70-99) Troponin I Quantitative < 0.017 ng/mL (0.000-0.055) Medications Current Medications Ondansetron HCl (Zofran) 4 mg STK-MED ONCE .ROUTE ; Start 10/19/19 at 12:48; Stop 10/19/19 at 12:49; Status DC Sodium Chloride 1,000 ml @ 1,000 mls/hr Q1H IV Last administered on 10/19/19at 13:47; Start 10/19/19 at 12:49; Stop 10/19/19 at 13:48; Status DC Ondansetron HCl (Zofran) 4 mg 1X ONCE IV Last administered on 10/19/19at 13:46; Start 10/19/19 at 13:30; Stop 10/19/19 at 13:31; Status DC Lorazepam (Ativan Inj) 1 mg 1X ONCE IVP ; Start 10/19/19 at 13:30; Stop 10/19/19 at 13:31; Status DC Insulin Human Regular (HumuLIN R VIAL) 10 unit 1X ONCE IV Last administered on 10/19/19at 15:33; Start 10/19/19 at 14:30; Stop 10/19/19 at 14:31; Status DC Sodium Chloride 1,000 ml @ 1,000 mls/hr 1X ONCE IV Last administered on 10/19/19at 15:33; Start 10/19/19 at 14:30; Stop 10/19/19 at 15:29; Status DC Pantoprazole Sodium (PROTONIX VIAL for IV PUSH) 40 mg 1X ONCE IVP Last administered on 10/19/19at 15:32; Start 10/19/19 at 15:15; Stop 10/19/19 at 15:16; Status DC Ondansetron HCl (Zofran) 4 mg PRN Q8HRS PRN IV NAUSEA/VOMITING; Start 10/19/19 at 15:45; Stop 10/19/19 at 20:00; Status DC Sodium Chloride 1,000 ml @ 150 mls/hr Q6H40M IV Last administered on 10/20/19at 05:02; Start 10/19/19 at 15:42; Stop 10/20/19 at 15:41; Status DC Dextrose (Dextrose 50%-Water Syringe) 12.5 gm PRN Q15MIN PRN IV SEE COMMENTS; Start 10/19/19 at 15:45; Status Cancel Ceftriaxone Sodium (Rocephin) 1 gm Q24H IVP Last administered on 10/20/19at 17:08; Start 10/19/19 at 17:00 Diphenhydramine HCl (Benadryl) 25 mg 1X ONCE IVP Last administered on 10/19/19at 16:40; Start 10/19/19 at 16:15; Stop 10/19/19 at 16:16; Status DC Pantoprazole Sodium 80 mg/ Sodium Chloride 100 ml @ 10 mls/hr Q10H IV Last administered on 10/20/19at 02:43; Start 10/19/19 at 17:00; Stop 10/20/19 at 09:53; Status DC Fentanyl Citrate (Fentanyl 2ml Vial) 50 mcg 1X ONCE IVP ; Start 10/19/19 at 17:00; Stop 10/19/19 at 17:01; Status DC Lorazepam (Ativan Inj) 1 mg 1X ONCE IVP Last administered on 10/19/19at 23:25; Start 10/19/19 at 23:45; Stop 10/19/19 at 23:46; Status DC Diphenhydramine HCl (Benadryl) 12.5 mg PRN Q6HRS PRN IVP ITCHING Last administered on 10/21/19at 05:09; Start 10/20/19 at 00:15 Hydralazine HCl (Apresoline Inj) 10 mg PRN Q6HRS PRN IVP ELEVATED BP, SBP>170 Last administered on 10/20/19at 10:51; Start 10/20/19 at 00:15; Stop 10/20/19 at 14:16; Status DC Lorazepam (Ativan Inj) 0.5 mg PRN Q4HRS PRN IVP ANXIETY / AGITATION Last administered on 10/21/19at 09:18; Start 10/20/19 at 00:15 Ondansetron HCl (Zofran) 4 mg PRN Q6HRS PRN IVP NAUSEA/VOMITING 1ST CHOICE Last administered on 10/21/19at 06:18; Start 10/20/19 at 05:30 Insulin Human Lispro (HumaLOG) 0-7 UNITS TIDWMEALS SQ Last administered on 10/21/19at 09:15; Start 10/20/19 at 08:30 Dextrose (Dextrose 50%-Water Syringe) 12.5 gm PRN Q15MIN PRN IV SEE COMMENTS; Start 10/20/19 at 08:15 Pantoprazole Sodium (Protonix) 40 mg DAILYAC PO Last administered on 10/21/19at 09:09; Start 10/21/19 at 07:30 Lactobacillus Rhamnosus (Culturelle) 1 cap BID PO Last administered on 10/21/19at 09:08; Start 10/20/19 at 21:00 Lisinopril (Prinivil) 5 mg DAILY PO ; Start 10/20/19 at 15:00; Stop 10/20/19 at 16:07; Status DC Pantoprazole Sodium (Protonix) 40 mg DAILYAC PO ; Start 10/27/19 at 16:30; Stop 10/20/19 at 14:37; Status DC Insulin Glargine (Lantus Syringe) 18 unit BID SQ ; Start 10/20/19 at 21:00; Stop 10/20/19 at 16:07; Status DC Non-Formulary Medication (Insulin Detemir (Levemir)) 30 unit QHS SQ ; Start 10/20/19 at 21:00; Status UNV Hydralazine HCl (Apresoline Inj) 10 mg PRN Q4HRS PRN IVP ELEVATED BP, SEE COMMENTS Last administered on 10/21/19at 03:43; Start 10/20/19 at 14:15 Insulin Glargine (Lantus Syringe) 10 unit QHS SQ ; Start 10/20/19 at 21:00; Stop 10/20/19 at 14:39; Status DC Gabapentin (Neurontin) 800 mg TID PO Last administered on 10/21/19at 09:10; Start 10/20/19 at 21:00 Losartan Potassium (Cozaar) 25 mg DAILY PO ; Start 10/21/19 at 09:00; Stop 10/20/19 at 22:46; Status DC Amlodipine Besylate (Norvasc) 10 mg DAILY PO Last administered on 10/21/19at 09:09; Start 10/21/19 at 09:00 Metformin HCl (Glucophage) 500 mg BIDWMEALS PO ; Start 10/20/19 at 17:00; Stop 10/20/19 at 16:07; Status DC Insulin Glargine (Lantus Syringe) 10 unit DAILYWSUP SQ Last administered on 10/20/19at 17:48; Start 10/20/19 at 17:00 Losartan Potassium (Cozaar) 50 mg DAILY PO Last administered on 10/21/19at 09:10; Start 10/20/19 at 23:00 Metoprolol Tartrate (Lopressor) 25 mg BID PO Last administered on 10/21/19at 09:10; Start 10/20/19 at 23:00 Multi-Ingredient Mouthwash/Gargle (Gi Cocktail) 20 ml PRN QID PRN PO CHEST PAIN Last administered on 10/21/19at 09:59; Start 10/21/19 at 09:30 Active Scripts Active Doxycycline Monohydrate 100 Mg Capsule 1 Cap PO BID 7 Days Pantoprazole Sodium (Pantoprazole Sodium) 40 Mg Tablet.dr 40 Mg PO DAILYAC 30 Days Metformin Hcl 500 Mg Tablet 500 Mg PO BIDWMEALS 30 Days Levemir (Insulin Detemir) 100 Unit/1 Ml Vial 18 Unit SQ BID 30 Days Lisinopril 5 Mg Tablet 1 Tab PO DAILY Levemir (Insulin Detemir) 100 Unit/1 Ml Vial 30 Unit SQ QHS 30 Days Reported Levemir Flextouch (Insulin Detemir) 100 Unit/1 Ml Insuln.pen 10 Unit SQ DAILY Metformin Hcl 500 Mg Tablet 500 Mg PO BIDWMEALS Amlodipine Besylate 10 Mg Tablet 10 Mg PO DAILY Losartan Potassium 50 Mg Tablet 25 Mg PO DAILY Gabapentin 800 Mg Tablet 800 Mg PO TID Vitals/I & O Vital Sign - Last 24 Hours 10/20/19 10/20/19 10/20/19 10/20/19 10:51 11:00 12:02 15:00 Temp 98.9 98.4 98.7 98.9 98.4 98.7 Pulse 119 124 115 120 Resp 16 18 16 B/P (MAP) 180/120 204/112 (142) 155/73 (100) 151/97 (115) 180/120 (140) Pulse Ox 100 99 97 O2 Delivery Room Air Room Air Room Air 10/20/19 10/20/19 10/20/19 10/20/19 19:55 20:00 20:16 23:00 Temp 98.3 98.3 Pulse 117 117 101 Resp 16 16 B/P (MAP) 186/113 (137) 186/113 Pulse Ox 99 O2 Delivery Room Air Room Air Room Air 10/21/19 10/21/19 10/21/19 10/21/19 03:43 03:45 04:09 07:00 Temp 98.4 98.4 Pulse 122 122 126 118 Resp 18 18 B/P (MAP) 172/97 172/97 (122) 137/79 (98) 127/87 (100) Pulse Ox 97 90 O2 Delivery Room Air Room Air 10/21/19 10/21/19 10/21/19 09:09 09:10 09:10 Pulse 118 118 118 B/P (MAP) 127/87 127/87 127/87 Intake and Output 10/20/19 10/20/19 10/21/19 15:00 23:00 07:00 Intake Total 100 ml 240 ml 180 ml Output Total 400 ml 300 ml Balance -300 ml -60 ml 180 ml ROLA GALO MD Oct 21, 2019 10:04
--- NOTE | 2019-10-21 11:49 | PDOC ---
Subjective: Subjective: I saw her earlier this morning. Nausea, burning in chest and throat, can't eat, tired of this. Nurse present - gave okay to order GI cocktail. Pt then asked if she could go home today. Has not vomited. Objective: Objective: D/w nurse - was not complaining much before I came in. Reviewed chart - rapid response overnight for chest and arm pain. Abd US 10/19/19 Gallbladder is unremarkable with no cholelithiasis or findings of cholecystitis. Impression: Mild fatty infiltration of the liver. GES 05/2019 Impression: Time until half emptying for solids is 50 minutes which is not delayed. CT A/P 05/2019 IMPRESSION: No acute abdominal or pelvic abnormality. Vital Signs: Vital Signs Date Time Temp Pulse Resp B/P (MAP) Pulse Ox O2 Delivery O2 Flow Rate FiO2 10/21/19 09:10 118 127/87 10/21/19 07:00 18 90 Room Air 10/21/19 03:45 98.4 98.4 Labs: Laboratory Tests Test 10/20/19 11:53 10/20/19 15:10 10/20/19 15:23 10/20/19 20:58 Glucose (Fingerstick) 280 mg/dL 219 mg/dL 241 mg/dL White Blood Count 14.0 x10^3/uL Red Blood Count 4.04 x10^6/uL Hemoglobin 12.0 g/dL Hematocrit 35.8 % Mean Corpuscular Volume 89 fL Mean Corpuscular Hemoglobin 30 pg Mean Corpuscular Hemoglobin Concent 33 g/dL Red Cell Distribution Width 14.1 % Platelet Count 310 x10^3/uL Neutrophils (%) (Auto) 67 % Lymphocytes (%) (Auto) 27 % Monocytes (%) (Auto) 5 % Eosinophils (%) (Auto) 0 % Basophils (%) (Auto) 1 % Neutrophils # (Auto) 9.4 x10^3/uL Lymphocytes # (Auto) 3.8 x10^3/uL Monocytes # (Auto) 0.7 x10^3/uL Eosinophils # (Auto) 0.0 x10^3/uL Basophils # (Auto) 0.2 x10^3/uL Sodium Level 134 mmol/L Potassium Level 3.3 mmol/L Chloride Level 97 mmol/L Carbon Dioxide Level 24 mmol/L Anion Gap 13 Blood Urea Nitrogen 9 mg/dL Creatinine 0.7 mg/dL Estimated GFR (Cockcroft-Gault) 110.0 Glucose Level 266 mg/dL Hemoglobin A1c 11.8 % Calcium Level 9.2 mg/dL Test 10/21/19 03:56 10/21/19 04:40 10/21/19 07:36 10/21/19 11:29 Glucose (Fingerstick) 186 mg/dL 350 mg/dL 273 mg/dL Troponin I Quantitative < 0.017 ng/mL PE: GEN: sitting in chair, rocking back and forth LUNGS: room air HEART: tachycardic ABD: soft, non-distended, not particularly tender NEURO/PSYCH: A & O 3 A/P: Nausea, ?heartburn Leukocytosis - better Uncontrolled DM (A1c 11.8) +cannabinoids -- Try GI cocktail and IV PPI. Ongoing complaints, then asks to DC. Consider JASON. CARI ROTHMAN Oct 21, 2019 11:49
[2019-10-21] MEDS ORDERED: POTASSIUM CHLORIDE 20 MEQ TABLET.ER. PO ONE (13:15)
--- NOTE | 2019-10-21 14:05 | PDOC2 ---
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 Oglesby SOURCE Source: Chart review, Patient HISTORY OF PRESENT ILLNESS HISTORY OF PRESENT ILLNESS This is a 44 yo female who presented secondary to nausea and vomiting. Patient reports experiencing intermittent nausea/vomiting for 5-6 days. Developed burning sensations in her central chest. Last night had sharp shooting pain up her left arm the went into her chest. Rapid response was called. Pain improved with GI cocktail. Is worse following eating/drinking. No SOA, palpitations, dizziness, diaphoresis, or LE edema. Report she has had significant stressors recently and has not slept much over the last week. PAST MEDICAL HISTORY Cardiovascular: HTN Psych: Anxiety, Depression Endocrine: Diabetes PAST SURGICAL HISTORY Past Surgical History: No pertinent history FAMILY HISTORY Family History: Cancer (lung ), Stroke SOCIAL HISTORY Smoke: <1 pack per day ALCOHOL: none Drugs: Marijuana Lives: with Family CURRENT MEDICATIONS CURRENT MEDICATIONS Current Medications Medications (Trade) Dose Ordered Sig/Tina Route PRN Reason Start Time Stop Time Status Last Admin Dose Admin Pantoprazole Sodium (Protonix) 40 mg DAILYAC PO 10/21/19 07:30 10/21/19 11:49 DC 10/21/19 09:09 Lactobacillus Rhamnosus (Culturelle) 1 cap BID PO 10/20/19 21:00 10/21/19 09:08 Hydralazine HCl (Apresoline Inj) 10 mg PRN Q4HRS PRN IVP ELEVATED BP, SEE COMMENTS 10/20/19 14:15 10/21/19 03:43 Gabapentin (Neurontin) 800 mg TID PO 10/20/19 21:00 10/21/19 13:47 Amlodipine Besylate (Norvasc) 10 mg DAILY PO 10/21/19 09:00 10/21/19 09:09 Insulin Glargine (Lantus Syringe) 10 unit DAILYWSUP SQ 10/20/19 17:00 10/21/19 10:04 DC 10/20/19 17:48 Losartan Potassium (Cozaar) 50 mg DAILY PO 10/20/19 23:00 10/21/19 09:10 Metoprolol Tartrate (Lopressor) 25 mg BID PO 10/20/19 23:00 10/21/19 09:10 Multi-Ingredient Mouthwash/Gargle (Gi Cocktail) 20 ml PRN QID PRN PO CHEST PAIN 10/21/19 09:30 10/21/19 09:59 Potassium Chloride (Klor-Con) 40 meq 1X ONCE PO 10/21/19 13:15 10/21/19 13:18 DC 10/21/19 13:47 ALLERGIES ALLERGIES: Coded Allergies: No Known Drug Allergies (Unverified , 12/27/17) ROS Review of System 14 point ROS conducted with pertinent positives noted above in HPI PHYSICAL EXAM General: Alert, Oriented X3, Cooperative, No acute distress HEENT: Atraumatic, Mucous membr. moist/pink Lungs: Clear to auscultation Heart: Regular rate, Normal S1, Normal S2 Abdomen: Soft, No tenderness Extremities: No edema, Normal pulses Skin: No breakdown, No significant lesion Neuro: Normal speech, Sensation intact Psych/Mental Status: Mood NL MUSCULOSKELETAL: Osteoarthritic changes both hands VITALS/I&O VITALS/I&O: Vital Signs Date Time Temp Pulse Resp B/P (MAP) Pulse Ox O2 Delivery O2 Flow Rate FiO2 10/21/19 11:00 98.7 88 18 125/65 (85) 98 Room Air 98.7 I & O 10/20/19 10/20/19 10/21/19 15:00 23:00 07:00 Intake Total 100 ml 240 ml 180 ml Output Total 400 ml 300 ml Balance -300 ml -60 ml 180 ml LABS Lab: Laboratory Tests Test 10/20/19 15:10 10/20/19 15:23 10/20/19 20:58 10/21/19 03:56 White Blood Count 14.0 x10^3/uL (4.0-11.0) H Red Blood Count 4.04 x10^6/uL (3.50-5.40) Hemoglobin 12.0 g/dL (12.0-15.5) Hematocrit 35.8 % (36.0-47.0) L Mean Corpuscular Volume 89 fL (79-100) Mean Corpuscular Hemoglobin 30 pg (25-35) Mean Corpuscular Hemoglobin Concent 33 g/dL (31-37) Red Cell Distribution Width 14.1 % (11.5-14.5) Platelet Count 310 x10^3/uL (140-400) Neutrophils (%) (Auto) 67 % (31-73) Lymphocytes (%) (Auto) 27 % (24-48) Monocytes (%) (Auto) 5 % (0-9) Eosinophils (%) (Auto) 0 % (0-3) Basophils (%) (Auto) 1 % (0-3) Neutrophils # (Auto) 9.4 x10^3/uL (1.8-7.7) H Lymphocytes # (Auto) 3.8 x10^3/uL (1.0-4.8) Monocytes # (Auto) 0.7 x10^3/uL (0.0-1.1) Eosinophils # (Auto) 0.0 x10^3/uL (0.0-0.7) Basophils # (Auto) 0.2 x10^3/uL (0.0-0.2) Sodium Level 134 mmol/L (136-145) L Potassium Level 3.3 mmol/L (3.5-5.1) L Chloride Level 97 mmol/L (98-107) L Carbon Dioxide Level 24 mmol/L (21-32) Anion Gap 13 (6-14) Blood Urea Nitrogen 9 mg/dL (7-20) Creatinine 0.7 mg/dL (0.6-1.0) Estimated GFR (Cockcroft-Gault) 110.0 Glucose Level 266 mg/dL (70-99) H Hemoglobin A1c 11.8 % (4.8-5.6) H Calcium Level 9.2 mg/dL (8.5-10.1) Glucose (Fingerstick) 219 mg/dL (70-99) H 241 mg/dL (70-99) H 186 mg/dL (70-99) H Test 10/21/19 04:40 10/21/19 07:36 10/21/19 11:29 Troponin I Quantitative < 0.017 ng/mL (0.000-0.055) Glucose (Fingerstick) 350 mg/dL (70-99) H 273 mg/dL (70-99) H Laboratory Tests 10/20/19 15:10 Laboratory Tests 10/20/19 15:10 ECHOCARDIOGRAM ECHOCARDIOGRAM <Conclusion> The left ventricle is normal size. Left ventricle systolic function is normal. The Ejection Fraction is 55-60%. There is mild concentric left ventricular hypertrophy. There is no significant aortic valvular stenosis. Doppler and Color Flow revealed no significant aortic regurgitation. Doppler and Color-flow revealed trace mitral regurgitation. Doppler and Color Flow revealed trace tricuspid regurgitation. There is no evidence of significant pericardial effusion. DATE: 12/28/17 0936 ASSESSMENT/PLAN ASSESSMENT/PLAN 1. Persistent nausea/vomiting, gastroparesis. 2. GERD 3. Chest pain, noncardiac. GI in origin. Associated with eating/drinking. Relieved with GI cocktail. 4. Diabetes, II; uncontrolled. as per PCP 5. Hypertension 7. Marijuana use; discussed/encouraged cessation Recommendations Consider outpatient echo given risk factors Follow GI recs Supportive care DESTINI RITTER MD 10/21/19 1653: CARDIAC CONSULT ASSESSMENT/PLAN ASSESSMENT/PLAN Patient seen and examined. Agree with LANDMEN's assessment and plan. Chest pain with atypical features and most probably GI etiology. Myocardial infarction has been ruled out. Agree with 2-D echo and ischemic evaluation as an outpatient. Continue current workup per gastroenterology team. Thank you for your consultation. TRACE MACHADO APRN Oct 21, 2019 14:05 DESTINI RITTER MD Oct 21, 2019 16:53
[2019-10-21] MEDS: cefTRIAXone IV Push 1 GM VIAL. IVP SCH (17:46)
[2019-10-21] MEDS: PANTOPRAZOLE IV PUSH 40 MG VIAL. IVP SCH (17:47)
[2019-10-21] MEDS: INSULIN GLARGINE SYRINGE. SQ SCH (18:13)
[2019-10-22 03:50] VITALS: BP 120/76
[2019-10-22 05:31] LABS: BASO # 0.1 x10^3/uL (0.0-0.2); BASO % 1 % (0-3); EOS % 0 % (0-3); HEMATOCRIT 32.5 % (36.0-47.0); HEMOGLOBIN 10.6 g/dL (12.0-15.5); LYMPH # 3.7 x10^3/uL (1.0-4.8); LYMPH % 36 % (24-48); MEAN CORPUSCULAR HEMOGLOBIN 30 pg (25-35); MEAN CORPUSCULAR HGB CONC 33 g/dL (31-37); MEAN CORPUSCULAR VOLUME 91 fL (79-100); MONO # 0.8 x10^3/uL (0.0-1.1); MONO % 8 % (0-9); NEUT # 5.7 x10^3/uL (1.8-7.7); NEUT % 55 % (31-73); PLATELET COUNT 307 x10^3/uL (140-400); RED BLOOD COUNT 3.57 x10^6/uL (3.50-5.40); RED CELL DISTRIBUTION WIDTH 14.3 % (11.5-14.5); WHITE BLOOD COUNT 10.4 x10^3/uL (4.0-11.0)
[2019-10-22 07:58] VITALS: BP 143/86
[2019-10-22] MEDS: INSULIN LISPRO 300 UNITS/3 ML VIAL. SQ SCH ×3 (08:00→17:26)
[2019-10-22] MEDS: PANTOPRAZOLE IV PUSH 40 MG VIAL. IVP SCH (08:08)
[2019-10-22] MEDS ORDERED: INSULIN LISPRO 300 UNITS/3 ML VIAL. SQ ONE ×3 (08:17→12:15)
[2019-10-22] MEDS: INSULIN GLARGINE SYRINGE. SQ SCH ×2 (08:36→17:00)
[2019-10-22] MEDS: GABAPENTIN 400 MG CAPSULE. PO SCH ×3 (09:20→20:54)
[2019-10-22] MEDS: METOPROLOL TART IMMED RELEASE 25 MG TABLET. PO SCH ×2 (09:21→20:54)
[2019-10-22] MEDS: LOSARTAN POTASSIUM 25 MG TABLET. PO SCH (09:21)
[2019-10-22] MEDS: amLODIPine BESYLATE 10 MG TABLET PO SCH (09:26)
[2019-10-22 09:31] LABS: ALBUMIN 3.5 g/dL (3.4-5.0); ALBUMIN/GLOBULIN RATIO 0.9 (1.0-1.7); CREATININE 1.1 mg/dL (0.6-1.0); GFR 65.3; TOTAL BILIRUBIN 0.5 mg/dL (0.2-1.0); TOTAL PROTEIN 7.5 g/dL (6.4-8.2)
--- NOTE | 2019-10-22 09:53 | NUR ---
Patient blood sugar fasting was 492, DR. Oglesby was notified and orders for 10 units humalog and 16 units lantus insulin SQ and recheck patient blood sugar in one hour. Patient blood sugar recheck in one hour was 452 at 0923. Alesia from lab called and states patient with critical blood sugar 569 which was drawn at 0855. See critical documentation, orders and nursing communication.
[2019-10-22] MEDS: LACTOBACILLUS RHAMNOSUS GG 1 CAPSULE. PO SCH ×2 (10:03→20:54)
--- NOTE | 2019-10-22 10:11 | PDOC ---
Subjective: Subjective: Tolerating regular diet, wants to go home. GI cocktail helped yesterday. Objective: Objective: Nurse notes she hasn't stooled. D/w nurse yesterday - anxiety is a big issue. Vital Signs: Vital Signs Date Time Temp Pulse Resp B/P (MAP) Pulse Ox O2 Delivery O2 Flow Rate FiO2 10/22/19 09:26 102 143/86 10/22/19 07:58 97.9 18 100 Room Air 97.9 Labs: Laboratory Tests Test 10/21/19 11:29 10/21/19 14:40 10/21/19 17:02 10/21/19 21:15 Glucose (Fingerstick) 273 mg/dL 179 mg/dL 251 mg/dL Troponin I Quantitative < 0.017 ng/mL Test 10/22/19 05:15 10/22/19 07:50 10/22/19 08:55 10/22/19 09:23 White Blood Count 10.4 x10^3/uL Red Blood Count 3.57 x10^6/uL Hemoglobin 10.6 g/dL Hematocrit 32.5 % Mean Corpuscular Volume 91 fL Mean Corpuscular Hemoglobin 30 pg Mean Corpuscular Hemoglobin Concent 33 g/dL Red Cell Distribution Width 14.3 % Platelet Count 307 x10^3/uL Neutrophils (%) (Auto) 55 % Lymphocytes (%) (Auto) 36 % Monocytes (%) (Auto) 8 % Eosinophils (%) (Auto) 0 % Basophils (%) (Auto) 1 % Neutrophils # (Auto) 5.7 x10^3/uL Lymphocytes # (Auto) 3.7 x10^3/uL Monocytes # (Auto) 0.8 x10^3/uL Eosinophils # (Auto) 0.0 x10^3/uL Basophils # (Auto) 0.1 x10^3/uL Glucose (Fingerstick) 492 mg/dL 452 mg/dL Sodium Level 132 mmol/L Potassium Level 4.0 mmol/L Chloride Level 97 mmol/L Carbon Dioxide Level 25 mmol/L Anion Gap 10 Blood Urea Nitrogen 13 mg/dL Creatinine 1.1 mg/dL Estimated GFR (Cockcroft-Gault) 65.3 BUN/Creatinine Ratio 12 Glucose Level 564 mg/dL Calcium Level 9.0 mg/dL Total Bilirubin 0.5 mg/dL Aspartate Amino Transf (AST/SGOT) 14 U/L Alanine Aminotransferase (ALT/SGPT) 14 U/L Alkaline Phosphatase 99 U/L Total Protein 7.5 g/dL Albumin 3.5 g/dL Albumin/Globulin Ratio 0.9 PE: GEN: NAD - walking around room LUNGS: room air NEURO/PSYCH: A & O 3 A/P: Nausea, heartburn - resolved Uncontrolled DM - glucose >500 today +cannabinoids -- DC per primary - would send on PPI, can follow-up w/ GI as outpt. She might also like Rx for GI cocktail. CARI ROTHMAN Oct 22, 2019 10:11
[2019-10-22] MEDS ORDERED: BISACODYL 5 MG TABLET.DR. PO ONE (10:15)
[2019-10-22] MEDS ORDERED: POLYETHYLENE GLYCOL 3350 17 GM PACKET. PO PRN (10:15)
[2019-10-22 11:14] VITALS: BP 146/88
[2019-10-22] MEDS: diphenhydrAMINE 50 MG/ML VIAL IVP PRN ×2 (12:32→19:36)
--- NOTE | 2019-10-22 13:35 | PDOC ---
PROGRESS NOTES History of Present Illness History of Present Illness ASSESSMENT AND PLAN: Hyperglycemia, anion gap metabolic acidosis, leukocytosis, electrolyte disturbance hyponatremia. THC ABUSE DIABETES, UNCONTROLLED HTN UNCONTROLLED, improving Mild fatty infiltration of the liver. HX NONCOMPLIANCE MORBID OBESITY LEUKOCYTOSIS 10/21 rapid response overnight for chest and arm pain. 10/22 SUSPECT SHE IS NONCOMPLIANT WITH ADA DIET Plan admit IV fluids, IV insulin, consult GI, replete electrolytes, empiric IV antibiotics, home meds, DVT prophylaxis. Full code CONTROL GLUCOSE. A1C IV HYDRALAZINE 10MG Q 4 HRS PRN BP SUPPORT lantus 16 units sq BID 28 MIN PT exam, chart review, > 50% of time spent with exam, chart review, pt care coordination Vitals Vitals Vital Signs Date Time Temp Pulse Resp B/P (MAP) Pulse Ox O2 Delivery O2 Flow Rate FiO2 10/22/19 11:14 97.9 89 18 146/88 (107) 96 Room Air 97.9 Physical Exam Physical Exam MUSCULOSKELETAL: Well developed, well nourished, good range of motion ENDOCRINE: No thyromegaly was palpated LYMPHATICS: No cervical chain or axillary nodes were noted HEMATOPOIETIC: No bruising NECK: Supple, no JVD, no thyromegaly was noted. LUNGS: Clear to auscultation in all lung chen without rhonchi or wheezing. HEART: RRR, S1, S2 present. Peripheral pulses intact, no obvious murmurs were noted. ABDOMEN: Soft, nontender. She has decreased bowel sounds. No organomegaly, normal bowel sounds. EXTREMITIES: Without any cyanosis, clubbing, or edema. Pedal pulses intact, Homans sign is negative. NEUROLOGIC: Normal speech, normal tone. A & O x 3, moves all extremities, no obvious focal deficits. PSYCHIATRIC: Normal affect, normal mood. Stable. SKIN: No ulcerations or rashes, good skin turgor, no jaundice. VASCULAR: Good capillary refill, neurovascular bundle appears to be intact. LABORATORY DATA: Drug screen positive for cannabinoids. Urinalysis negative. INR is 1. Gastroccult positive. General: Alert, Oriented X3, Cooperative, No acute distress Heart: Regular rate, Normal S1, Normal S2 Lungs: Clear Abdomen: Soft, No tenderness Extremities: No edema, Normal pulses Skin: No breakdown, No significant lesion Labs LABS Laboratory Tests Test 10/21/19 14:40 10/21/19 17:02 10/21/19 21:15 10/22/19 05:15 Troponin I Quantitative < 0.017 ng/mL (0.000-0.055) Glucose (Fingerstick) 179 mg/dL (70-99) 251 mg/dL (70-99) White Blood Count 10.4 x10^3/uL (4.0-11.0) Red Blood Count 3.57 x10^6/uL (3.50-5.40) Hemoglobin 10.6 g/dL (12.0-15.5) Hematocrit 32.5 % (36.0-47.0) Mean Corpuscular Volume 91 fL (79-100) Mean Corpuscular Hemoglobin 30 pg (25-35) Mean Corpuscular Hemoglobin Concent 33 g/dL (31-37) Red Cell Distribution Width 14.3 % (11.5-14.5) Platelet Count 307 x10^3/uL (140-400) Neutrophils (%) (Auto) 55 % (31-73) Lymphocytes (%) (Auto) 36 % (24-48) Monocytes (%) (Auto) 8 % (0-9) Eosinophils (%) (Auto) 0 % (0-3) Basophils (%) (Auto) 1 % (0-3) Neutrophils # (Auto) 5.7 x10^3/uL (1.8-7.7) Lymphocytes # (Auto) 3.7 x10^3/uL (1.0-4.8) Monocytes # (Auto) 0.8 x10^3/uL (0.0-1.1) Eosinophils # (Auto) 0.0 x10^3/uL (0.0-0.7) Basophils # (Auto) 0.1 x10^3/uL (0.0-0.2) Test 10/22/19 07:50 10/22/19 08:55 10/22/19 09:23 10/22/19 10:37 Glucose (Fingerstick) 492 mg/dL (70-99) 452 mg/dL (70-99) 287 mg/dL (70-99) Sodium Level 132 mmol/L (136-145) Potassium Level 4.0 mmol/L (3.5-5.1) Chloride Level 97 mmol/L (98-107) Carbon Dioxide Level 25 mmol/L (21-32) Anion Gap 10 (6-14) Blood Urea Nitrogen 13 mg/dL (7-20) Creatinine 1.1 mg/dL (0.6-1.0) Estimated GFR (Cockcroft-Gault) 65.3 BUN/Creatinine Ratio 12 (6-20) Glucose Level 564 mg/dL (70-99) Calcium Level 9.0 mg/dL (8.5-10.1) Total Bilirubin 0.5 mg/dL (0.2-1.0) Aspartate Amino Transf (AST/SGOT) 14 U/L (15-37) Alanine Aminotransferase (ALT/SGPT) 14 U/L (14-59) Alkaline Phosphatase 99 U/L (46-116) Total Protein 7.5 g/dL (6.4-8.2) Albumin 3.5 g/dL (3.4-5.0) Albumin/Globulin Ratio 0.9 (1.0-1.7) Assessment and Plan Assessmemt and Plan Problems Medical Problems: (1) GI bleeding Status: Acute (2) Intractable nausea and vomiting Status: Acute (3) Marijuana abuse Status: Acute Comment Review of Relevant I have reviewed the following items dary (where applicable) has been applied. Labs Laboratory Tests Test 10/20/19 15:10 10/20/19 15:23 10/20/19 20:58 10/21/19 03:56 White Blood Count 14.0 x10^3/uL (4.0-11.0) Red Blood Count 4.04 x10^6/uL (3.50-5.40) Hemoglobin 12.0 g/dL (12.0-15.5) Hematocrit 35.8 % (36.0-47.0) Mean Corpuscular Volume 89 fL (79-100) Mean Corpuscular Hemoglobin 30 pg (25-35) Mean Corpuscular Hemoglobin Concent 33 g/dL (31-37) Red Cell Distribution Width 14.1 % (11.5-14.5) Platelet Count 310 x10^3/uL (140-400) Neutrophils (%) (Auto) 67 % (31-73) Lymphocytes (%) (Auto) 27 % (24-48) Monocytes (%) (Auto) 5 % (0-9) Eosinophils (%) (Auto) 0 % (0-3) Basophils (%) (Auto) 1 % (0-3) Neutrophils # (Auto) 9.4 x10^3/uL (1.8-7.7) Lymphocytes # (Auto) 3.8 x10^3/uL (1.0-4.8) Monocytes # (Auto) 0.7 x10^3/uL (0.0-1.1) Eosinophils # (Auto) 0.0 x10^3/uL (0.0-0.7) Basophils # (Auto) 0.2 x10^3/uL (0.0-0.2) Sodium Level 134 mmol/L (136-145) Potassium Level 3.3 mmol/L (3.5-5.1) Chloride Level 97 mmol/L (98-107) Carbon Dioxide Level 24 mmol/L (21-32) Anion Gap 13 (6-14) Blood Urea Nitrogen 9 mg/dL (7-20) Creatinine 0.7 mg/dL (0.6-1.0) Estimated GFR (Cockcroft-Gault) 110.0 Glucose Level 266 mg/dL (70-99) Hemoglobin A1c 11.8 % (4.8-5.6) Calcium Level 9.2 mg/dL (8.5-10.1) Glucose (Fingerstick) 219 mg/dL (70-99) 241 mg/dL (70-99) 186 mg/dL (70-99) Test 10/21/19 04:40 10/21/19 07:36 10/21/19 11:29 10/21/19 14:40 Troponin I Quantitative < 0.017 ng/mL (0.000-0.055) < 0.017 ng/mL (0.000-0.055) Glucose (Fingerstick) 350 mg/dL (70-99) 273 mg/dL (70-99) Test 10/21/19 17:02 10/21/19 21:15 10/22/19 05:15 10/22/19 07:50 Glucose (Fingerstick) 179 mg/dL (70-99) 251 mg/dL (70-99) 492 mg/dL (70-99) White Blood Count 10.4 x10^3/uL (4.0-11.0) Red Blood Count 3.57 x10^6/uL (3.50-5.40) Hemoglobin 10.6 g/dL (12.0-15.5) Hematocrit 32.5 % (36.0-47.0) Mean Corpuscular Volume 91 fL (79-100) Mean Corpuscular Hemoglobin 30 pg (25-35) Mean Corpuscular Hemoglobin Concent 33 g/dL (31-37) Red Cell Distribution Width 14.3 % (11.5-14.5) Platelet Count 307 x10^3/uL (140-400) Neutrophils (%) (Auto) 55 % (31-73) Lymphocytes (%) (Auto) 36 % (24-48) Monocytes (%) (Auto) 8 % (0-9) Eosinophils (%) (Auto) 0 % (0-3) Basophils (%) (Auto) 1 % (0-3) Neutrophils # (Auto) 5.7 x10^3/uL (1.8-7.7) Lymphocytes # (Auto) 3.7 x10^3/uL (1.0-4.8) Monocytes # (Auto) 0.8 x10^3/uL (0.0-1.1) Eosinophils # (Auto) 0.0 x10^3/uL (0.0-0.7) Basophils # (Auto) 0.1 x10^3/uL (0.0-0.2) Test 10/22/19 08:55 10/22/19 09:23 10/22/19 10:37 Sodium Level 132 mmol/L (136-145) Potassium Level 4.0 mmol/L (3.5-5.1) Chloride Level 97 mmol/L (98-107) Carbon Dioxide Level 25 mmol/L (21-32) Anion Gap 10 (6-14) Blood Urea Nitrogen 13 mg/dL (7-20) Creatinine 1.1 mg/dL (0.6-1.0) Estimated GFR (Cockcroft-Gault) 65.3 BUN/Creatinine Ratio 12 (6-20) Glucose Level 564 mg/dL (70-99) Calcium Level 9.0 mg/dL (8.5-10.1) Total Bilirubin 0.5 mg/dL (0.2-1.0) Aspartate Amino Transf (AST/SGOT) 14 U/L (15-37) Alanine Aminotransferase (ALT/SGPT) 14 U/L (14-59) Alkaline Phosphatase 99 U/L (46-116) Total Protein 7.5 g/dL (6.4-8.2) Albumin 3.5 g/dL (3.4-5.0) Albumin/Globulin Ratio 0.9 (1.0-1.7) Glucose (Fingerstick) 452 mg/dL (70-99) 287 mg/dL (70-99) Laboratory Tests Test 10/21/19 14:40 10/21/19 17:02 10/21/19 21:15 10/22/19 05:15 Troponin I Quantitative < 0.017 ng/mL (0.000-0.055) Glucose (Fingerstick) 179 mg/dL (70-99) 251 mg/dL (70-99) White Blood Count 10.4 x10^3/uL (4.0-11.0) Red Blood Count 3.57 x10^6/uL (3.50-5.40) Hemoglobin 10.6 g/dL (12.0-15.5) Hematocrit 32.5 % (36.0-47.0) Mean Corpuscular Volume 91 fL (79-100) Mean Corpuscular Hemoglobin 30 pg (25-35) Mean Corpuscular Hemoglobin Concent 33 g/dL (31-37) Red Cell Distribution Width 14.3 % (11.5-14.5) Platelet Count 307 x10^3/uL (140-400) Neutrophils (%) (Auto) 55 % (31-73) Lymphocytes (%) (Auto) 36 % (24-48) Monocytes (%) (Auto) 8 % (0-9) Eosinophils (%) (Auto) 0 % (0-3) Basophils (%) (Auto) 1 % (0-3) Neutrophils # (Auto) 5.7 x10^3/uL (1.8-7.7) Lymphocytes # (Auto) 3.7 x10^3/uL (1.0-4.8) Monocytes # (Auto) 0.8 x10^3/uL (0.0-1.1) Eosinophils # (Auto) 0.0 x10^3/uL (0.0-0.7) Basophils # (Auto) 0.1 x10^3/uL (0.0-0.2) Test 10/22/19 07:50 10/22/19 08:55 10/22/19 09:23 10/22/19 10:37 Glucose (Fingerstick) 492 mg/dL (70-99) 452 mg/dL (70-99) 287 mg/dL (70-99) Sodium Level 132 mmol/L (136-145) Potassium Level 4.0 mmol/L (3.5-5.1) Chloride Level 97 mmol/L (98-107) Carbon Dioxide Level 25 mmol/L (21-32) Anion Gap 10 (6-14) Blood Urea Nitrogen 13 mg/dL (7-20) Creatinine 1.1 mg/dL (0.6-1.0) Estimated GFR (Cockcroft-Gault) 65.3 BUN/Creatinine Ratio 12 (6-20) Glucose Level 564 mg/dL (70-99) Calcium Level 9.0 mg/dL (8.5-10.1) Total Bilirubin 0.5 mg/dL (0.2-1.0) Aspartate Amino Transf (AST/SGOT) 14 U/L (15-37) Alanine Aminotransferase (ALT/SGPT) 14 U/L (14-59) Alkaline Phosphatase 99 U/L (46-116) Total Protein 7.5 g/dL (6.4-8.2) Albumin 3.5 g/dL (3.4-5.0) Albumin/Globulin Ratio 0.9 (1.0-1.7) Medications Current Medications Ondansetron HCl (Zofran) 4 mg STK-MED ONCE .ROUTE ; Start 10/19/19 at 12:48; Stop 10/19/19 at 12:49; Status DC Sodium Chloride 1,000 ml @ 1,000 mls/hr Q1H IV Last administered on 10/19/19at 13:47; Start 10/19/19 at 12:49; Stop 10/19/19 at 13:48; Status DC Ondansetron HCl (Zofran) 4 mg 1X ONCE IV Last administered on 10/19/19at 13:46; Start 10/19/19 at 13:30; Stop 10/19/19 at 13:31; Status DC Lorazepam (Ativan Inj) 1 mg 1X ONCE IVP ; Start 10/19/19 at 13:30; Stop 10/19/19 at 13:31; Status DC Insulin Human Regular (HumuLIN R VIAL) 10 unit 1X ONCE IV Last administered on 10/19/19at 15:33; Start 10/19/19 at 14:30; Stop 10/19/19 at 14:31; Status DC Sodium Chloride 1,000 ml @ 1,000 mls/hr 1X ONCE IV Last administered on 10/19/19at 15:33; Start 10/19/19 at 14:30; Stop 10/19/19 at 15:29; Status DC Pantoprazole Sodium (PROTONIX VIAL for IV PUSH) 40 mg 1X ONCE IVP Last administered on 10/19/19at 15:32; Start 10/19/19 at 15:15; Stop 10/19/19 at 15:16; Status DC Ondansetron HCl (Zofran) 4 mg PRN Q8HRS PRN IV NAUSEA/VOMITING; Start 10/19/19 at 15:45; Stop 10/19/19 at 20:00; Status DC Sodium Chloride 1,000 ml @ 150 mls/hr Q6H40M IV Last administered on 10/20/19at 05:02; Start 10/19/19 at 15:42; Stop 10/20/19 at 15:41; Status DC Dextrose (Dextrose 50%-Water Syringe) 12.5 gm PRN Q15MIN PRN IV SEE COMMENTS; Start 10/19/19 at 15:45; Status Cancel Ceftriaxone Sodium (Rocephin) 1 gm Q24H IVP Last administered on 10/21/19at 17 :46; Start 10/19/19 at 17:00 Diphenhydramine HCl (Benadryl) 25 mg 1X ONCE IVP Last administered on 10/19/19at 16:40; Start 10/19/19 at 16:15; Stop 10/19/19 at 16:16; Status DC Pantoprazole Sodium 80 mg/ Sodium Chloride 100 ml @ 10 mls/hr Q10H IV Last a dministered on 10/20/19at 02:43; Start 10/19/19 at 17:00; Stop 10/20/19 at 09:53; Status DC Fentanyl Citrate (Fentanyl 2ml Vial) 50 mcg 1X ONCE IVP ; Start 10/19/19 at 17:00; Stop 10/19/19 at 17:01; Status DC Lorazepam (Ativan Inj) 1 mg 1X ONCE IVP Last administered on 10/19/19at 23:25; Start 10/19/19 at 23:45; Stop 10/19/19 at 23:46; Status DC Diphenhydramine HCl (Benadryl) 12.5 mg PRN Q6HRS PRN IVP ITCHING Last administered on 10/22/19at 12:32; Start 10/20/19 at 00:15 Hydralazine HCl (Apresoline Inj) 10 mg PRN Q6HRS PRN IVP ELEVATED BP, SBP>170 Last administered on 10/20/19at 10:51; Start 10/20/19 at 00:15; Stop 10/20/19 at 14:16; Status DC Lorazepam (Ativan Inj) 0.5 mg PRN Q4HRS PRN IVP ANXIETY / AGITATION Last administered on 10/22/19at 12:32; Start 10/20/19 at 00:15 Ondansetron HCl (Zofran) 4 mg PRN Q6HRS PRN IVP NAUSEA/VOMITING 1ST CHOICE Last administered on 10/21/19at 06:18; Start 10/20/19 at 05:30 Insulin Human Lispro (HumaLOG) 0-7 UNITS TIDWMEALS SQ Last administered on 10/22/19at 12:29; Start 10/20/19 at 08:30 Dextrose (Dextrose 50%-Water Syringe) 12.5 gm PRN Q15MIN PRN IV SEE COMMENTS; Start 10/20/19 at 08:15 Pantoprazole Sodium (Protonix) 40 mg DAILYAC PO Last administered on 10/21/19at 09:09; Start 10/21/19 at 07:30; Stop 10/21/19 at 11:49; Status DC Lactobacillus Rhamnosus (Culturelle) 1 cap BID PO Last administered on 10/22/19at 10:03; Start 10/20/19 at 21:00 Lisinopril (Prinivil) 5 mg DAILY PO ; Start 10/20/19 at 15:00; Stop 10/20/19 at 16:07; Status DC Pantoprazole Sodium (Protonix) 40 mg DAILYAC PO ; Start 10/27/19 at 16:30; Stop 10/20/19 at 14:37; Status DC Insulin Glargine (Lantus Syringe) 18 unit BID SQ ; Start 10/20/19 at 21:00; Stop 10/20/19 at 16:07; Status DC Non-Formulary Medication (Insulin Detemir (Levemir)) 30 unit QHS SQ ; Start 10/20/19 at 21:00; Status UNV Hydralazine HCl (Apresoline Inj) 10 mg PRN Q4HRS PRN IVP ELEVATED BP, SEE COMMENTS Last administered on 10/21/19at 03:43; Start 10/20/19 at 14:15 Insulin Glargine (Lantus Syringe) 10 unit QHS SQ ; Start 10/20/19 at 21:00; Stop 10/20/19 at 14:39; Status DC Gabapentin (Neurontin) 800 mg TID PO Last administered on 10/22/19at 09:20; Start 10/20/19 at 21:00 Losartan Potassium (Cozaar) 25 mg DAILY PO ; Start 10/21/19 at 09:00; Stop 10/20/19 at 22:46; Status DC Amlodipine Besylate (Norvasc) 10 mg DAILY PO Last administered on 10/22/19at 09:26; Start 10/21/19 at 09:00 Metformin HCl (Glucophage) 500 mg BIDWMEALS PO ; Start 10/20/19 at 17:00; Stop 10/20/19 at 16:07; Status DC Insulin Glargine (Lantus Syringe) 10 unit DAILYWSUP SQ Last administered on 10/20/19at 17:48; Start 10/20/19 at 17:00; Stop 10/21/19 at 10:04; Status DC Losartan Potassium (Cozaar) 50 mg DAILY PO Last administered on 10/22/19at 09:21; Start 10/20/19 at 23:00 Metoprolol Tartrate (Lopressor) 25 mg BID PO Last administered on 10/22/19at 09:21; Start 10/20/19 at 23:00 Multi-Ingredient Mouthwash/Gargle (Gi Cocktail) 20 ml PRN QID PRN PO CHEST PAIN Last administered on 10/21/19at 19:42; Start 10/21/19 at 09:30 Insulin Glargine (Lantus Syringe) 16 unit DAILYWSUP SQ Last administered on 10/21/19at 18:13; Start 10/21/19 at 17:00 Pantoprazole Sodium (PROTONIX VIAL for IV PUSH) 40 mg BIDAC IVP Last administered on 10/22/19at 08:08; Start 10/21/19 at 16:30; Stop 10/22/19 at 10:12; Status DC Potassium Chloride (Klor-Con) 40 meq 1X ONCE PO Last administered on 10/21/19at 13:47; Start 10/21/19 at 13:15; Stop 10/21/19 at 13:18; Status DC Insulin Glargine (Lantus Syringe) 16 unit DAILY08 SQ Last administered on 10/11 12/30at 08:36; Start 10/22/19 at 08:30 Insulin Human Lispro (HumaLOG) 10 units ONCE ONCE SQ Last administered on 10/22/19at 08:35; Start 10/22/19 at 08:17; Stop 10/22/19 at 08:23; Status DC Insulin Human Lispro (HumaLOG) 10 units ONCE ONCE SQ Last administered on 10/22/19at 10:05; Start 10/22/19 at 09:57; Stop 10/22/19 at 10:00; Status DC Bisacodyl (Dulcolax Tab) 10 mg 1X ONCE PO Last administered on 10/22/19at 10:26; Start 10/22/19 at 10:15; Stop 10/22/19 at 10:16; Status DC Polyethylene Glycol (miraLAX PACKET) 17 gm PRN DAILY PRN PO CONSTIPATION; Start 10/22/19 at 10:15 Pantoprazole Sodium (Protonix) 40 mg DAILYAC PO ; Start 10/23/19 at 07:30 Insulin Human Lispro (HumaLOG) 9 units 1X ONCE SQ ; Start 10/22/19 at 12:15; Stop 10/22/19 at 12:16; Status Cancel Active Scripts Active Doxycycline Monohydrate 100 Mg Capsule 1 Cap PO BID 7 Days Pantoprazole Sodium (Pantoprazole Sodium) 40 Mg Tablet.dr 40 Mg PO DAILYAC 30 Days Metformin Hcl 500 Mg Tablet 500 Mg PO BIDWMEALS 30 Days Levemir (Insulin Detemir) 100 Unit/1 Ml Vial 18 Unit SQ BID 30 Days Lisinopril 5 Mg Tablet 1 Tab PO DAILY Levemir (Insulin Detemir) 100 Unit/1 Ml Vial 30 Unit SQ QHS 30 Days Reported Levemir Flextouch (Insulin Detemir) 100 Unit/1 Ml Insuln.pen 10 Unit SQ DAILY Metformin Hcl 500 Mg Tablet 500 Mg PO BIDWMEALS Amlodipine Besylate 10 Mg Tablet 10 Mg PO DAILY Losartan Potassium 50 Mg Tablet 25 Mg PO DAILY Gabapentin 800 Mg Tablet 800 Mg PO TID Vitals/I & O Vital Sign - Last 24 Hours 10/21/19 10/21/19 10/21/19 10/21/19 15:00 19:59 20:00 21:00 Temp 98.6 98.4 98.6 98.4 Pulse 91 100 Resp 18 20 B/P (MAP) 77/45 (56) 103/53 (70) 104/60 Pulse Ox 100 100 O2 Delivery Room Air Room Air Room Air 10/21/19 10/22/19 10/22/19 10/22/19 23:33 03:50 07:58 08:00 Temp 98.4 98.2 97.9 98.4 98.2 97.9 Pulse 97 103 102 Resp 20 20 18 B/P (MAP) 104/60 (75) 120/76 (91) 143/86 (105) Pulse Ox 99 99 100 O2 Delivery Room Air Room Air Room Air Room Air 10/22/19 10/22/19 10/22/19 10/22/19 09:21 09:21 09:26 11:14 Temp 97.9 97.9 Pulse 102 102 102 89 Resp 18 B/P (MAP) 143/86 143/86 143/86 146/88 (107) Pulse Ox 96 O2 Delivery Room Air Intake and Output 10/21/19 10/21/19 10/22/19 15:00 23:00 07:00 Intake Total 310 ml Balance 310 ml ROLA GALO MD Oct 22, 2019 13:34
[2019-10-22] MEDS ORDERED: FLU VAX QS 2019-20 (36MOS+)/PF 0.5 ML SYRINGE. VAX IM ONE (14:00)
[2019-10-22 15:00] VITALS: BP 115/72
[2019-10-22] MEDS: cefTRIAXone IV Push 1 GM VIAL. IVP SCH (16:37)
--- NOTE | 2019-10-22 17:33 | NUR ---
Unable to scan Lantus insulin as barcode smeared, entered manually and verified with Jess POLANCOcustomer experience analyst.
[2019-10-22 19:10] VITALS: BP 139/79
[2019-10-22] MEDS: CEFDINIR 300 MG CAPSULE PO SCH (20:53)
[2019-10-22 23:30] VITALS: BP 126/69
[2019-10-23 03:10] VITALS: BP 126/64
[2019-10-23] MEDS: diphenhydrAMINE 50 MG/ML VIAL IVP PRN (03:10)
[2019-10-23 07:00] VITALS: BP 116/86
[2019-10-23] MEDS ORDERED: PANTOPRAZOLE 40 MG TABLET.DR. PO SCH (07:30)
[2019-10-23] MEDS: LACTOBACILLUS RHAMNOSUS GG 1 CAPSULE. PO SCH (08:59)
[2019-10-23] MEDS: CEFDINIR 300 MG CAPSULE PO SCH (08:59)
[2019-10-23] MEDS: METOPROLOL TART IMMED RELEASE 25 MG TABLET. PO SCH (09:00)
[2019-10-23] MEDS: LOSARTAN POTASSIUM 25 MG TABLET. PO SCH (09:00)
[2019-10-23] MEDS: GABAPENTIN 400 MG CAPSULE. PO SCH (09:00)
[2019-10-23] MEDS: INSULIN GLARGINE SYRINGE. SQ SCH (09:14)
[2019-10-23] MEDS: INSULIN LISPRO 300 UNITS/3 ML VIAL. SQ SCH ×2 (09:15→11:49)
[2019-10-23] MEDS: amLODIPine BESYLATE 10 MG TABLET PO SCH (09:19)
--- NOTE | 2019-10-23 10:51 | PDOC ---
PROGRESS NOTES History of Present Illness History of Present Illness ASSESSMENT AND PLAN: Hyperglycemia, anion gap metabolic acidosis, leukocytosis, electrolyte disturbance hyponatremia. THC ABUSE DIABETES, UNCONTROLLED HTN UNCONTROLLED, improving Mild fatty infiltration of the liver. HX NONCOMPLIANCE MORBID OBESITY LEUKOCYTOSIS 10/21 / rapid response overnight for chest and arm pain. 10/22 SUSPECT SHE IS NONCOMPLIANT WITH ADA DIET Plan admit IV fluids, IV insulin, consult GI, replete electrolytes, empiric IV antibiotics, home meds, DVT prophylaxis. Full code CONTROL GLUCOSE. A1C IV HYDRALAZINE 10MG Q 4 HRS PRN BP SUPPORT lantus 16 units sq BID 10/23 insists/ demands on d/c today 28 MIN PT exam, chart review,d/c planning > 50% of time spent with exam, chart review, pt care coordination Vitals Vitals Vital Signs Date Time Temp Pulse Resp B/P (MAP) Pulse Ox O2 Delivery O2 Flow Rate FiO2 10/23/19 09:19 92 116/86 10/23/19 08:00 Room Air 10/23/19 07:00 98.2 18 99 98.2 Physical Exam Physical Exam MUSCULOSKELETAL: Well developed, well nourished, good range of motion ENDOCRINE: No thyromegaly was palpated LYMPHATICS: No cervical chain or axillary nodes were noted HEMATOPOIETIC: No bruising NECK: Supple, no JVD, no thyromegaly was noted. LUNGS: Clear to auscultation in all lung chen without rhonchi or wheezing. HEART: RRR, S1, S2 present. Peripheral pulses intact, no obvious murmurs were noted. ABDOMEN: Soft, nontender. She has decreased bowel sounds. No organomegaly, normal bowel sounds. EXTREMITIES: Without any cyanosis, clubbing, or edema. Pedal pulses intact, Homans sign is negative. NEUROLOGIC: Normal speech, normal tone. A & O x 3, moves all extremities, no obvious focal deficits. PSYCHIATRIC: Normal affect, normal mood. Stable. SKIN: No ulcerations or rashes, good skin turgor, no jaundice. VASCULAR: Good capillary refill, neurovascular bundle appears to be intact. LABORATORY DATA: Drug screen positive for cannabinoids. Urinalysis negative. INR is 1. Gastroccult positive. General: Alert, Oriented X3, Cooperative, No acute distress Heart: Regular rate, Normal S1, Normal S2 Lungs: Clear Abdomen: Soft, No tenderness Extremities: No edema, Normal pulses Skin: No breakdown, No significant lesion Labs LABS Laboratory Tests Test 10/22/19 16:59 10/22/19 21:29 10/23/19 07:51 Glucose (Fingerstick) 192 mg/dL (70-99) 235 mg/dL (70-99) 330 mg/dL (70-99) Assessment and Plan Assessmemt and Plan Problems Medical Problems: (1) GI bleeding Status: Acute (2) Intractable nausea and vomiting Status: Acute (3) Marijuana abuse Status: Acute Comment Review of Relevant I have reviewed the following items dary (where applicable) has been applied. Labs Laboratory Tests Test 10/21/19 11:29 10/21/19 14:40 10/21/19 17:02 10/21/19 21:15 Glucose (Fingerstick) 273 mg/dL (70-99) 179 mg/dL (70-99) 251 mg/dL (70-99) Troponin I Quantitative < 0.017 ng/mL (0.000-0.055) Test 10/22/19 05:15 10/22/19 07:50 10/22/19 08:55 10/22/19 09:23 White Blood Count 10.4 x10^3/uL (4.0-11.0) Red Blood Count 3.57 x10^6/uL (3.50-5.40) Hemoglobin 10.6 g/dL (12.0-15.5) Hematocrit 32.5 % (36.0-47.0) Mean Corpuscular Volume 91 fL (79-100) Mean Corpuscular Hemoglobin 30 pg (25-35) Mean Corpuscular Hemoglobin Concent 33 g/dL (31-37) Red Cell Distribution Width 14.3 % (11.5-14.5) Platelet Count 307 x10^3/uL (140-400) Neutrophils (%) (Auto) 55 % (31-73) Lymphocytes (%) (Auto) 36 % (24-48) Monocytes (%) (Auto) 8 % (0-9) Eosinophils (%) (Auto) 0 % (0-3) Basophils (%) (Auto) 1 % (0-3) Neutrophils # (Auto) 5.7 x10^3/uL (1.8-7.7) Lymphocytes # (Auto) 3.7 x10^3/uL (1.0-4.8) Monocytes # (Auto) 0.8 x10^3/uL (0.0-1.1) Eosinophils # (Auto) 0.0 x10^3/uL (0.0-0.7) Basophils # (Auto) 0.1 x10^3/uL (0.0-0.2) Glucose (Fingerstick) 492 mg/dL (70-99) 452 mg/dL (70-99) Sodium Level 132 mmol/L (136-145) Potassium Level 4.0 mmol/L (3.5-5.1) Chloride Level 97 mmol/L (98-107) Carbon Dioxide Level 25 mmol/L (21-32) Anion Gap 10 (6-14) Blood Urea Nitrogen 13 mg/dL (7-20) Creatinine 1.1 mg/dL (0.6-1.0) Estimated GFR (Cockcroft-Gault) 65.3 BUN/Creatinine Ratio 12 (6-20) Glucose Level 564 mg/dL (70-99) Calcium Level 9.0 mg/dL (8.5-10.1) Total Bilirubin 0.5 mg/dL (0.2-1.0) Aspartate Amino Transf (AST/SGOT) 14 U/L (15-37) Alanine Aminotransferase (ALT/SGPT) 14 U/L (14-59) Alkaline Phosphatase 99 U/L (46-116) Total Protein 7.5 g/dL (6.4-8.2) Albumin 3.5 g/dL (3.4-5.0) Albumin/Globulin Ratio 0.9 (1.0-1.7) Test 10/22/19 10:37 10/22/19 16:59 10/22/19 21:29 10/23/19 07:51 Glucose (Fingerstick) 287 mg/dL (70-99) 192 mg/dL (70-99) 235 mg/dL (70-99) 330 mg/dL (70-99) Laboratory Tests Test 10/22/19 16:59 10/22/19 21:29 10/23/19 07:51 Glucose (Fingerstick) 192 mg/dL (70-99) 235 mg/dL (70-99) 330 mg/dL (70-99) Medications Current Medications Ondansetron HCl (Zofran) 4 mg STK-MED ONCE .ROUTE ; Start 10/19/19 at 12:48; Stop 10/19/19 at 12:49; Status DC Sodium Chloride 1,000 ml @ 1,000 mls/hr Q1H IV Last administered on 10/19/19at 13:47; Start 10/19/19 at 12:49; Stop 10/19/19 at 13:48; Status DC Ondansetron HCl (Zofran) 4 mg 1X ONCE IV Last administered on 10/19/19at 13:46; Start 10/19/19 at 13:30; Stop 10/19/19 at 13:31; Status DC Lorazepam (Ativan Inj) 1 mg 1X ONCE IVP ; Start 10/19/19 at 13:30; Stop 10/19/19 at 13:31; Status DC Insulin Human Regular (HumuLIN R VIAL) 10 unit 1X ONCE IV Last administered on 10/19/19at 15:33; Start 10/19/19 at 14:30; Stop 10/19/19 at 14:31; Status DC Sodium Chloride 1,000 ml @ 1,000 mls/hr 1X ONCE IV Last administered on 10/19/19at 15:33; Start 10/19/19 at 14:30; Stop 10/19/19 at 15:29; Status DC Pantoprazole Sodium (PROTONIX VIAL for IV PUSH) 40 mg 1X ONCE IVP Last admi nistered on 10/19/19at 15:32; Start 10/19/19 at 15:15; Stop 10/19/19 at 15:16; Status DC Ondansetron HCl (Zofran) 4 mg PRN Q8HRS PRN IV NAUSEA/VOMITING; Start 10/19/19 at 15:45; Stop 10/19/19 at 20:00; Status DC Sodium Chloride 1,000 ml @ 150 mls/hr Q6H40M IV Last administered on 10/20/19at 05:02; Start 10/19/19 at 15:42; Stop 10/20/19 at 15:41; Status DC Dextrose (Dextrose 50%-Water Syringe) 12.5 gm PRN Q15MIN PRN IV SEE COMMENTS; Start 10/19/19 at 15:45; Status Cancel Ceftriaxone Sodium (Rocephin) 1 gm Q24H IVP Last administered on 10/22/19 16:37; Start 10/19/19 at 17:00; Stop 10/22/19 at 18:00; Status DC Diphenhydramine HCl (Benadryl) 25 mg 1X ONCE IVP Last administered on 10/19/19 16:40; Start 10/19/19 at 16:15; Stop 10/19/19 at 16:16; Status DC Pantoprazole Sodium 80 mg/ Sodium Chloride 100 ml @ 10 mls/hr Q10H IV Last administered on 10/20/19 02:43; Start 10/19/19 at 17:00; Stop 10/20/19 at 09:53; Status DC Fentanyl Citrate (Fentanyl 2ml Vial) 50 mcg 1X ONCE IVP ; Start 10/19/19 at 17:00; Stop 10/19/19 at 17:01; Status DC Lorazepam (Ativan Inj) 1 mg 1X ONCE IVP Last administered on 10/19/19 23:25; Start 10/19/19 at 23:45; Stop 10/19/19 at 23:46; Status DC Diphenhydramine HCl (Benadryl) 12.5 mg PRN Q6HRS PRN IVP ITCHING Last a dministered on 10/23/19 03:10; Start 10/20/19 at 00:15 Hydralazine HCl (Apresoline Inj) 10 mg PRN Q6HRS PRN IVP ELEVATED BP, SBP>170 Last administered on 10/20/19at 10:51; Start 10/20/19 at 00:15; Stop 10/20/19 at 14:16; Status DC Lorazepam (Ativan Inj) 0.5 mg PRN Q4HRS PRN IVP ANXIETY / AGITATION Last administered on 10/23/19 09:02; Start 10/20/19 at 00:15 Ondansetron HCl (Zofran) 4 mg PRN Q6HRS PRN IVP NAUSEA/VOMITING 1ST CHOICE Last administered on 10/21/19 06:18; Start 10/20/19 at 05:30 Insulin Human Lispro (HumaLOG) 0-7 UNITS TIDWMEALS SQ Last administered on 10/23/19 09:15; Start 10/20/19 at 08:30 Dextrose (Dextrose 50%-Water Syringe) 12.5 gm PRN Q15MIN PRN IV SEE COMMENTS; Start 10/20/19 at 08:15 Pantoprazole Sodium (Protonix) 40 mg DAILYAC PO Last administered on 10/21/19at 09:09; Start 10/21/19 at 07:30; Stop 10/21/19 at 11:49; Status DC Lactobacillus Rhamnosus (Culturelle) 1 cap BID PO Last administered on 10/23/19at 08:59; Start 10/20/19 at 21:00 Lisinopril (Prinivil) 5 mg DAILY PO ; Start 10/20/19 at 15:00; Stop 10/20/19 at 16:07; Status DC Pantoprazole Sodium (Protonix) 40 mg DAILYAC PO ; Start 10/27/19 at 16:30; Stop 10/20/19 at 14:37; Status DC Insulin Glargine (Lantus Syringe) 18 unit BID SQ ; Start 10/20/19 at 21:00; Stop 10/20/19 at 16:07; Status DC Non-Formulary Medication (Insulin Detemir (Levemir)) 30 unit QHS SQ ; Start 10/20/19 at 21:00; Status UNV Hydralazine HCl (Apresoline Inj) 10 mg PRN Q4HRS PRN IVP ELEVATED BP, SEE COMMENTS Last administered on 10/21/19at 03:43; Start 10/20/19 at 14:15 Insulin Glargine (Lantus Syringe) 10 unit QHS SQ ; Start 10/20/19 at 21:00; Stop 10/20/19 at 14:39; Status DC Gabapentin (Neurontin) 800 mg TID PO Last administered on 10/23/19at 09:00; Start 10/20/19 at 21:00 Losartan Potassium (Cozaar) 25 mg DAILY PO ; Start 10/21/19 at 09:00; Stop 10/20/19 at 22:46; Status DC Amlodipine Besylate (Norvasc) 10 mg DAILY PO Last administered on 10/23/19at 09:19; Start 10/21/19 at 09:00 Metformin HCl (Glucophage) 500 mg BIDWMEALS PO ; Start 10/20/19 at 17:00; Stop 10/20/19 at 16:07; Status DC Insulin Glargine (Lantus Syringe) 10 unit DAILYWSUP SQ Last administered on 10/20/19at 17:48; Start 10/20/19 at 17:00; Stop 10/21/19 at 10:04; Status DC Losartan Potassium (Cozaar) 50 mg DAILY PO Last administered on 10/23/19at 09:00; Start 10/20/19 at 23:00 Metoprolol Tartrate (Lopressor) 25 mg BID PO Last administered on 10/23/19at 09:00; Start 10/20/19 at 23:00 Multi-Ingredient Mouthwash/Gargle (Gi Cocktail) 20 ml PRN QID PRN PO CHEST PAIN Last administered on 10/21/19at 19:42; Start 10/21/19 at 09:30 Insulin Glargine (Lantus Syringe) 16 unit DAILYWSUP SQ Last administered on 10/22/19at 17:00; Start 10/21/19 at 17:00 Pantoprazole Sodium (PROTONIX VIAL for IV PUSH) 40 mg BIDAC IVP Last administered on 10/22/19at 08:08; Start 10/21/19 at 16:30; Stop 10/22/19 at 10:12; Status DC Potassium Chloride (Klor-Con) 40 meq 1X ONCE PO Last administered on 10/21/19at 13:47; Start 10/21/19 at 13:15; Stop 10/21/19 at 13:18; Status DC Insulin Glargine (Lantus Syringe) 16 unit DAILY08 SQ Last administered on 10/23/19at 09:14; Start 10/22/19 at 08:30 Insulin Human Lispro (HumaLOG) 10 units ONCE ONCE SQ Last administered on 10/22/19at 08:35; Start 10/22/19 at 08:17; Stop 10/22/19 at 08:23; Status DC Insulin Human Lispro (HumaLOG) 10 units ONCE ONCE SQ Last administered on 10/22/19at 10:05; Start 10/22/19 at 09:57; Stop 10/22/19 at 10:00; Status DC Bisacodyl (Dulcolax Tab) 10 mg 1X ONCE PO Last administered on 10/22/19at 10:26; Start 10/22/19 at 10:15; Stop 10/22/19 at 10:16; Status DC Polyethylene Glycol (miraLAX PACKET) 17 gm PRN DAILY PRN PO CONSTIPATION; Start 10/22/19 at 10:15 Pantoprazole Sodium (Protonix) 40 mg DAILYAC PO Last administered on 10/23/19at 09:00; Start 10/23/19 at 07:30 Insulin Human Lispro (HumaLOG) 9 units 1X ONCE SQ ; Start 10/22/19 at 12:15; Stop 10/22/19 at 12:16; Status Cancel Influenza Virus Vaccine Quadrival (Afluria Quad 2019-20 (3yr Up) Syringe) 0.5 ml ONCE ONCE VAX IM Last administered on 10/22/19at 16:43; Start 10/22/19 at 14:00; Stop 10/22/19 at 14:03; Status DC Cefdinir (Omnicef) 300 mg BID PO Last administered on 10/23/19at 08:59; Start 10/22/19 at 21:00 Active Scripts Active Doxycycline Monohydrate 100 Mg Capsule 1 Cap PO BID 7 Days Pantoprazole Sodium (Pantoprazole Sodium) 40 Mg Tablet.dr 40 Mg PO DAILYAC 3 0 Days Metformin Hcl 500 Mg Tablet 500 Mg PO BIDWMEALS 30 Days Levemir (Insulin Detemir) 100 Unit/1 Ml Vial 18 Unit SQ BID 30 Days Lisinopril 5 Mg Tablet 1 Tab PO DAILY Levemir (Insulin Detemir) 100 Unit/1 Ml Vial 30 Unit SQ QHS 30 Days Reported Levemir Flextouch (Insulin Detemir) 100 Unit/1 Ml Insuln.pen 10 Unit SQ DAILY Metformin Hcl 500 Mg Tablet 500 Mg PO BIDWMEALS Amlodipine Besylate 10 Mg Tablet 10 Mg PO DAILY Losartan Potassium 50 Mg Tablet 25 Mg PO DAILY Gabapentin 800 Mg Tablet 800 Mg PO TID Vitals/I & O Vital Sign - Last 24 Hours 10/22/19 10/22/19 10/22/19 10/22/19 11:14 15:00 19:10 20:14 Temp 97.9 98.2 98.6 97.9 98.2 98.6 Pulse 89 89 100 Resp 18 18 20 B/P (MAP) 146/88 (107) 115/72 (86) 139/79 (99) Pulse Ox 96 99 94 O2 Delivery Room Air Room Air Room Air Room Air 10/22/19 10/22/19 10/23/19 10/23/19 20:54 23:30 03:10 07:00 Temp 98.7 98.2 98.2 98.7 98.2 98.2 Pulse 100 98 84 92 Resp 18 18 18 B/P (MAP) 139/79 126/69 (88) 126/64 (84) 116/86 (96) Pulse Ox 96 95 99 O2 Delivery Room Air Room Air Room Air 10/23/19 10/23/19 10/23/19 10/23/19 08:00 09:00 09:00 09:19 Pulse 92 92 92 B/P (MAP) 116/86 116/86 116/86 O2 Delivery Room Air Intake and Output 10/22/19 10/22/19 10/23/19 15:00 23:00 07:00 Intake Total 360 ml 120 ml 350 ml Balance 360 ml 120 ml 350 ml ROLA GALO MD Oct 23, 2019 10:51
[2019-10-23 11:00] VITALS: BP 154/92
--- NOTE | 2019-10-23 12:21 | PDOC ---
G I PROGRESS NOTE Reason for Follow-up N/V Subjective Tolerating PO/wants to go home Physical Exam Lungs clear CV S1 S2 ABD +BS, soft, nontender Review of Relevant I have reviewed the following items dary (where applicable) has been applied. Labs Laboratory Tests Test 10/21/19 14:40 10/21/19 17:02 10/21/19 21:15 10/22/19 05:15 Troponin I Quantitative < 0.017 ng/mL (0.000-0.055) Glucose (Fingerstick) 179 mg/dL (70-99) 251 mg/dL (70-99) White Blood Count 10.4 x10^3/uL (4.0-11.0) Red Blood Count 3.57 x10^6/uL (3.50-5.40) Hemoglobin 10.6 g/dL (12.0-15.5) Hematocrit 32.5 % (36.0-47.0) Mean Corpuscular Volume 91 fL (79-100) Mean Corpuscular Hemoglobin 30 pg (25-35) Mean Corpuscular Hemoglobin Concent 33 g/dL (31-37) Red Cell Distribution Width 14.3 % (11.5-14.5) Platelet Count 307 x10^3/uL (140-400) Neutrophils (%) (Auto) 55 % (31-73) Lymphocytes (%) (Auto) 36 % (24-48) Monocytes (%) (Auto) 8 % (0-9) Eosinophils (%) (Auto) 0 % (0-3) Basophils (%) (Auto) 1 % (0-3) Neutrophils # (Auto) 5.7 x10^3/uL (1.8-7.7) Lymphocytes # (Auto) 3.7 x10^3/uL (1.0-4.8) Monocytes # (Auto) 0.8 x10^3/uL (0.0-1.1) Eosinophils # (Auto) 0.0 x10^3/uL (0.0-0.7) Basophils # (Auto) 0.1 x10^3/uL (0.0-0.2) Test 10/22/19 07:50 10/22/19 08:55 10/22/19 09:23 10/22/19 10:37 Glucose (Fingerstick) 492 mg/dL (70-99) 452 mg/dL (70-99) 287 mg/dL (70-99) Sodium Level 132 mmol/L (136-145) Potassium Level 4.0 mmol/L (3.5-5.1) Chloride Level 97 mmol/L (98-107) Carbon Dioxide Level 25 mmol/L (21-32) Anion Gap 10 (6-14) Blood Urea Nitrogen 13 mg/dL (7-20) Creatinine 1.1 mg/dL (0.6-1.0) Estimated GFR (Cockcroft-Gault) 65.3 BUN/Creatinine Ratio 12 (6-20) Glucose Level 564 mg/dL (70-99) Calcium Level 9.0 mg/dL (8.5-10.1) Total Bilirubin 0.5 mg/dL (0.2-1.0) Aspartate Amino Transf (AST/SGOT) 14 U/L (15-37) Alanine Aminotransferase (ALT/SGPT) 14 U/L (14-59) Alkaline Phosphatase 99 U/L (46-116) Total Protein 7.5 g/dL (6.4-8.2) Albumin 3.5 g/dL (3.4-5.0) Albumin/Globulin Ratio 0.9 (1.0-1.7) Test 10/22/19 16:59 10/22/19 21:29 10/23/19 07:51 10/23/19 11:26 Glucose (Fingerstick) 192 mg/dL (70-99) 235 mg/dL (70-99) 330 mg/dL (70-99) 294 mg/dL (70-99) Laboratory Tests Test 10/22/19 16:59 10/22/19 21:29 10/23/19 07:51 10/23/19 11:26 Glucose (Fingerstick) 192 mg/dL (70-99) 235 mg/dL (70-99) 330 mg/dL (70-99) 294 mg/dL (70-99) Medications Current Medications Ondansetron HCl (Zofran) 4 mg STK-MED ONCE .ROUTE ; Start 10/19/19 at 12:48; Stop 10/19/19 at 12:49; Status DC Sodium Chloride 1,000 ml @ 1,000 mls/hr Q1H IV Last administered on 10/19/19at 13:47; Start 10/19/19 at 12:49; Stop 10/19/19 at 13:48; Status DC Ondansetron HCl (Zofran) 4 mg 1X ONCE IV Last administered on 10/19/19at 13:46; Start 10/19/19 at 13:30; Stop 10/19/19 at 13:31; Status DC Lorazepam (Ativan Inj) 1 mg 1X ONCE IVP ; Start 10/19/19 at 13:30; Stop 10/19/19 at 13:31; Status DC Insulin Human Regular (HumuLIN R VIAL) 10 unit 1X ONCE IV Last administered on 10/19/19at 15:33; Start 10/19/19 at 14:30; Stop 10/19/19 at 14:31; Status DC Sodium Chloride 1,000 ml @ 1,000 mls/hr 1X ONCE IV Last administered on 10/19/19at 15:33; Start 10/19/19 at 14:30; Stop 10/19/19 at 15:29; Status DC Pantoprazole Sodium (PROTONIX VIAL for IV PUSH) 40 mg 1X ONCE IVP Last administered on 10/19/19at 15:32; Start 10/19/19 at 15:15; Stop 10/19/19 at 15:16; Status DC Ondansetron HCl (Zofran) 4 mg PRN Q8HRS PRN IV NAUSEA/VOMITING; Start 10/19/19 at 15:45; Stop 10/19/19 at 20:00; Status DC Sodium Chloride 1,000 ml @ 150 mls/hr Q6H40M IV Last administered on 10/20/19at 05:02; Start 10/19/19 at 15:42; Stop 10/20/19 at 15:41; Status DC Dextrose (Dextrose 50%-Water Syringe) 12.5 gm PRN Q15MIN PRN IV SEE COMMENTS; Start 10/19/19 at 15:45; Status Cancel Ceftriaxone Sodium (Rocephin) 1 gm Q24H IVP Last administered on 10/22/19at 16:37; Start 10/19/19 at 17:00; Stop 10/22/19 at 18:00; Status DC Diphenhydramine HCl (Benadryl) 25 mg 1X ONCE IVP Last administered on 10/19/19at 16:40; Start 10/19/19 at 16:15; Stop 10/19/19 at 16:16; Status DC Pantoprazole Sodium 80 mg/ Sodium Chloride 100 ml @ 10 mls/hr Q10H IV Last administered on 10/20/19at 02:43; Start 10/19/19 at 17:00; Stop 10/20/19 at 09:53; Status DC Fentanyl Citrate (Fentanyl 2ml Vial) 50 mcg 1X ONCE IVP ; Start 10/19/19 at 17:00; Stop 10/19/19 at 17:01; Status DC Lorazepam (Ativan Inj) 1 mg 1X ONCE IVP Last administered on 10/19/19at 23:25; Start 10/19/19 at 23:45; Stop 10/19/19 at 23:46; Status DC Diphenhydramine HCl (Benadryl) 12.5 mg PRN Q6HRS PRN IVP ITCHING Last administered on 10/23/19at 03:10; Start 10/20/19 at 00:15 Hydralazine HCl (Apresoline Inj) 10 mg PRN Q6HRS PRN IVP ELEVATED BP, SBP>170 Last administered on 10/20/19at 10:51; Start 10/20/19 at 00:15; Stop 10/20/19 at 14:16; Status DC Lorazepam (Ativan Inj) 0.5 mg PRN Q4HRS PRN IVP ANXIETY / AGITATION Last administered on 10/23/19at 11:39; Start 10/20/19 at 00:15 Ondansetron HCl (Zofran) 4 mg PRN Q6HRS PRN IVP NAUSEA/VOMITING 1ST CHOICE Last administered on 10/21/19at 06:18; Start 10/20/19 at 05:30 Insulin Human Lispro (HumaLOG) 0-7 UNITS TIDWMEALS SQ Last administered on 10/23/19at 11:49; Start 10/20/19 at 08:30 Dextrose (Dextrose 50%-Water Syringe) 12.5 gm PRN Q15MIN PRN IV SEE COMMENTS; Start 10/20/19 at 08:15 Pantoprazole Sodium (Protonix) 40 mg DAILYAC PO Last administered on 10/21/19at 09:09; Start 10/21/19 at 07:30; Stop 10/21/19 at 11:49; Status DC Lactobacillus Rhamnosus (Culturelle) 1 cap BID PO Last administered on 10/23/19at 08:59; Start 10/20/19 at 21:00 Lisinopril (Prinivil) 5 mg DAILY PO ; Start 10/20/19 at 15:00; Stop 10/20/19 at 16:07; Status DC Pantoprazole Sodium (Protonix) 40 mg DAILYAC PO ; Start 10/27/19 at 16:30; Stop 10/20/19 at 14:37; Status DC Insulin Glargine (Lantus Syringe) 18 unit BID SQ ; Start 10/20/19 at 21:00; Stop 10/20/19 at 16:07; Status DC Non-Formulary Medication (Insulin Detemir (Levemir)) 30 unit QHS SQ ; Start 10/20/19 at 21:00; Status UNV Hydralazine HCl (Apresoline Inj) 10 mg PRN Q4HRS PRN IVP ELEVATED BP, SEE COMMENTS Last administered on 10/21/19at 03:43; Start 10/20/19 at 14:15 Insulin Glargine (Lantus Syringe) 10 unit QHS SQ ; Start 10/20/19 at 21:00; Stop 10/20/19 at 14:39; Status DC Gabapentin (Neurontin) 800 mg TID PO Last administered on 10/23/19at 09:00; St art 10/20/19 at 21:00 Losartan Potassium (Cozaar) 25 mg DAILY PO ; Start 10/21/19 at 09:00; Stop 10/20/19 at 22:46; Status DC Amlodipine Besylate (Norvasc) 10 mg DAILY PO Last administered on 10/23/19at 09:19; Start 10/21/19 at 09:00 Metformin HCl (Glucophage) 500 mg BIDWMEALS PO ; Start 10/20/19 at 17:00; Stop 10/20/19 at 16:07; Status DC Insulin Glargine (Lantus Syringe) 10 unit DAILYWSUP SQ Last administered on 10/20/19at 17:48; Start 10/20/19 at 17:00; Stop 10/21/19 at 10:04; Status DC Losartan Potassium (Cozaar) 50 mg DAILY PO Last administered on 10/23/19 09:00; Start 10/20/19 at 23:00 Metoprolol Tartrate (Lopressor) 25 mg BID PO Last administered on 10/23/19 09:00; Start 10/20/19 at 23:00 Multi-Ingredient Mouthwash/Gargle (Gi Cocktail) 20 ml PRN QID PRN PO CHEST PAIN Last administered on 10/21/19 19:42; Start 10/21/19 at 09:30 Insulin Glargine (Lantus Syringe) 16 unit DAILYWSUP SQ Last administered on 10/22/19 17:00; Start 10/21/19 at 17:00 Pantoprazole Sodium (PROTONIX VIAL for IV PUSH) 40 mg BIDAC IVP Last administered on 10/22/19 08:08; Start 10/21/19 at 16:30; Stop 10/22/19 at 10:12; Status DC Potassium Chloride (Klor-Con) 40 meq 1X ONCE PO Last administered on 10/21/19at 13:47; Start 10/21/19 at 13:15; Stop 10/21/19 at 13:18; Status DC Insulin Glargine (Lantus Syringe) 16 unit DAILY08 SQ Last administered on 10/23/19 09:14; Start 10/22/19 at 08:30 Insulin Human Lispro (HumaLOG) 10 units ONCE ONCE SQ Last administered on 10/22/19 08:35; Start 10/22/19 at 08:17; Stop 10/22/19 at 08:23; Status DC Insulin Human Lispro (HumaLOG) 10 units ONCE ONCE SQ Last administered on 10/22/19at 10:05; Start 10/22/19 at 09:57; Stop 10/22/19 at 10:00; Status DC Bisacodyl (Dulcolax Tab) 10 mg 1X ONCE PO Last administered on 10/22/19 10:26; Start 10/22/19 at 10:15; Stop 10/22/19 at 10:16; Status DC Polyethylene Glycol (miraLAX PACKET) 17 gm PRN DAILY PRN PO CONSTIPATION; Start 10/22/19 at 10:15 Pantoprazole Sodium (Protonix) 40 mg DAILYAC PO Last administered on 12/13/19at 09:00; Start 10/23/19 at 07:30 Insulin Human Lispro (HumaLOG) 9 units 1X ONCE SQ ; Start 10/22/19 at 12:15; Stop 10/22/19 at 12:16; Status Cancel Influenza Virus Vaccine Quadrival (Afluria Quad 2019-20 (3yr Up) Syringe) 0.5 ml ONCE ONCE VAX IM Last administered on 10/22/19at 16:43; Start 10/22/19 at 14:00; Stop 10/22/19 at 14:03; Status DC Cefdinir (Omnicef) 300 mg BID PO Last administered on 10/23/19at 08:59; Start 10/22/19 at 21:00 Active Scripts Active Doxycycline Monohydrate 100 Mg Capsule 1 Cap PO BID 7 Days Pantoprazole Sodium (Pantoprazole Sodium) 40 Mg Tablet.dr 40 Mg PO DAILYAC 30 Days Metformin Hcl 500 Mg Tablet 500 Mg PO BIDWMEALS 30 Days Levemir (Insulin Detemir) 100 Unit/1 Ml Vial 18 Unit SQ BID 30 Days Lisinopril 5 Mg Tablet 1 Tab PO DAILY Levemir (Insulin Detemir) 100 Unit/1 Ml Vial 30 Unit SQ QHS 30 Days Reported Levemir Flextouch (Insulin Detemir) 100 Unit/1 Ml Insuln.pen 10 Unit SQ DAILY Metformin Hcl 500 Mg Tablet 500 Mg PO BIDWMEALS Amlodipine Besylate 10 Mg Tablet 10 Mg PO DAILY Losartan Potassium 50 Mg Tablet 25 Mg PO DAILY Gabapentin 800 Mg Tablet 800 Mg PO TID Vitals/I & O Vital Sign - Last 24 Hours 10/22/19 10/22/19 10/22/19 10/22/19 15:00 19:10 20:14 20:54 Temp 98.2 98.6 98.2 98.6 Pulse 89 100 100 Resp 18 20 B/P (MAP) 115/72 (86) 139/79 (99) 139/79 Pulse Ox 99 94 O2 Delivery Room Air Room Air Room Air 10/22/19 10/23/19 10/23/19 10/23/19 23:30 03:10 07:00 08:00 Temp 98.7 98.2 98.2 98.7 98.2 98.2 Pulse 98 84 92 Resp 18 18 18 B/P (MAP) 126/69 (88) 126/64 (84) 116/86 (96) Pulse Ox 96 95 99 O2 Delivery Room Air Room Air Room Air Room Air 10/23/19 10/23/19 10/23/19 10/23/19 09:00 09:00 09:19 11:00 Temp 98.9 98.9 Pulse 92 92 92 96 Resp 16 B/P (MAP) 116/86 116/86 116/86 154/92 (112) Pulse Ox 100 O2 Delivery Room Air Intake and Output 10/22/19 10/22/19 10/23/19 15:00 23:00 07:00 Intake Total 360 ml 120 ml 350 ml Balance 360 ml 120 ml 350 ml Problem List Problems Medical Problems: (1) GI bleeding Status: Acute (2) Intractable nausea and vomiting Status: Acute (3) Marijuana abuse Status: Acute Assessment N/V- with poorly controlled DM, most likely secondary to gastroparesis, medical therapy with improved glycemic control recommended. SONIYA EDUAROD MD Oct 23, 2019 12:21
--- NOTE | 2019-10-23 12:30 | PDOC3 ---
Discharge Summary Date of Admission: Oct 19, 2019 Date of Discharge: Oct 23, 2019 Follow-Up: 3-5 days Admitting Diagnosis comment: discharge dx Hyperglycemia, anion gap metabolic acidosis, leukocytosis, electrolyte disturbance hyponatremia. THC ABUSE DIABETES, UNCONTROLLED HTN UNCONTROLLED, improving Mild fatty infiltration of the liver. HX NONCOMPLIANCE MORBID OBESITY LEUKOCYTOSIS 10/21 // rapid response overnight for chest and arm pain. 10/22 SUSPECT SHE IS NONCOMPLIANT WITH ADA DIET Plan admit IV fluids, IV insulin, consult GI, replete electrolytes, empiric IV antibiotics, home meds, DVT prophylaxis. Full code CONTROL GLUCOSE. A1C IV HYDRALAZINE 10MG Q 4 HRS PRN BP SUPPORT lantus 16 units sq BID 10/23 insists/ demands on d/c today, see pcp [facility] 28 MIN PT exam, chart review,d/c planning > 50% of time spent with exam, chart review, pt care coordination Vitals Vitals Vital Signs Date Time Temp Pulse Resp B/P (MAP) Pulse Ox O2 Delivery O2 Flow Rate FiO2 10/23/19 09:19 92 116/86 10/23/19 08:00 Room Air 10/23/19 07:00 98.2 18 99 98.2 Physical Exam Physical Exam MUSCULOSKELETAL: Well developed, well nourished, good range of motion ENDOCRINE: No thyromegaly was palpated LYMPHATICS: No cervical chain or axillary nodes were noted HEMATOPOIETIC: No bruising NECK: Supple, no JVD, no thyromegaly was noted. LUNGS: Clear to auscultation in all lung chen without rhonchi or wheezing. HEART: RRR, S1, S2 present. Peripheral pulses intact, no obvious murmurs were noted. ABDOMEN: Soft, nontender. She has decreased bowel sounds. No organomegaly, normal bowel sounds. EXTREMITIES: Without any cyanosis, clubbing, or edema. Pedal pulses intact, Homans sign is negative. NEUROLOGIC: Normal speech, normal tone. A & O x 3, moves all extremities, no obvious focal deficits. PSYCHIATRIC: Normal affect, normal mood. Stable. SKIN: No ulcerations or rashes, good skin turgor, no jaundice. VASCULAR: Good capillary refill, neurovascular bundle appears to be intact. LABORATORY DATA: Drug screen positive for cannabinoids. Urinalysis negative. INR is 1. Gastroccult positive. General: Alert, Oriented X3, Cooperative, No acute distress Heart: Regular rate, Normal S1, Normal S2 Lungs: Clear Abdomen: Soft, No tenderness Extremities: No edema, Normal pulses Skin: No breakdown, No significant lesion FINAL DIAGNOSIS Problems Medical Problems: (1) GI bleeding Status: Acute (2) Intractable nausea and vomiting Status: Acute (3) Marijuana abuse Status: Acute Brief Hospital Course Ms. Sung is a 44 old [sex] who presented with [dka ] CONDITION AT DISCHARGE: Improved Discharge Medications Current Medications Ondansetron HCl (Zofran) 4 mg STK-MED ONCE .ROUTE ; Start 10/19/19 at 12:48; Stop 10/19/19 at 12:49; Status DC Sodium Chloride 1,000 ml @ 1,000 mls/hr Q1H IV Last administered on 10/19/19at 13:47; Start 10/19/19 at 12:49; Stop 10/19/19 at 13:48; Status DC Ondansetron HCl (Zofran) 4 mg 1X ONCE IV Last administered on 10/19/19at 13:46; Start 10/19/19 at 13:30; Stop 10/19/19 at 13:31; Status DC Lorazepam (Ativan Inj) 1 mg 1X ONCE IVP ; Start 10/19/19 at 13:30; Stop 10/19/19 at 13:31; Status DC Insulin Human Regular (HumuLIN R VIAL) 10 unit 1X ONCE IV Last administered on 10/19/19at 15:33; Start 10/19/19 at 14:30; Stop 10/19/19 at 14:31; Status DC Sodium Chloride 1,000 ml @ 1,000 mls/hr 1X ONCE IV Last administered on 10/19/19at 15:33; Start 10/19/19 at 14:30; Stop 10/19/19 at 15:29; Status DC Pantoprazole Sodium (PROTONIX VIAL for IV PUSH) 40 mg 1X ONCE IVP Last administered on 10/19/19at 15:32; Start 10/19/19 at 15:15; Stop 10/19/19 at 15:16; Status DC Ondansetron HCl (Zofran) 4 mg PRN Q8HRS PRN IV NAUSEA/VOMITING; Start 10/19/19 at 15:45; Stop 10/19/19 at 20:00; Status DC Sodium Chloride 1,000 ml @ 150 mls/hr Q6H40M IV Last administered on 10/20/19at 05:02; Start 10/19/19 at 15:42; Stop 10/20/19 at 15:41; Status DC Dextrose (Dextrose 50%-Water Syringe) 12.5 gm PRN Q15MIN PRN IV SEE COMMENTS; Start 10/19/19 at 15:45; Status Cancel Ceftriaxone Sodium (Rocephin) 1 gm Q24H IVP Last administered on 10/22/19at 16:37; Start 10/19/19 at 17:00; Stop 10/22/19 at 18:00; Status DC Diphenhydramine HCl (Benadryl) 25 mg 1X ONCE IVP Last administered on 10/19/19at 16:40; Start 10/19/19 at 16:15; Stop 10/19/19 at 16:16; Status DC Pantoprazole Sodium 80 mg/ Sodium Chloride 100 ml @ 10 mls/hr Q10H IV Last administered on 10/20/19at 02:43; Start 10/19/19 at 17:00; Stop 10/20/19 at 09:53; Status DC Fentanyl Citrate (Fentanyl 2ml Vial) 50 mcg 1X ONCE IVP ; Start 10/19/19 at 17:00; Stop 10/19/19 at 17:01; Status DC Lorazepam (Ativan Inj) 1 mg 1X ONCE IVP Last administered on 10/19/19at 23:25; Start 10/19/19 at 23:45; Stop 10/19/19 at 23:46; Status DC Diphenhydramine HCl (Benadryl) 12.5 mg PRN Q6HRS PRN IVP ITCHING Last administered on 10/23/19at 03:10; Start 10/20/19 at 00:15 Hydralazine HCl (Apresoline Inj) 10 mg PRN Q6HRS PRN IVP ELEVATED BP, SBP>170 Last administered on 10/20/19at 10:51; Start 10/20/19 at 00:15; Stop 10/20/19 at 14:16; Status DC Lorazepam (Ativan Inj) 0.5 mg PRN Q4HRS PRN IVP ANXIETY / AGITATION Last administered on 10/23/19 11:39; Start 10/20/19 at 00:15 Ondansetron HCl (Zofran) 4 mg PRN Q6HRS PRN IVP NAUSEA/VOMITING 1ST CHOICE Last administered on 10/21/19 06:18; Start 10/20/19 at 05:30 Insulin Human Lispro (HumaLOG) 0-7 UNITS TIDWMEALS SQ Last administered on 10/23/19 11:49; Start 10/20/19 at 08:30 Dextrose (Dextrose 50%-Water Syringe) 12.5 gm PRN Q15MIN PRN IV SEE COMMENTS; Start 10/20/19 at 08:15 Pantoprazole Sodium (Protonix) 40 mg DAILYAC PO Last administered on 10/21/19 09:09; Start 10/21/19 at 07:30; Stop 10/21/19 at 11:49; Status DC Lactobacillus Rhamnosus (Culturelle) 1 cap BID PO Last administered on 10/23/19at 08:59; Start 10/20/19 at 21:00 Lisinopril (Prinivil) 5 mg DAILY PO ; Start 10/20/19 at 15:00; Stop 10/20/19 at 16:07; Status DC Pantoprazole Sodium (Protonix) 40 mg DAILYAC PO ; Start 10/27/19 at 16:30; Stop 10/20/19 at 14:37; Status DC Insulin Glargine (Lantus Syringe) 18 unit BID SQ ; Start 10/20/19 at 21:00; Stop 10/20/19 at 16:07; Status DC Non-Formulary Medication (Insulin Detemir (Levemir)) 30 unit QHS SQ ; Start 10/20/19 at 21:00; Status UNV Hydralazine HCl (Apresoline Inj) 10 mg PRN Q4HRS PRN IVP ELEVATED BP, SEE COMMENTS Last administered on 10/21/19at 03:43; Start 10/20/19 at 14:15 Insulin Glargine (Lantus Syringe) 10 unit QHS SQ ; Start 10/20/19 at 21:00; Stop 10/20/19 at 14:39; Status DC Gabapentin (Neurontin) 800 mg TID PO Last administered on 10/23/19 09:00; Start 10/20/19 at 21:00 Losartan Potassium (Cozaar) 25 mg DAILY PO ; Start 10/21/19 at 09:00; Stop 10/20/19 at 22:46; Status DC Amlodipine Besylate (Norvasc) 10 mg DAILY PO Last administered on 10/23/19 09:19; Start 10/21/19 at 09:00 Metformin HCl (Glucophage) 500 mg BIDWMEALS PO ; Start 10/20/19 at 17:00; Stop 10/20/19 at 16:07; Status DC Insulin Glargine (Lantus Syringe) 10 unit DAILYWSUP SQ Last administered on 10/20/19at 17:48; Start 10/20/19 at 17:00; Stop 10/21/19 at 10:04; Status DC Losartan Potassium (Cozaar) 50 mg DAILY PO Last administered on 10/23/19 09:00; Start 10/20/19 at 23:00 Metoprolol Tartrate (Lopressor) 25 mg BID PO Last administered on 10/23/19 09:00; Start 10/20/19 at 23:00 Multi-Ingredient Mouthwash/Gargle (Gi Cocktail) 20 ml PRN QID PRN PO CHEST PAIN Last administered on 10/21/19at 19:42; Start 10/21/19 at 09:30 Insulin Glargine (Lantus Syringe) 16 unit DAILYWSUP SQ Last administered on 10/22/19at 17:00; Start 10/21/19 at 17:00 Pantoprazole Sodium (PROTONIX VIAL for IV PUSH) 40 mg BIDAC IVP Last adminis tered on 10/22/19at 08:08; Start 10/21/19 at 16:30; Stop 10/22/19 at 10:12; Status DC Potassium Chloride (Klor-Con) 40 meq 1X ONCE PO Last administered on 10/21/19at 13:47; Start 10/21/19 at 13:15; Stop 10/21/19 at 13:18; Status DC Insulin Glargine (Lantus Syringe) 16 unit DAILY08 SQ Last administered on 10/23/19 09:14; Start 10/22/19 at 08:30 Insulin Human Lispro (HumaLOG) 10 units ONCE ONCE SQ Last administered on 10/22/19at 08:35; Start 10/22/19 at 08:17; Stop 10/22/19 at 08:23; Status DC Insulin Human Lispro (HumaLOG) 10 units ONCE ONCE SQ Last administered on 10/22/19at 10:05; Start 10/22/19 at 09:57; Stop 10/22/19 at 10:00; Status DC Bisacodyl (Dulcolax Tab) 10 mg 1X ONCE PO Last administered on 10/22/19at 10:26; Start 10/22/19 at 10:15; Stop 10/22/19 at 10:16; Status DC Polyethylene Glycol (miraLAX PACKET) 17 gm PRN DAILY PRN PO CONSTIPATION; Start 10/22/19 at 10:15 Pantoprazole Sodium (Protonix) 40 mg DAILYAC PO Last administered on 10/23/19at 09:00; Start 10/23/19 at 07:30 Insulin Human Lispro (HumaLOG) 9 units 1X ONCE SQ ; Start 10/22/19 at 12:15; Stop 10/22/19 at 12:16; Status Cancel Influenza Virus Vaccine Quadrival (Afluria Quad 2019-20 (3yr Up) Syringe) 0.5 ml ONCE ONCE VAX IM Last administered on 10/22/19at 16:43; Start 10/22/19 at 14:00; Stop 10/22/19 at 14:03; Status DC Cefdinir (Omnicef) 300 mg BID PO Last administered on 10/23/19at 08:59; Start 10/22/19 at 21:00 Active Scripts Active Doxycycline Monohydrate 100 Mg Capsule 1 Cap PO BID 7 Days Pantoprazole Sodium (Pantoprazole Sodium) 40 Mg Tablet.dr 40 Mg PO DAILYAC 30 Days Metformin Hcl 500 Mg Tablet 500 Mg PO BIDWMEALS 30 Days Levemir (Insulin Detemir) 100 Unit/1 Ml Vial 18 Unit SQ BID 30 Days Lisinopril 5 Mg Tablet 1 Tab PO DAILY Levemir (Insulin Detemir) 100 Unit/1 Ml Vial 30 Unit SQ QHS 30 Days Reported Levemir Flextouch (Insulin Detemir) 100 Unit/1 Ml Insuln.pen 10 Unit SQ DAILY Metformin Hcl 500 Mg Tablet 500 Mg PO BIDWMEALS Amlodipine Besylate 10 Mg Tablet 10 Mg PO DAILY Losartan Potassium 50 Mg Tablet 25 Mg PO DAILY Gabapentin 800 Mg Tablet 800 Mg PO TID Vital Signs Vital Signs Date Time Temp Pulse Resp B/P (MAP) Pulse Ox O2 Delivery O2 Flow Rate FiO2 10/23/19 11:00 98.9 96 16 154/92 (112) 100 Room Air 98.9 Labs Laboratory Tests Test 10/21/19 14:40 10/21/19 17:02 10/21/19 21:15 10/22/19 05:15 Troponin I Quantitative < 0.017 ng/mL (0.000-0.055) Glucose (Fingerstick) 179 mg/dL (70-99) 251 mg/dL (70-99) White Blood Count 10.4 x10^3/uL (4.0-11.0) Red Blood Count 3.57 x10^6/uL (3.50-5.40) Hemoglobin 10.6 g/dL (12.0-15.5) Hematocrit 32.5 % (36.0-47.0) Mean Corpuscular Volume 91 fL (79-100) Mean Corpuscular Hemoglobin 30 pg (25-35) Mean Corpuscular Hemoglobin Concent 33 g/dL (31-37) Red Cell Distribution Width 14.3 % (11.5-14.5) Platelet Count 307 x10^3/uL (140-400) Neutrophils (%) (Auto) 55 % (31-73) Lymphocytes (%) (Auto) 36 % (24-48) Monocytes (%) (Auto) 8 % (0-9) Eosinophils (%) (Auto) 0 % (0-3) Basophils (%) (Auto) 1 % (0-3) Neutrophils # (Auto) 5.7 x10^3/uL (1.8-7.7) Lymphocytes # (Auto) 3.7 x10^3/uL (1.0-4.8) Monocytes # (Auto) 0.8 x10^3/uL (0.0-1.1) Eosinophils # (Auto) 0.0 x10^3/uL (0.0-0.7) Basophils # (Auto) 0.1 x10^3/uL (0.0-0.2) Test 10/22/19 07:50 10/22/19 08:55 10/22/19 09:23 10/22/19 10:37 Glucose (Fingerstick) 492 mg/dL (70-99) 452 mg/dL (70-99) 287 mg/dL (70-99) Sodium Level 132 mmol/L (136-145) Potassium Level 4.0 mmol/L (3.5-5.1) Chloride Level 97 mmol/L (98-107) Carbon Dioxide Level 25 mmol/L (21-32) Anion Gap 10 (6-14) Blood Urea Nitrogen 13 mg/dL (7-20) Creatinine 1.1 mg/dL (0.6-1.0) Estimated GFR (Cockcroft-Gault) 65.3 BUN/Creatinine Ratio 12 (6-20) Glucose Level 564 mg/dL (70-99) Calcium Level 9.0 mg/dL (8.5-10.1) Total Bilirubin 0.5 mg/dL (0.2-1.0) Aspartate Amino Transf (AST/SGOT) 14 U/L (15-37) Alanine Aminotransferase (ALT/SGPT) 14 U/L (14-59) Alkaline Phosphatase 99 U/L (46-116) Total Protein 7.5 g/dL (6.4-8.2) Albumin 3.5 g/dL (3.4-5.0) Albumin/Globulin Ratio 0.9 (1.0-1.7) Test 10/22/19 16:59 10/22/19 21:29 10/23/19 07:51 10/23/19 11:26 Glucose (Fingerstick) 192 mg/dL (70-99) 235 mg/dL (70-99) 330 mg/dL (70-99) 294 mg/dL (70-99) Laboratory Tests Test 10/22/19 16:59 10/22/19 21:29 10/23/19 07:51 10/23/19 11:26 Glucose (Fingerstick) 192 mg/dL (70-99) 235 mg/dL (70-99) 330 mg/dL (70-99) 294 mg/dL (70-99) Allergies Allergies Coded Allergies Type Severity Reaction Last Updated Verified No Known Drug Allergies 12/27/17 No Disposition/Orders: D/C to Home Patient Instructions d/c planning 28 min ROLA GALO MD Oct 23, 2019 12:30
[2019-10-23] MEDS ORDERED: METO25TA4 PO (12:36)
[2019-10-23] MEDS ORDERED: POLY17PO28 PO (12:36)
[2019-10-23] MEDS ORDERED: LACT1CAP19 PO (12:36)
[2019-10-23] MEDS ORDERED: INSU100I11 SQ (12:36)
[2019-10-23] MEDS ORDERED: CEFD300C PO (12:36)
[2019-10-23] MEDS ORDERED: VENL37.5 PO (12:37)
--- NOTE | 2019-10-23 13:48 | NUR ---
Patient is being escorted out ambulating willfully with her family and Inder Quevedo RN. Patient signed paperwork and wanted her medication to stop her anxiety attacks, and then refused to wait for him to get a hold of her. Anxious and aggitated, refused to wait, said she would be squared away. She just wanted to leave, I educated her to the best of my ability.
--- NOTE | 2019-10-23 13:57 | NUR ---
Patient states she can not have Efflexor because it makes her have SI. She informed me now, at the time of discharge. She wanted something stronger. I informed patient that her insurance is accepted for the doctor of her choice, (she chose [facility]) and would possibly be able top do more for her. Highly encouraged to follow up with her primary care physician. Pt consistently changed her mind continually. When educating patient about deep breathing exercises, and how to help calm herself down, she scornfully distastefully looked at me and stated "Girl, I've 40 years old, that shit isn't going to work for me!" She would be calm, and then suddenly agitated, and refused to listen.
[2019-10-27] MEDS ORDERED: PANTOPRAZOLE 40 MG TABLET.DR. PO SCH (16:30)
== END 2019-10-23 15:28 | disposition home or self-care (01) | DRG 377 ==
LOC: ER 12:34 → 6 SOUTH 14:26
PROVIDERS: ADMIT Internal Medicine; ATTEND Internal Medicine
PROC: 05H833Z Insertion of Infusion Device into Left Axillary Vein, Percutaneous Approach (ICD-10-PCS; principal; 2019-10-20)
PROC: B54NZZA Ultrasonography of Left Upper Extremity Veins, Guidance (ICD-10-PCS; 2019-10-20)
DX: K92.2 Gastrointestinal hemorrhage, unspecified (principal); E11.10 Type 2 diabetes mellitus with ketoacidosis without coma; E87.1 Hypo-osmolality and hyponatremia; E87.2 Acidosis; E78.00 Pure hypercholesterolemia, unspecified; E78.5 Hyperlipidemia, unspecified; F12.10 Cannabis abuse, uncomplicated; F17.210 Nicotine dependence, cigarettes, uncomplicated; F41.9 Anxiety disorder, unspecified; I10 Essential (primary) hypertension; K21.9 Gastro-esophageal reflux disease without esophagitis; K76.0 Fatty (change of) liver, not elsewhere classified; Z80.1 Family history of malignant neoplasm of trachea, bronchus and lung; Z82.3 Family history of stroke; Z82.49 Family history of ischemic heart disease and other diseases of the circulatory system; Z91.19 Patient's noncompliance with other medical treatment and regimen; Z83.3 Family history of diabetes mellitus; E66.01 Morbid (severe) obesity due to excess calories; F32.9 Major depressive disorder, single episode, unspecified; M19.90 Unspecified osteoarthritis, unspecified site
CPT/HCPCS: 36415; 36569; 36600; 76705; 80048; 80053; 80307; 81001; 81025; 82010; 82271; 82805; 82962; 83036; 83605; 83690; 83735; 84484; 85007; 85025; 85610; 90471; 90686; 93005; 96374; 96375; C9113; J0360; J0696; J1200; J1815; J2060; J2405; J7030; 99285-25; G0378